=== PATIENT | male | born 1960 | race African-American/Black ===

== ENCOUNTER 2018-04-03 13:02 | Inpatient (IN) ==
[2018-04-03 13:26] LABS: Baso % (Auto) 0.3 % (0.0-2.0); Eos # (Auto) 0.1 th/mm3 (0.0-0.4); Eos % (Auto) 0.8 % (0.0-4.0); Hematocrit 37.2 % (39.0-51.0); Hemoglobin 12.6 gm/dL (13.0-17.0); Lymph # (Auto) 3.5 th/mm3 (1.0-4.8); Lymph % (Auto) 20.8 % (9.0-44.0); Mean Corpuscular HGB Conc 33.9 % (32.0-36.0); Mean Corpuscular Hemoglobin 29.9 pg (27.0-34.0); Mean Corpuscular Volume 88.3 fL (80.0-100.0); Mean Platelet Volume 7.7 fL (7.0-11.0); Mono % (Auto) 5.9 % (0.0-8.0); Neut # (Auto) 12.3 th/mm3 (1.8-7.7); Neut % (Auto) 72.2 % (16.0-70.0); Platelet Count 198 th/mm3 (150-450); Red Blood Count 4.21 mil/mm3 (4.50-5.90); Red Cell Distribution Width 15.6 % (11.6-17.2)
[2018-04-03] MEDS ORDERED: fentaNYL Citrate Inj 100 MCG/2 ML Ampul ONE ×2 (13:29→16:24)
[2018-04-03 13:42] LABS: Activated Partial Thrombo Time 20.2 sec (24.3-30.1); Prothrombin Time 10.5 sec (9.8-11.6)
[2018-04-03 13:43] LABS: Anion Gap 8 meq/L (5-15); Blood Urea Nitrogen 12 mg/dL (7-18); Chloride 110 meq/L (98-107); Glomerular Filtration Rate 60 mL/min (>89); Glucose,Random 108 mg/dL (74-106); Potassium 4.3 meq/L (3.5-5.1); Sodium 145 meq/L (136-145)
[2018-04-03] MEDS ORDERED: fentaNYL Citrate Inj 100 MCG/2 ML Ampul IV.PUSH ONE (13:43)
[2018-04-03] MEDS ORDERED: HYDROmorphone PF Inj 2 MG/ML Vial IV.PUSH ONE (13:43)
--- NOTE | 2018-04-03 13:43 | ED ---
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 11 (7-18) mg/dL Creatinine 0.92 (0.60-1.30) mg/dL POC Creatinine (0.6-1.3) mg/dL Estimated GFR 85 L (>89) mL/min POC Glucose (68-110) mg/dL Random Glucose 124 H (74-106) mg/dL Lactic Acid (0.4-2.0) mmol/L Calcium 7.1 L* (8.5-10.1) mg/dL Prot Corrected Calcium 7.9 L (8.5-10.1) mg/dL Total Bilirubin (0.2-1.0) mg/dL AST (15-37) U/L ALT (12-78) U/L Alkaline Phosphatase (45-117) U/L Total Creatine Kinase 2599 H (39-308) U/L CK-MB (CK-2) 3.2 (0.5-3.6) ng/mL CK-MB (CK-2) % 0.1 (0.0-4.0) % Total Protein 5.6 L (6.4-8.2) g/dL Albumin (3.4-5.0) g/dL Vit D 1,25-Dihydroxy (18-64) pg/mL Urine Color (Yellw/Straw) Urine Clarity (Clear) Urine pH (5.0-8.5) Ur Specific [place] (1.002-1.035) Urine Protein (Neg-Trace) mg/dL Urine Glucose (UA) (Negative) mg/dL Urine Ketones (Negative) mg/dL Urine Occult Blood (Negative) Urine Nitrate (Negative) Urine Bilirubin (Negative) Urine Urobilinogen (Less than 2) mg/dL Ur Leukocyte Esterase (Negative) Urine RBC (0-3) /hpf Urine WBC (0-5) /hpf Urine Bacteria (None) /hpf Micro UA Comment Ur Microscopic Review Urine Culture Comments Nasal Screen MRSA (PCR) (Negative) Random Vancomycin Comment Urine Opiates Screen (Neg) Ur Barbiturates Screen (Neg) Ur Amphetamines Screen (Neg) U Benzodiazepines Scrn (Neg) Urine Cocaine Screen (Neg) U Cannabinoids Screen (Neg) Serum Alcohol (0-5) mg/dL Blood Type Antibody Screen MTS Gel Crossmatch Bld Prod Order Comment 04/06/18 04/07/18 04/07/18 Range/Units 10:04 04:35 04:35 WBC 8.4 (4.0-11.0) th/mm3 RBC 2.57 L (4.50-5.90) mil/mm3 Hgb 7.6 L (13.0-17.0) gm/dL POC Hgb (Calc) (13.0-17.0) g/dL Hct 22.6 L (39.0-51.0) % POC Hct (39-51.0) % MCV 88.0 (80.0-100.0) fL MCH 29.7 (27.0-34.0) pg MCHC 33.7 (32.0-36.0) % RDW 16.1 (11.6-17.2) % Plt Count 148 L (150-450) th/mm3 MPV 7.8 (7.0-11.0) fL Prelim Diff (Auto) Slide review pending Neut % (Auto) 67.8 (16.0-70.0) % Lymph % (Auto) 17.2 (9.0-44.0) % [place] % (Auto) 12.7 H (0.0-8.0) % Eos % (Auto) 1.4 (0.0-4.0) % Baso % (Auto) 0.9 (0.0-2.0) % Neut # (Auto) 5.7 (1.8-7.7) th/mm3 Lymph # (Auto) 1.5 (1.0-4.8) th/mm3 [place] # (Auto) 1.1 H (0.0-0.9) th/mm3 Eos # (Auto) 0.1 (0.0-0.4) th/mm3 Baso # (Auto) 0.1 (0.0-0.2) th/mm3 WBC Differential Manual diff final Diff Scan Seg Neuts % (Manual) 66 (16-70) % Band Neuts % (Manual) 1 (0-6) % Lymphocytes % (Manual) 17 (9-44) % Monocytes % (Manual) 10 H (0-8) % Eosinophils % (Manual) 3 (0-4) % Metamyelocytes % (Man) 2 H (0-1) % Myelocytes % (Man) 1 H (0-0) % Promyelocytes % (Man) (0-0) % Abs Neuts (Manual) 5.9 (1.8-7.7) th/mm3 Nucleated RBCs/100 WBC (0-0) /100 WBC Differential Comment . Platelet Estimate Low L (Normal) Platelet Morphology Normal (Normal) PT (9.8-11.6) sec INR Ratio APTT (24.3-30.1) sec Fibrinogen (227-377) mg/dL POC Sodium (137-144) mmol/L Sodium 140 (136-145) meq/L POC Potassium (3.6-5.0) mmol/L Potassium 4.1 (3.5-5.1) meq/L POC Chloride (102-111) mmol/L Chloride 104 (98-107) meq/L Carbon Dioxide 29.5 (21.0-32.0) meq/L Anion Gap 7 (5-15) meq/L POC BUN (5-21) mg/dL BUN 9 (7-18) mg/dL Creatinine 0.78 (0.60-1.30) mg/dL POC Creatinine (0.6-1.3) mg/dL Estimated GFR Greater than 89 (>89) mL/min POC Glucose (68-110) mg/dL Random Glucose 101 (74-106) mg/dL Lactic Acid (0.4-2.0) mmol/L Calcium 7.3 L* (8.5-10.1) mg/dL Prot Corrected Calcium 8.2 L (8.5-10.1) mg/dL Total Bilirubin (0.2-1.0) mg/dL AST (15-37) U/L ALT (12-78) U/L Alkaline Phosphatase (45-117) U/L Total Creatine Kinase (39-308) U/L CK-MB (CK-2) (0.5-3.6) ng/mL CK-MB (CK-2) % (0.0-4.0) % Total Protein 5.5 L (6.4-8.2) g/dL Albumin (3.4-5.0) g/dL Vit D 1,25-Dihydroxy 50 (18-64) pg/mL Urine Color (Yellw/Straw) Urine Clarity (Clear) Urine pH (5.0-8.5) Ur Specific [place] (1.002-1.035) Urine Protein (Neg-Trace) mg/dL Urine Glucose (UA) (Negative) mg/dL Urine Ketones (Negative) mg/dL Urine Occult Blood (Negative) Urine Nitrate (Negative) Urine Bilirubin (Negative) Urine Urobilinogen (Less than 2) mg/dL Ur Leukocyte Esterase (Negative) Urine RBC (0-3) /hpf Urine WBC (0-5) /hpf Urine Bacteria (None) /hpf Micro UA Comment Ur Microscopic Review Urine Culture Comments Nasal Screen MRSA (PCR) (Negative) Random Vancomycin Comment Urine Opiates Screen (Neg) Ur Barbiturates Screen (Neg) Ur Amphetamines Screen (Neg) U Benzodiazepines Scrn (Neg) Urine Cocaine Screen (Neg) U Cannabinoids Screen (Neg) Serum Alcohol (0-5) mg/dL Blood Type Antibody Screen MTS Gel Crossmatch Bld Prod Order Comment 04/08/18 04/08/18 04/10/18 Range/Units 03:25 03:25 03:51 WBC 8.8 10.1 (4.0-11.0) th/mm3 RBC 2.69 L 3.02 L (4.50-5.90) mil/mm3 Hgb 8.1 L 8.8 L (13.0-17.0) gm/dL POC Hgb (Calc) (13.0-17.0) g/dL Hct 23.4 L 26.4 L (39.0-51.0) % POC Hct (39-51.0) % MCV 86.7 87.5 (80.0-100.0) fL MCH 29.9 29.1 (27.0-34.0) pg MCHC 34.4 33.2 (32.0-36.0) % RDW 15.8 16.2 (11.6-17.2) % Plt Count 178 259 D (150-450) th/mm3 MPV 7.3 7.6 (7.0-11.0) fL Prelim Diff (Auto) Slide review pending Slide review pending Neut % (Auto) 64.5 64.1 (16.0-70.0) % Lymph % (Auto) 17.7 18.5 (9.0-44.0) % [place] % (Auto) 13.2 H 12.9 H (0.0-8.0) % Eos % (Auto) 4.0 3.9 (0.0-4.0) % Baso % (Auto) 0.6 0.6 (0.0-2.0) % Neut # (Auto) 5.6 6.5 (1.8-7.7) th/mm3 Lymph # (Auto) 1.5 1.9 (1.0-4.8) th/mm3 [place] # (Auto) 1.2 H 1.3 H (0.0-0.9) th/mm3 Eos # (Auto) 0.4 0.4 (0.0-0.4) th/mm3 Baso # (Auto) 0.1 0.1 (0.0-0.2) th/mm3 WBC Differential Manual diff final Manual diff final Diff Scan Seg Neuts % (Manual) 73 H 64 (16-70) % Band Neuts % (Manual) 2 1 (0-6) % Lymphocytes % (Manual) 9 21 (9-44) % Monocytes % (Manual) 10 H 12 H (0-8) % Eosinophils % (Manual) 4 1 (0-4) % Metamyelocytes % (Man) 1 (0-1) % Myelocytes % (Man) 1 H (0-0) % Promyelocytes % (Man) 1 H (0-0) % Abs Neuts (Manual) 6.8 6.7 (1.8-7.7) th/mm3 Nucleated RBCs/100 WBC 2 H (0-0) /100 WBC Differential Comment . . Platelet Estimate Normal Normal (Normal) Platelet Morphology Normal Clumped H (Normal) PT (9.8-11.6) sec INR Ratio APTT (24.3-30.1) sec Fibrinogen (227-377) mg/dL POC Sodium (137-144) mmol/L Sodium 138 (136-145) meq/L POC Potassium (3.6-5.0) mmol/L Potassium 3.5 (3.5-5.1) meq/L POC Chloride (102-111) mmol/L Chloride 101 (98-107) meq/L Carbon Dioxide 28.0 (21.0-32.0) meq/L Anion Gap 9 (5-15) meq/L POC BUN (5-21) mg/dL BUN 6 L (7-18) mg/dL Creatinine 0.82 (0.60-1.30) mg/dL POC Creatinine (0.6-1.3) mg/dL Estimated GFR Greater than 89 (>89) mL/min POC Glucose (68-110) mg/dL Random Glucose 98 (74-106) mg/dL Lactic Acid (0.4-2.0) mmol/L Calcium 7.1 L* (8.5-10.1) mg/dL Prot Corrected Calcium 7.9 L (8.5-10.1) mg/dL Total Bilirubin (0.2-1.0) mg/dL AST (15-37) U/L ALT (12-78) U/L Alkaline Phosphatase (45-117) U/L Total Creatine Kinase 1053 H (39-308) U/L CK-MB (CK-2) Less than 1.0 (0.5-3.6) ng/mL CK-MB (CK-2) % 0.1 (0.0-4.0) % Total Protein 5.6 L (6.4-8.2) g/dL Albumin (3.4-5.0) g/dL Vit D 1,25-Dihydroxy (18-64) pg/mL Urine Color (Yellw/Straw) Urine Clarity (Clear) Urine pH (5.0-8.5) Ur Specific [place] (1.002-1.035) Urine Protein (Neg-Trace) mg/dL Urine Glucose (UA) (Negative) mg/dL Urine Ketones (Negative) mg/dL Urine Occult Blood (Negative) Urine Nitrate (Negative) Urine Bilirubin (Negative) Urine Urobilinogen (Less than 2) mg/dL Ur Leukocyte Esterase (Negative) Urine RBC (0-3) /hpf Urine WBC (0-5) /hpf Urine Bacteria (None) /hpf Micro UA Comment Ur Microscopic Review Urine Culture Comments Nasal Screen MRSA (PCR) (Negative) Random Vancomycin Comment Urine Opiates Screen (Neg) Ur Barbiturates Screen (Neg) Ur Amphetamines Screen (Neg) U Benzodiazepines Scrn (Neg) Urine Cocaine Screen (Neg) U Cannabinoids Screen (Neg) Serum Alcohol (0-5) mg/dL Blood Type Antibody Screen MTS Gel Crossmatch Bld Prod Order Comment 04/10/18 04/10/18 04/11/18 Range/Units 03:51 21:55 00:29 WBC (4.0-11.0) th/mm3 RBC (4.50-5.90) mil/mm3 Hgb (13.0-17.0) gm/dL POC Hgb (Calc) (13.0-17.0) g/dL Hct (39.0-51.0) % POC Hct (39-51.0) % MCV (80.0-100.0) fL MCH (27.0-34.0) pg MCHC (32.0-36.0) % RDW (11.6-17.2) % Plt Count (150-450) th/mm3 MPV (7.0-11.0) fL Prelim Diff (Auto) Neut % (Auto) (16.0-70.0) % Lymph % (Auto) (9.0-44.0) % [place] % (Auto) (0.0-8.0) % Eos % (Auto) (0.0-4.0) % Baso % (Auto) (0.0-2.0) % Neut # (Auto) (1.8-7.7) th/mm3 Lymph # (Auto) (1.0-4.8) th/mm3 [place] # (Auto) (0.0-0.9) th/mm3 Eos # (Auto) (0.0-0.4) th/mm3 Baso # (Auto) (0.0-0.2) th/mm3 WBC Differential Diff Scan Seg Neuts % (Manual) (16-70) % Band Neuts % (Manual) (0-6) % Lymphocytes % (Manual) (9-44) % Monocytes % (Manual) (0-8) % Eosinophils % (Manual) (0-4) % Metamyelocytes % (Man) (0-1) % Myelocytes % (Man) (0-0) % Promyelocytes % (Man) (0-0) % Abs Neuts (Manual) (1.8-7.7) th/mm3 Nucleated RBCs/100 WBC (0-0) /100 WBC Differential Comment Platelet Estimate (Normal) Platelet Morphology (Normal) PT (9.8-11.6) sec INR Ratio APTT (24.3-30.1) sec Fibrinogen (227-377) mg/dL POC Sodium (137-144) mmol/L Sodium 136 (136-145) meq/L POC Potassium (3.6-5.0) mmol/L Potassium 4.7 (3.5-5.1) meq/L POC Chloride (102-111) mmol/L Chloride 99 (98-107) meq/L Carbon Dioxide 29.3 (21.0-32.0) meq/L Anion Gap 8 (5-15) meq/L POC BUN (5-21) mg/dL BUN 12 (7-18) mg/dL Creatinine 0.89 (0.60-1.30) mg/dL POC Creatinine (0.6-1.3) mg/dL Estimated GFR Greater than 89 (>89) mL/min POC Glucose (68-110) mg/dL Random Glucose 91 (74-106) mg/dL Lactic Acid 2.3 H 1.6 (0.4-2.0) mmol/L Calcium 8.6 (8.5-10.1) mg/dL Prot Corrected Calcium (8.5-10.1) mg/dL Total Bilirubin 0.5 (0.2-1.0) mg/dL AST 74 H (15-37) U/L ALT 33 (12-78) U/L Alkaline Phosphatase 105 (45-117) U/L Total Creatine Kinase (39-308) U/L CK-MB (CK-2) (0.5-3.6) ng/mL CK-MB (CK-2) % (0.0-4.0) % Total Protein 6.3 L D (6.4-8.2) g/dL Albumin 1.8 L (3.4-5.0) g/dL Vit D 1,25-Dihydroxy (18-64) pg/mL Urine Color (Yellw/Straw) Urine Clarity (Clear) Urine pH (5.0-8.5) Ur Specific [place] (1.002-1.035) Urine Protein (Neg-Trace) mg/dL Urine Glucose (UA) (Negative) mg/dL Urine Ketones (Negative) mg/dL Urine Occult Blood (Negative) Urine Nitrate (Negative) Urine Bilirubin (Negative) Urine Urobilinogen (Less than 2) mg/dL Ur Leukocyte Esterase (Negative) Urine RBC (0-3) /hpf Urine WBC (0-5) /hpf Urine Bacteria (None) /hpf Micro UA Comment Ur Microscopic Review Urine Culture Comments Nasal Screen MRSA (PCR) (Negative) Random Vancomycin Comment Urine Opiates Screen (Neg) Ur Barbiturates Screen (Neg) Ur Amphetamines Screen (Neg) U Benzodiazepines Scrn (Neg) Urine Cocaine Screen (Neg) U Cannabinoids Screen (Neg) Serum Alcohol (0-5) mg/dL Blood Type Antibody Screen MTS Gel Crossmatch Bld Prod Order Comment 04/11/18 04/12/18 04/12/18 Range/Units 03:54 07:32 18:45 WBC (4.0-11.0) th/mm3 RBC (4.50-5.90) mil/mm3 Hgb (13.0-17.0) gm/dL POC Hgb (Calc) (13.0-17.0) g/dL Hct (39.0-51.0) % POC Hct (39-51.0) % MCV (80.0-100.0) fL MCH (27.0-34.0) pg MCHC (32.0-36.0) % RDW (11.6-17.2) % Plt Count (150-450) th/mm3 MPV (7.0-11.0) fL Prelim Diff (Auto) Neut % (Auto) (16.0-70.0) % Lymph % (Auto) (9.0-44.0) % [place] % (Auto) (0.0-8.0) % Eos % (Auto) (0.0-4.0) % Baso % (Auto) (0.0-2.0) % Neut # (Auto) (1.8-7.7) th/mm3 Lymph # (Auto) (1.0-4.8) th/mm3 [place] # (Auto) (0.0-0.9) th/mm3 Eos # (Auto) (0.0-0.4) th/mm3 Baso # (Auto) (0.0-0.2) th/mm3 WBC Differential Diff Scan Seg Neuts % (Manual) (16-70) % Band Neuts % (Manual) (0-6) % Lymphocytes % (Manual) (9-44) % Monocytes % (Manual) (0-8) % Eosinophils % (Manual) (0-4) % Metamyelocytes % (Man) (0-1) % Myelocytes % (Man) (0-0) % Promyelocytes % (Man) (0-0) % Abs Neuts (Manual) (1.8-7.7) th/mm3 Nucleated RBCs/100 WBC (0-0) /100 WBC Differential Comment Platelet Estimate (Normal) Platelet Morphology (Normal) PT (9.8-11.6) sec INR Ratio APTT (24.3-30.1) sec Fibrinogen (227-377) mg/dL POC Sodium (137-144) mmol/L Sodium (136-145) meq/L POC Potassium (3.6-5.0) mmol/L Potassium (3.5-5.1) meq/L POC Chloride (102-111) mmol/L Chloride (98-107) meq/L Carbon Dioxide (21.0-32.0) meq/L Anion Gap (5-15) meq/L POC BUN (5-21) mg/dL BUN (7-18) mg/dL Creatinine 1.22 1.47 H (0.60-1.30) mg/dL POC Creatinine (0.6-1.3) mg/dL Estimated GFR 74 L 60 L (>89) mL/min POC Glucose (68-110) mg/dL Random Glucose (74-106) mg/dL Lactic Acid (0.4-2.0) mmol/L Calcium (8.5-10.1) mg/dL Prot Corrected Calcium (8.5-10.1) mg/dL Total Bilirubin (0.2-1.0) mg/dL AST (15-37) U/L ALT (12-78) U/L Alkaline Phosphatase (45-117) U/L Total Creatine Kinase 550 H (39-308) U/L CK-MB (CK-2) Less than 1.0 (0.5-3.6) ng/mL CK-MB (CK-2) % 0.2 (0.0-4.0) % Total Protein (6.4-8.2) g/dL Albumin (3.4-5.0) g/dL Vit D 1,25-Dihydroxy (18-64) pg/mL Urine Color (Yellw/Straw) Urine Clarity (Clear) Urine pH (5.0-8.5) Ur Specific [place] (1.002-1.035) Urine Protein (Neg-Trace) mg/dL Urine Glucose (UA) (Negative) mg/dL Urine Ketones (Negative) mg/dL Urine Occult Blood (Negative) Urine Nitrate (Negative) Urine Bilirubin (Negative) Urine Urobilinogen (Less than 2) mg/dL Ur Leukocyte Esterase (Negative) Urine RBC (0-3) /hpf Urine WBC (0-5) /hpf Urine Bacteria (None) /hpf Micro UA Comment Ur Microscopic Review Urine Culture Comments Nasal Screen MRSA (PCR) (Negative) Random Vancomycin 13.8 Comment Urine Opiates Screen (Neg) Ur Barbiturates Screen (Neg) Ur Amphetamines Screen (Neg) U Benzodiazepines Scrn (Neg) Urine Cocaine Screen (Neg) U Cannabinoids Screen (Neg) Serum Alcohol (0-5) mg/dL Blood Type Antibody Screen MTS Gel Crossmatch Bld Prod Order Comment 10/11/2404/13/18 04/13/18 Range/Units 03:45 05:11 07:26 WBC (4.0-11.0) th/mm3 RBC (4.50-5.90) mil/mm3 Hgb 7.3 L (13.0-17.0) gm/dL POC Hgb (Calc) (13.0-17.0) g/dL Hct 22.5 L (39.0-51.0) % POC Hct (39-51.0) % MCV (80.0-100.0) fL MCH (27.0-34.0) pg MCHC (32.0-36.0) % RDW (11.6-17.2) % Plt Count (150-450) th/mm3 MPV (7.0-11.0) fL Prelim Diff (Auto) Neut % (Auto) (16.0-70.0) % Lymph % (Auto) (9.0-44.0) % [place] % (Auto) (0.0-8.0) % Eos % (Auto) (0.0-4.0) % Baso % (Auto) (0.0-2.0) % Neut # (Auto) (1.8-7.7) th/mm3 Lymph # (Auto) (1.0-4.8) th/mm3 [place] # (Auto) (0.0-0.9) th/mm3 Eos # (Auto) (0.0-0.4) th/mm3 Baso # (Auto) (0.0-0.2) th/mm3 WBC Differential Diff Scan Seg Neuts % (Manual) (16-70) % Band Neuts % (Manual) (0-6) % Lymphocytes % (Manual) (9-44) % Monocytes % (Manual) (0-8) % Eosinophils % (Manual) (0-4) % Metamyelocytes % (Man) (0-1) % Myelocytes % (Man) (0-0) % Promyelocytes % (Man) (0-0) % Abs Neuts (Manual) (1.8-7.7) th/mm3 Nucleated RBCs/100 WBC (0-0) /100 WBC Differential Comment Platelet Estimate (Normal) Platelet Morphology (Normal) PT (9.8-11.6) sec INR Ratio APTT (24.3-30.1) sec Fibrinogen (227-377) mg/dL POC Sodium (137-144) mmol/L Sodium (136-145) meq/L POC Potassium (3.6-5.0) mmol/L Potassium (3.5-5.1) meq/L POC Chloride (102-111) mmol/L Chloride (98-107) meq/L Carbon Dioxide (21.0-32.0) meq/L Anion Gap (5-15) meq/L POC BUN (5-21) mg/dL BUN (7-18) mg/dL Creatinine 1.27 (0.60-1.30) mg/dL POC Creatinine (0.6-1.3) mg/dL Estimated GFR 71 L (>89) mL/min POC Glucose (68-110) mg/dL Random Glucose (74-106) mg/dL Lactic Acid (0.4-2.0) mmol/L Calcium (8.5-10.1) mg/dL Prot Corrected Calcium (8.5-10.1) mg/dL Total Bilirubin (0.2-1.0) mg/dL AST (15-37) U/L ALT (12-78) U/L Alkaline Phosphatase (45-117) U/L Total Creatine Kinase (39-308) U/L CK-MB (CK-2) (0.5-3.6) ng/mL CK-MB (CK-2) % (0.0-4.0) % Total Protein (6.4-8.2) g/dL Albumin (3.4-5.0) g/dL Vit D 1,25-Dihydroxy (18-64) pg/mL Urine Color (Yellw/Straw) Urine Clarity (Clear) Urine pH (5.0-8.5) Ur Specific [place] (1.002-1.035) Urine Protein (Neg-Trace) mg/dL Urine Glucose (UA) (Negative) mg/dL Urine Ketones (Negative) mg/dL Urine Occult Blood (Negative) Urine Nitrate (Negative) Urine Bilirubin (Negative) Urine Urobilinogen (Less than 2) mg/dL Ur Leukocyte Esterase (Negative) Urine RBC (0-3) /hpf Urine WBC (0-5) /hpf Urine Bacteria (None) /hpf Micro UA Comment Ur Microscopic Review Urine Culture Comments Nasal Screen MRSA (PCR) (Negative) Random Vancomycin Comment Urine Opiates Screen (Neg) Ur Barbiturates Screen (Neg) Ur Amphetamines Screen (Neg) U Benzodiazepines Scrn (Neg) Urine Cocaine Screen (Neg) U Cannabinoids Screen (Neg) Serum Alcohol (0-5) mg/dL Blood Type O Positive Antibody Screen Negative MTS Gel Crossmatch See Detail Bld Prod Order Comment 04/14/18 04/15/18 04/16/18 Range/Units 04:29 05:46 15:40 WBC (4.0-11.0) th/mm3 RBC (4.50-5.90) mil/mm3 Hgb 8.3 L 8.6 L (13.0-17.0) gm/dL POC Hgb (Calc) (13.0-17.0) g/dL Hct 25.0 L 26.1 L (39.0-51.0) % POC Hct (39-51.0) % MCV (80.0-100.0) fL MCH (27.0-34.0) pg MCHC (32.0-36.0) % RDW (11.6-17.2) % Plt Count (150-450) th/mm3 MPV (7.0-11.0) fL Prelim Diff (Auto) Neut % (Auto) (16.0-70.0) % Lymph % (Auto) (9.0-44.0) % [place] % (Auto) (0.0-8.0) % Eos % (Auto) (0.0-4.0) % Baso % (Auto) (0.0-2.0) % Neut # (Auto) (1.8-7.7) th/mm3 Lymph # (Auto) (1.0-4.8) th/mm3 [place] # (Auto) (0.0-0.9) th/mm3 Eos # (Auto) (0.0-0.4) th/mm3 Baso # (Auto) (0.0-0.2) th/mm3 WBC Differential Diff Scan Seg Neuts % (Manual) (16-70) % Band Neuts % (Manual) (0-6) % Lymphocytes % (Manual) (9-44) % Monocytes % (Manual) (0-8) % Eosinophils % (Manual) (0-4) % Metamyelocytes % (Man) (0-1) % Myelocytes % (Man) (0-0) % Promyelocytes % (Man) (0-0) % Abs Neuts (Manual) (1.8-7.7) th/mm3 Nucleated RBCs/100 WBC (0-0) /100 WBC Differential Comment Platelet Estimate (Normal) Platelet Morphology (Normal) PT (9.8-11.6) sec INR Ratio APTT (24.3-30.1) sec Fibrinogen (227-377) mg/dL POC Sodium (137-144) mmol/L Sodium (136-145) meq/L POC Potassium (3.6-5.0) mmol/L Potassium (3.5-5.1) meq/L POC Chloride (102-111) mmol/L Chloride (98-107) meq/L Carbon Dioxide (21.0-32.0) meq/L Anion Gap (5-15) meq/L POC BUN (5-21) mg/dL BUN (7-18) mg/dL Creatinine 1.12 (0.60-1.30) mg/dL POC Creatinine (0.6-1.3) mg/dL Estimated GFR 82 L (>89) mL/min POC Glucose (68-110) mg/dL Random Glucose (74-106) mg/dL Lactic Acid (0.4-2.0) mmol/L Calcium (8.5-10.1) mg/dL Prot Corrected Calcium (8.5-10.1) mg/dL Total Bilirubin (0.2-1.0) mg/dL AST (15-37) U/L ALT (12-78) U/L Alkaline Phosphatase (45-117) U/L Total Creatine Kinase (39-308) U/L CK-MB (CK-2) (0.5-3.6) ng/mL CK-MB (CK-2) % (0.0-4.0) % Total Protein (6.4-8.2) g/dL Albumin (3.4-5.0) g/dL Vit D 1,25-Dihydroxy (18-64) pg/mL Urine Color (Yellw/Straw) Urine Clarity (Clear) Urine pH (5.0-8.5) Ur Specific [place] (1.002-1.035) Urine Protein (Neg-Trace) mg/dL Urine Glucose (UA) (Negative) mg/dL Urine Ketones (Negative) mg/dL Urine Occult Blood (Negative) Urine Nitrate (Negative) Urine Bilirubin (Negative) Urine Urobilinogen (Less than 2) mg/dL Ur Leukocyte Esterase (Negative) Urine RBC (0-3) /hpf Urine WBC (0-5) /hpf Urine Bacteria (None) /hpf Micro UA Comment Ur Microscopic Review Urine Culture Comments Nasal Screen MRSA (PCR) (Negative) Random Vancomycin Comment Urine Opiates Screen (Neg) Ur Barbiturates Screen (Neg) Ur Amphetamines Screen (Neg) U Benzodiazepines Scrn (Neg) Urine Cocaine Screen (Neg) U Cannabinoids Screen (Neg) Serum Alcohol (0-5) mg/dL Blood Type Antibody Screen MTS Gel Crossmatch Bld Prod Order Comment 04/20/18 04/20/18 04/20/18 Range/Units 02:30 02:30 03:16 WBC 12.7 H (4.0-11.0) th/mm3 RBC 2.94 L (4.50-5.90) mil/mm3 Hgb 8.6 L (13.0-17.0) gm/dL POC Hgb (Calc) (13.0-17.0) g/dL Hct 25.4 L (39.0-51.0) % POC Hct (39-51.0) % MCV 86.4 (80.0-100.0) fL MCH 29.2 (27.0-34.0) pg MCHC 33.7 (32.0-36.0) % RDW 15.5 (11.6-17.2) % Plt Count 502 H D (150-450) th/mm3 MPV 7.0 (7.0-11.0) fL Prelim Diff (Auto) Slide review pending Neut % (Auto) 73.4 H (16.0-70.0) % Lymph % (Auto) 14.6 (9.0-44.0) % [place] % (Auto) 11.3 H (0.0-8.0) % Eos % (Auto) 0.3 (0.0-4.0) % Baso % (Auto) 0.4 (0.0-2.0) % Neut # (Auto) 9.3 H (1.8-7.7) th/mm3 Lymph # (Auto) 1.9 (1.0-4.8) th/mm3 [place] # (Auto) 1.4 H (0.0-0.9) th/mm3 Eos # (Auto) 0.0 (0.0-0.4) th/mm3 Baso # (Auto) 0.1 (0.0-0.2) th/mm3 WBC Differential . Diff Scan Auto diff confirmed Seg Neuts % (Manual) (16-70) % Band Neuts % (Manual) (0-6) % Lymphocytes % (Manual) (9-44) % Monocytes % (Manual) (0-8) % Eosinophils % (Manual) (0-4) % Metamyelocytes % (Man) (0-1) % Myelocytes % (Man) (0-0) % Promyelocytes % (Man) (0-0) % Abs Neuts (Manual) (1.8-7.7) th/mm3 Nucleated RBCs/100 WBC (0-0) /100 WBC Differential Comment . Platelet Estimate High H (Normal) Platelet Morphology Normal (Normal) PT (9.8-11.6) sec INR Ratio APTT (24.3-30.1) sec Fibrinogen (227-377) mg/dL POC Sodium (137-144) mmol/L Sodium 129 L (136-145) meq/L POC Potassium (3.6-5.0) mmol/L Potassium 4.6 (3.5-5.1) meq/L POC Chloride (102-111) mmol/L Chloride 95 L (98-107) meq/L Carbon Dioxide 29.3 (21.0-32.0) meq/L Anion Gap 5 (5-15) meq/L POC BUN (5-21) mg/dL BUN 22 H (7-18) mg/dL Creatinine 1.31 H (0.60-1.30) mg/dL POC Creatinine (0.6-1.3) mg/dL Estimated GFR 69 L (>89) mL/min POC Glucose (68-110) mg/dL Random Glucose 118 H (74-106) mg/dL Lactic Acid (0.4-2.0) mmol/L Calcium 8.6 (8.5-10.1) mg/dL Prot Corrected Calcium (8.5-10.1) mg/dL Total Bilirubin (0.2-1.0) mg/dL AST (15-37) U/L ALT (12-78) U/L Alkaline Phosphatase (45-117) U/L Total Creatine Kinase (39-308) U/L CK-MB (CK-2) (0.5-3.6) ng/mL CK-MB (CK-2) % (0.0-4.0) % Total Protein (6.4-8.2) g/dL Albumin (3.4-5.0) g/dL Vit D 1,25-Dihydroxy 29 (18-64) pg/mL Urine Color (Yellw/Straw) Urine Clarity (Clear) Urine pH (5.0-8.5) Ur Specific [place] (1.002-1.035) Urine Protein (Neg-Trace) mg/dL Urine Glucose (UA) (Negative) mg/dL Urine Ketones (Negative) mg/dL Urine Occult Blood (Negative) Urine Nitrate (Negative) Urine Bilirubin (Negative) Urine Urobilinogen (Less than 2) mg/dL Ur Leukocyte Esterase (Negative) Urine RBC (0-3) /hpf Urine WBC (0-5) /hpf Urine Bacteria (None) /hpf Micro UA Comment Ur Microscopic Review Urine Culture Comments Nasal Screen MRSA (PCR) (Negative) Random Vancomycin Comment Urine Opiates Screen (Neg) Ur Barbiturates Screen (Neg) Ur Amphetamines Screen (Neg) U Benzodiazepines Scrn (Neg) Urine Cocaine Screen (Neg) U Cannabinoids Screen (Neg) Serum Alcohol (0-5) mg/dL Blood Type Antibody Screen MTS Gel Crossmatch Bld Prod Order Comment 04/23/18 04/23/18 04/26/18 Range/Units 03:40 03:40 04:13 WBC 8.1 (4.0-11.0) th/mm3 RBC 3.02 L (4.50-5.90) mil/mm3 Hgb 8.7 L (13.0-17.0) gm/dL POC Hgb (Calc) (13.0-17.0) g/dL Hct 26.5 L (39.0-51.0) % POC Hct (39-51.0) % MCV 87.7 (80.0-100.0) fL MCH 28.8 (27.0-34.0) pg MCHC 32.8 (32.0-36.0) % RDW 15.6 (11.6-17.2) % Plt Count 412 (150-450) th/mm3 MPV 7.1 (7.0-11.0) fL Prelim Diff (Auto) Slide review pending Neut % (Auto) 55.4 (16.0-70.0) % Lymph % (Auto) 25.6 (9.0-44.0) % [place] % (Auto) 13.9 H (0.0-8.0) % Eos % (Auto) 4.3 H (0.0-4.0) % Baso % (Auto) 0.8 (0.0-2.0) % Neut # (Auto) 4.5 (1.8-7.7) th/mm3 Lymph # (Auto) 2.1 (1.0-4.8) th/mm3 [place] # (Auto) 1.1 H (0.0-0.9) th/mm3 Eos # (Auto) 0.3 (0.0-0.4) th/mm3 Baso # (Auto) 0.1 (0.0-0.2) th/mm3 WBC Differential Manual diff final Diff Scan Seg Neuts % (Manual) 51 (16-70) % Band Neuts % (Manual) 4 (0-6) % Lymphocytes % (Manual) 29 (9-44) % Monocytes % (Manual) 6 (0-8) % Eosinophils % (Manual) 7 H (0-4) % Metamyelocytes % (Man) 2 H (0-1) % Myelocytes % (Man) 1 H (0-0) % Promyelocytes % (Man) (0-0) % Abs Neuts (Manual) 4.7 (1.8-7.7) th/mm3 Nucleated RBCs/100 WBC (0-0) /100 WBC Differential Comment . Platelet Estimate Normal (Normal) Platelet Morphology Normal (Normal) PT (9.8-11.6) sec INR Ratio APTT (24.3-30.1) sec Fibrinogen (227-377) mg/dL POC Sodium (137-144) mmol/L Sodium 135 L 135 L (136-145) meq/L POC Potassium (3.6-5.0) mmol/L Potassium 4.8 4.4 (3.5-5.1) meq/L POC Chloride (102-111) mmol/L Chloride 97 L 97 L (98-107) meq/L Carbon Dioxide 30.1 30.1 (21.0-32.0) meq/L Anion Gap 8 8 (5-15) meq/L POC BUN (5-21) mg/dL BUN 12 9 (7-18) mg/dL Creatinine 1.06 0.98 (0.60-1.30) mg/dL POC Creatinine (0.6-1.3) mg/dL Estimated GFR 88 L Greater than 89 (>89) mL/min POC Glucose (68-110) mg/dL Random Glucose 94 108 H (74-106) mg/dL Lactic Acid (0.4-2.0) mmol/L Calcium 8.5 7.9 L (8.5-10.1) mg/dL Prot Corrected Calcium (8.5-10.1) mg/dL Total Bilirubin 0.3 (0.2-1.0) mg/dL AST 34 (15-37) U/L ALT 14 (12-78) U/L Alkaline Phosphatase 104 (45-117) U/L Total Creatine Kinase (39-308) U/L CK-MB (CK-2) (0.5-3.6) ng/mL CK-MB (CK-2) % (0.0-4.0) % Total Protein 7.0 (6.4-8.2) g/dL Albumin 1.9 L (3.4-5.0) g/dL Vit D 1,25-Dihydroxy (18-64) pg/mL Urine Color (Yellw/Straw) Urine Clarity (Clear) Urine pH (5.0-8.5) Ur Specific [place] (1.002-1.035) Urine Protein (Neg-Trace) mg/dL Urine Glucose (UA) (Negative) mg/dL Urine Ketones (Negative) mg/dL Urine Occult Blood (Negative) Urine Nitrate (Negative) Urine Bilirubin (Negative) Urine Urobilinogen (Less than 2) mg/dL Ur

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
[2018-04-03] MEDS ORDERED: Succinylcholine Inj 100 MG/5 ML Syringe IV.PUSH ONE (14:10)
[2018-04-03] MEDS ORDERED: Lidocaine PF 1% Inj 5 ML Syringe OTHER ONE (14:10)
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
[2018-04-03] MEDS ORDERED: Phenylephrine/NS 1000 MCG/10ML Syringe IV.PUSH ONE (14:15)
[2018-04-03] MEDS ORDERED: ceFAZolin 2 GM Premix Inj 2 GM/50 ML PIGGYBACK IV.SIG ONE (14:16)
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
[2018-04-03] MEDS ORDERED: Glycopyrrolate Inj 1 MG/5 ML Syringe IV.PUSH ONE (15:20)
[2018-04-03] MEDS ORDERED: Neostigmine Inj 5 MG/5 ML Syringe IV.PUSH ONE (15:20)
[2018-04-03] MEDS ORDERED: Bisacodyl 10 MG Supp RECTAL PRN (15:22)
[2018-04-03] MEDS ORDERED: Post-op Orders (for Pharmacy) OTHER STA (15:22)
[2018-04-03] MEDS ORDERED: HYDROmorphone PF Inj 1 MG/ML Ampul IV.PUSH PRN (15:22)
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
--- NOTE | 2018-04-03 16:15 | XR ---
EXAM DATE: 04/03/2018 12:00 AM EDT AGE/SEX: 89 years / Male INDICATIONS: I+D of the left tibia. CLINICAL DATA: This is the patient's subsequent encounter. Patient reports that signs and symptoms h ave been present for 1 day and indicates a pain score of Nonresponsive. MEDICAL/SURGICAL HISTORY: Non-responsive. Non-responsive. COMPARISON: No prior exams available for comparison. FINDINGS: Spot films reveal oblique fracture through the distal femur. Also fractures of the medial and lateral malleolus. CONCLUSION: Fractures of the distal femur and distal tibia and fibula as above. Electronically signed by: Chaim Hanna MD 04/03/2018 4:14 PM EDT
[2018-04-03] MEDS ORDERED: Morphine Inj 4 MG/ML Vial ONE (16:24)
[2018-04-03] MEDS ORDERED: *Meperidine Inj 25 MG/ML Vial PERIprocedural Use ONLY ONE (16:28)
[2018-04-03] MEDS ORDERED: *morphine SULFATE 4 MG/ML PERIprocedure ONLY ONE ×2 (16:51→16:59)
[2018-04-03] MEDS: Pantoprazole Inj 40 MG Vial IV.PUSH SCH (18:32)
[2018-04-03] MEDS ORDERED: Naloxone Inj 0.4 MG/ML Vial IV.PUSH PRN (18:40)
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
[2018-04-03] MEDS: Senna/Docusate Sodium 8.6/50 MG Tablet PO SCH (21:06)
[2018-04-03] MEDS: HYDROmorphone PF Inj 2 MG/ML Vial IV.PUSH PRN (21:07)
[2018-04-03] MEDS: ceFAZolin Inj 2,000 MG in Sodium Chlor 0.9% Inj 80 ML IV.SIG SCH (21:39)
[2018-04-03 21:46] LABS: Hematocrit 28.3 % (39.0-51.0); Hemoglobin 9.5 gm/dL (13.0-17.0)
[2018-04-03] MEDS: Gentamicin/NS 80 mg Premix 100 ML IV.SIG SCH (22:12)
[2018-04-04] MEDS: HYDROmorphone PCA Inj 6 MG/30 ML PCA.VIAL PCA PRN ×2 (00:43→12:04)
[2018-04-04] MEDS: Chlorhexidine Gluconate 2% 1 Pack (2 Cloths) TOPICAL SCH (03:06)
[2018-04-04] MEDS ORDERED: Chlorhexidine Gluconate 2% 1 Pack (2 Cloths) TOPICAL PRN (04:00)
[2018-04-04] MEDS: ceFAZolin Inj 2,000 MG in Sodium Chlor 0.9% Inj 80 ML IV.SIG SCH ×3 (06:05→22:00)
[2018-04-04] MEDS: Gentamicin/NS 80 mg Premix 100 ML IV.SIG SCH ×3 (06:38→22:00)
--- NOTE | 2018-04-04 08:22 | P.PNOP ---
Subjective Interval history: s/p I&D with exfix and vac application left leg doing well. resting comfortably Physical Exam Vital signs: Vital Signs 04/03/18 13:42 04/03/18 16:13 04/03/18 16:30 Temperature 98.2 F Pulse Rate 120 H 113 H Respiratory Rate 18 18 Blood Pressure 100/68 100/67 Pulse Oximetry 100 98 98 04/03/18 16:45 04/03/18 17:00 04/03/18 18:00 Temperature 97.9 F 97.7 F Pulse Rate 108 H 101 H 110 H Respiratory Rate 18 18 22 Blood Pressure 106/72 110/66 107/60 Pulse Oximetry 98 98 04/03/18 19:52 04/03/18 20:00 04/03/18 21:37 Temperature 97.5 F L Pulse Rate 108 H Respiratory Rate 20 12 Blood Pressure 95/61 L Pulse Oximetry 100 100 04/04/18 00:00 04/04/18 04:00 04/04/18 06:31 Temperature 97.8 F 98.5 F Pulse Rate 100 H 96 H Respiratory Rate 24 18 12 Blood Pressure 107/73 131/66 Pulse Oximetry 100 100 Intake & Output 04/03/18 04/04/18 04/04/18 18:59 06:59 18:59 Intake Total 4170 / 4170 3740 / 3740 Output Total 915 / 915 870 / 870 Balance 3255 / 3255 2870 / 2870 Weight 94 kg 100.3 kg Intake: IV 50 / 50 2300 / 2300 LR 1000 mL Inj 1,000 ML @ 125 1000 / 1000 mls/hr IV.CONT .Q8H [facility] Rx#: [id number] Gentamicin/NS 80 mg Premix 100 100 / 100 ML @ 200 mls/hr IV.SIG Q8H [facility] Rx#:[id number] LR 1000 mL Inj 1,000 ML @ 999 1000 / 1000 mls/hr IV.SIG BOLUS ONE Rx#: [id number] Ancef 2 GM Premix Inj 2 gm In 50 / 50 50 ml @ 0 mls/hr IV.SIG .STK- MED ONE Rx#:[id number] Ancef Inj 2,000 MG In NS Inj 80 200 / 200 ML @ 200 mls/hr IV.SIG Q8H [facility] Rx#:[id number] Oral 620 / 620 1440 / 1440 Anesthesia Amount 3500 / 3500 Output: Estimated Blood Loss 150 / 150 Urine Amount (Catheter) 425 / 425 400 / 400 Indwelling Urethral Catheter 425 / 425 400 / 400 Wound Vac Amount 340 / 340 470 / 470 Left Leg 340 / 340 470 / 470 Other: Mode Setting Left Leg Continuous Continuous Right Lower Leg Continuous Date of Last Bowel Movement 04/03/18 04/03/18 Weight On Admission 87.09 kg Narrative: LLE: dressings clean and dry. intact. +vac. good seal. +exfix and splint - Urinary Catheter Management Indwelling Urethral Catheter Cath placed during this visit: yes Reason for continuing: Other continuation reason Insertion date: 04/03/18 Insertion time: 14:10 Results - Labs CBC & Chem 7: 04/03/18 21:34 04/03/18 13:05 Laboratory Results - last 24 hr 04/03/18 04/03/18 04/03/18 13:05 13:05 13:05 WBC 17.0 H RBC 4.21 L Hgb 12.6 L POC Hgb (Calc) 12.6 L Hct 37.2 L POC Hct 37.0 L MCV 88.3 MCH 29.9 MCHC 33.9 RDW 15.6 Plt Count 198 MPV 7.7 Neut % (Auto) 72.2 H Lymph % (Auto) 20.8 Carver % (Auto) 5.9 Eos % (Auto) 0.8 Baso % (Auto) 0.3 Neut # (Auto) 12.3 H Lymph # (Auto) 3.5 Carver # (Auto) 1.0 H Eos # (Auto) 0.1 Baso # (Auto) 0.0 WBC Differential . Differential Comment Auto diff final PT 10.5 INR 1.0 APTT 20.2 L Fibrinogen POC Sodium 142 Sodium POC Potassium 4.4 Potassium POC Chloride 104 Chloride Carbon Dioxide Anion Gap POC BUN 11 BUN Creatinine POC Creatinine 1.1 Estimated GFR POC Glucose 108 Random Glucose Calcium Nasal Screen MRSA (PCR) Serum Alcohol Blood Type Antibody Screen 04/03/18 04/03/18 04/03/18 13:05 13:05 13:05 WBC RBC Hgb POC Hgb (Calc) Hct POC Hct MCV MCH MCHC RDW Plt Count MPV Neut % (Auto) Lymph % (Auto) Carver % (Auto) Eos % (Auto) Baso % (Auto) Neut # (Auto) Lymph # (Auto) Carver # (Auto) Eos # (Auto) Baso # (Auto) WBC Differential Differential Comment PT INR APTT Fibrinogen 257 POC Sodium Sodium 145 POC Potassium Potassium 4.3 POC Chloride Chloride 110 H Carbon Dioxide 27.0 Anion Gap 8 POC BUN BUN 12 Creatinine 1.06 POC Creatinine Estimated GFR 60 L POC Glucose Random Glucose 108 H Calcium 8.0 L Nasal Screen MRSA (PCR) Serum Alcohol Less than 3 Blood Type O Positive Antibody Screen Negative 04/03/18 04/03/18 19:50 21:34 WBC RBC Hgb 9.5 L D POC Hgb (Calc) Hct 28.3 L POC Hct MCV MCH MCHC RDW Plt Count MPV Neut % (Auto) Lymph % (Auto) Carver % (Auto) Eos % (Auto) Baso % (Auto) Neut # (Auto) Lymph # (Auto) Carver # (Auto) Eos # (Auto) Baso # (Auto) WBC Differential Differential Comment PT INR APTT Fibrinogen POC Sodium Sodium POC Potassium Potassium POC Chloride Chloride Carbon Dioxide Anion Gap POC BUN BUN Creatinine POC Creatinine Estimated GFR POC Glucose Random Glucose Calcium Nasal Screen MRSA (PCR) Not detected Serum Alcohol Blood Type Antibody Screen - Imaging Impressions Knee CT 04/03/18 00:00 CONCLUSION: 1. There is a oblique distracted fracture through the distal femur involving the lateral femoral condyle. 2. There is complete dislocation of the patella laterally. 3. Small fracture involving the very top of the fibula. 4. Subcutaneous air is seen throughout the soft tissues surrounding the knee joint. Tibia/Fibula X-Ray 04/03/18 00:00 CONCLUSION: Marked improvement in previous lateral subluxation at the tarsometatarsal joints. Reduction of previous dislocation of the great toe. Displaced fracture at the third metatarsal head and neck remains. Fractures also present at the proximal metatarsals. Tibia/Fibula X-Ray 04/03/18 00:00 CONCLUSION: Fractures of the distal femur and distal tibia and fibula as above. Chest X-Ray 04/03/18 13:04 CONCLUSION: No acute intrathoracic disease. Pelvis X-Ray 04/03/18 13:04 CONCLUSION: There is some deformity involving the superior left pubic ramus suggestive of a nondisplaced fracture. No evidence of joint dislocation. Ankle X-Ray 04/03/18 13:07 CONCLUSION: Probable Lisfranc fracture. Plain films of the foot are warranted for further assessment. The distal tibia and fibula appear intact. I do not have a lateral examination to assess the talus or calcaneus. Femur X-Ray 04/03/18 13:07 CONCLUSION: The bony structures the femur is grossly intact. There is subcutaneous emphysema throughout the soft tissues. No definite joint dislocation at the hip.. There appears to be complete dislocation of the patella laterally. Tibia/Fibula X-Ray 04/03/18 13:08 CONCLUSION: Nondisplaced fractures involving the distal fibula and medial malleolus of the tibia. Abdomen/Pelvis CT 04/03/18 13:09 CONCLUSION: 1. Nondisplaced fracture through the left superior pubic ramus. 2. No acute intra-abdominal or pelvic pathology. Chest CT 04/03/18 13:09 CONCLUSION: 1. 5 mm calcified granuloma in the right upper lung. 2. No acute intrathoracic disease. Foot X-Ray 04/03/18 13:31 CONCLUSION: Lisfranc type fracture dislocation across the tarsometatarsal joints with lateral subluxation at every joint. Dislocation at the first MTP as well. Assessment and Plan - Assessment and Plan 1) Right foot first metatarsal phalangeal joint dislocation 2) right foot first, second, third, fourth, and fifth tarsometatarsal joint dislocations 3) right ankle fibula fracture 4) Open left distal femur fracture 5) open left proximal tibia fracture 6) Left ankle bimalleolar fracture 7) Open left knee joint 8) Degloving injury left leg 9) Pubic rami fractures patient has very complex injuries and will require multiple surgeries. maintain vac plan for repeat I&D later this week with Pasquale
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
[2018-04-04] MEDS: Senna/Docusate Sodium 8.6/50 MG Tablet PO SCH ×2 (09:16→21:48)
[2018-04-04] MEDS: Folic Acid 1 MG Tablet PO SCH (09:16)
[2018-04-04 09:30] LABS: Baso % (Auto) 0.2 % (0.0-2.0); Lymph # (Auto) 1.7 th/mm3 (1.0-4.8); Lymph % (Auto) 19.7 % (9.0-44.0); Mean Corpuscular HGB Conc 33.3 % (32.0-36.0); Mean Corpuscular Hemoglobin 29.8 pg (27.0-34.0); Mean Corpuscular Volume 89.7 fL (80.0-100.0); Mean Platelet Volume 8.4 fL (7.0-11.0); Mono # (Auto) 0.8 th/mm3 (0.0-0.9); Mono % (Auto) 9.2 % (0.0-8.0); Neut # (Auto) 6.2 th/mm3 (1.8-7.7); Neut % (Auto) 70.9 % (16.0-70.0); Platelet Count 137 th/mm3 (150-450); Red Blood Count 2.68 mil/mm3 (4.50-5.90); Red Cell Distribution Width 15.8 % (11.6-17.2); White Blood Count 8.8 th/mm3 (4.0-11.0)
[2018-04-04 10:16] LABS: Albumin 2.8 g/dL (3.4-5.0); Carbon Dioxide 22.9 meq/L (21.0-32.0); Potassium 5.3 meq/L (3.5-5.1); Total Protein 5.6 g/dL (6.4-8.2)
[2018-04-04 11:38] LABS: Bacteria,Urine Rare /hpf; Bilirubin,Urine Negative (Negative); Clarity,Urine Hazy (Clear); Color,Urine Yellow (Yellw/Straw); Glucose,Urine (UA) Negative (Negative); Leukocyte Esterase,Urine Small (Negative); Nitrite,Urine Negative (Negative); Specific Gravity,Urine 1.026 (1.002-1.035)
[2018-04-04 11:42] LABS: Amphetamine Screen,Urine Neg (Neg); Barbiturate Screen,Urine Neg (Neg); Cannabinoid Screen,Urine Neg (Neg); Cocaine Screen,Urine Neg (Neg)
[2018-04-04 11:53] LABS: Opiate Screen,Urine Pos (Neg)
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
[2018-04-04] MEDS ORDERED: Sod Chloride 0.9% Inj 1,000 ML IV.SIG SCH (13:45)
[2018-04-04] MEDS: Sod Chloride 0.9% Inj 1,000 ML IV.CONT SCH ×2 (13:51→21:49)
[2018-04-04] MEDS ORDERED: Sodium Chlor 0.9% Inj 250 ML IV.SIG SCH (14:00)
[2018-04-04] MEDS ORDERED: Enoxaparin Inj 40 MG/0.4 ML Syringe SQ SCH (15:15)
[2018-04-04] MEDS: Pantoprazole Inj 40 MG Vial IV.PUSH SCH (16:37)
[2018-04-04 16:52] LABS: Creatine Kinase MB 44.6 ng/mL (0.5-3.6)
[2018-04-05 04:03] LABS: Baso % (Auto) 0.5 % (0.0-2.0); Hematocrit 23.3 % (39.0-51.0); Hemoglobin 7.8 gm/dL (13.0-17.0); Lymph # (Auto) 1.6 th/mm3 (1.0-4.8); Lymph % (Auto) 19.7 % (9.0-44.0); Mean Corpuscular HGB Conc 33.7 % (32.0-36.0); Mean Corpuscular Hemoglobin 29.9 pg (27.0-34.0); Mean Platelet Volume 8.1 fL (7.0-11.0); Mono # (Auto) 0.6 th/mm3 (0.0-0.9); Neut # (Auto) 5.7 th/mm3 (1.8-7.7); Neut % (Auto) 71.8 % (16.0-70.0); Platelet Count 117 th/mm3 (150-450); Red Blood Count 2.62 mil/mm3 (4.50-5.90); Red Cell Distribution Width 15.6 % (11.6-17.2)
[2018-04-05] MEDS ORDERED: Chlorhexidine Gluconate 2% 1 Pack (2 Cloths) TOPICAL ONE (04:07)
[2018-04-05] MEDS ORDERED: Metoprolol Tartrate 25 MG Tablet PO ONE (04:07)
[2018-04-05 04:26] LABS: Calcium 7.3 mg/dL (8.5-10.1); Carbon Dioxide 25.6 meq/L (21.0-32.0); Potassium 4.5 meq/L (3.5-5.1)
[2018-04-05 04:38] LABS: Total Protein 5.7 g/dL (6.4-8.2)
[2018-04-05] MEDS ORDERED: Sodium Chlor 0.9% Inj 500 ML IV.SIG SCH (05:00)
[2018-04-05] MEDS: HYDROmorphone PCA Inj 6 MG/30 ML PCA.VIAL PCA PRN ×2 (06:00→13:33)
[2018-04-05] MEDS: ceFAZolin Inj 2,000 MG in Sodium Chlor 0.9% Inj 80 ML IV.SIG SCH ×2 (06:45→14:22)
[2018-04-05] MEDS: Sod Chloride 0.9% Inj 1,000 ML IV.CONT SCH ×2 (06:46→15:46)
[2018-04-05] MEDS: Gentamicin/NS 80 mg Premix 100 ML IV.SIG SCH ×3 (06:47→17:44)
[2018-04-05] MEDS ORDERED: ceFAZolin 2 GM Premix Inj 2 GM/50 ML PIGGYBACK IV.SIG ONE (07:08)
[2018-04-05] MEDS ORDERED: Lidocaine PF 1% Inj 5 ML Syringe OTHER ONE (09:00)
[2018-04-05] MEDS: Enoxaparin Inj 30 MG/0.3 ML Syringe SQ SCH ×2 (09:39→20:32)
[2018-04-05] MEDS: Folic Acid 1 MG Tablet PO SCH (09:39)
[2018-04-05] MEDS: Senna/Docusate Sodium 8.6/50 MG Tablet PO SCH ×2 (09:40→20:33)
[2018-04-05] MEDS ORDERED: Post-op Orders (for Pharmacy) OTHER STA (10:03)
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
[2018-04-05] MEDS ORDERED: Morphine Inj 4 MG/ML Vial ONE (11:01)
[2018-04-05] MEDS ORDERED: fentaNYL Citrate Inj 100 MCG/2 ML Ampul ONE ×2 (11:01)
[2018-04-05] MEDS ORDERED: *Meperidine Inj 25 MG/ML Vial PERIprocedural Use ONLY ONE (11:11)
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
[2018-04-05 13:30] LABS: Hematocrit 20.3 % (39.0-51.0); Hemoglobin 6.9 gm/dL (13.0-17.0)
[2018-04-05] MEDS ORDERED: Sodium Chlor 0.9% Inj 250 ML IV.SIG SCH (15:00)
--- NOTE | 2018-04-05 15:07 | OTSOAPIP ---
PATIENT IS OFF FLOOR FOR SURGERY. WILL REATTEMPT EVALUATION TOMORROW. Therapist: ELSA BURNETTE, OTR/L Signature on file
--- NOTE | 2018-04-05 16:08 | XR ---
EXAM DATE: 04/05/2018 12:00 AM EDT AGE/SEX: 57 years / Male INDICATIONS: ORIF left ankle fracture. CLINICAL DATA: This is the patient's subsequent encounter. Patient reports that signs and symptoms h ave been present for 2 days and indicates a pain score of Nonresponsive. MEDICAL/SURGICAL HISTORY: Non-responsive. Non-responsive. [place] [facility] [place]. . FINDINGS: There is plate and screw fixation of the lateral malleolus and lack screw fixation of the medial mall eolus. Normal alignment. CONCLUSION: Fixation left ankle as above. Electronically signed by: Chaim Hanna MD 04/05/2018 4:07 PM EDT
[2018-04-05] MEDS: ceFAZolin 2 GM Premix Inj 2 GM/100 ML BAG IV.SIG SCH (18:11)
[2018-04-05] MEDS: Pantoprazole Inj 40 MG Vial IV.PUSH SCH (18:11)
--- NOTE | 2018-04-05 21:15 | CT ---
EXAM DATE: 04/05/2018 3:13 PM EDT AGE/SEX: 57 years / Male INDICATIONS: Fracture. CLINICAL DATA: This is the patient's initial encounter. Patient reports that signs and symptoms have been present for 1 day and indicates a pain score of 8/10. MEDICAL/SURGICAL HISTORY: None. None. RADIATION DOSE: 7.29 CTDI (mGy) COMPARISON: [facility] – [place] FOOT LIMITED RIGHT 2V, 04/03/2018. . TECHNIQUE: Multiple contiguous axial images were acquired using a multirow detector CT scanner witho ut contrast. Multiplanar reconstruction was performed in the sagittal and coronal planes. Using auto mated exposure control and adjustment of the mA and/or kV according to patient size, radiation dose w as kept as low as reasonably achievable to obtain optimal diagnostic quality images. DICOM format im age data is available electronically for review and comparison. FINDINGS: First digit: Longitudinal fracture through the proximal metaphysis and diametaphysis of the metatarsu s with moderate displacement. Second digit: Dorsal dislocation of the metatarsus and comminuted fracture at the metatarsal tarsal j unction. Third digit: Distal metaphyseal displaced fracture of the metatarsus. The shaft of the metatarsals is dislocated laterally to the phalanges. Fourth digit: Mildly comminuted fracture of the proximal metatarsus and adjacent multangular bone. Fifth digit: Metatarsal bone is intact. Midfoot: There is a comminuted fracture of the lateral aspect of the cuboid bone. Other: Oblique nondisplaced fracture of the distal fibula.. CONCLUSION: 1. Multiple fractures and dislocations. Electronically signed by: Marco Antonio Melara MD 04/05/2018 9:14 PM EDT
[2018-04-05] MEDS: Acetaminophen 325 MG Tablet PO PRN (23:14)
[2018-04-06] MEDS: Gentamicin/NS 80 mg Premix 100 ML IV.SIG SCH ×3 (05:11→19:36)
[2018-04-06] MEDS: Sod Chloride 0.9% Inj 1,000 ML IV.CONT SCH ×3 (05:12→16:58)
[2018-04-06] MEDS: ceFAZolin 2 GM Premix Inj 2 GM/100 ML BAG IV.SIG SCH ×3 (05:12→18:30)
[2018-04-06] MEDS: Chlorhexidine Gluconate 2% 1 Pack (2 Cloths) TOPICAL SCH (05:13)
[2018-04-06] MEDS: Acetaminophen 325 MG Tablet PO PRN ×3 (05:13→23:38)
[2018-04-06] MEDS: Folic Acid 1 MG Tablet PO SCH ×2 (07:57→08:07)
[2018-04-06] MEDS: Senna/Docusate Sodium 8.6/50 MG Tablet PO SCH ×3 (07:58→21:10)
[2018-04-06] MEDS: Enoxaparin Inj 30 MG/0.3 ML Syringe SQ SCH ×3 (07:58→21:10)
[2018-04-06] MEDS: Gabapentin 300 MG Capsule PO SCH ×3 (08:14→18:00)
[2018-04-06] MEDS: Methocarbamol 500 MG Tablet PO SCH ×3 (08:14→21:10)
[2018-04-06] MEDS ORDERED: Enoxaparin Inj 30 MG/0.3 ML Syringe SQ SCH (10:00)
[2018-04-06 10:26] LABS: Baso % (Auto) 0.5 % (0.0-2.0); Eos # (Auto) 0.1 th/mm3 (0.0-0.4); Eos % (Auto) 0.9 % (0.0-4.0); Hematocrit 24.7 % (39.0-51.0); Hemoglobin 8.3 gm/dL (13.0-17.0); Mean Corpuscular HGB Conc 33.6 % (32.0-36.0); Mean Corpuscular Hemoglobin 29.8 pg (27.0-34.0); Mean Corpuscular Volume 88.7 fL (80.0-100.0); Mean Platelet Volume 7.8 fL (7.0-11.0); Mono # (Auto) 0.9 th/mm3 (0.0-0.9); Mono % (Auto) 11.5 % (0.0-8.0); Neut # (Auto) 5.8 th/mm3 (1.8-7.7); Neut % (Auto) 74.1 % (16.0-70.0); Platelet Count 119 th/mm3 (150-450); Red Blood Count 2.78 mil/mm3 (4.50-5.90); Red Cell Distribution Width 16.4 % (11.6-17.2); White Blood Count 7.8 th/mm3 (4.0-11.0)
[2018-04-06 10:47] LABS: Calcium 7.1 mg/dL (8.5-10.1); Carbon Dioxide 26.2 meq/L (21.0-32.0); Potassium 4.2 meq/L (3.5-5.1)
[2018-04-06] MEDS ORDERED: HYDROmorphone PCA Inj 6 MG/30 ML PCA.VIAL PCA PRN (10:58)
[2018-04-06 11:11] LABS: Total Protein 5.6 g/dL (6.4-8.2)
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
[2018-04-06 11:16] LABS: CKMB Percent 0.1 % (0.0-4.0); Creatine Kinase MB 3.2 ng/mL (0.5-3.6)
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
[2018-04-07] MEDS: Gentamicin/NS 80 mg Premix 100 ML IV.SIG SCH ×3 (01:54→17:25)
[2018-04-07] MEDS: ceFAZolin 2 GM Premix Inj 2 GM/100 ML BAG IV.SIG SCH ×3 (03:44→18:16)
[2018-04-07] MEDS: Sod Chloride 0.9% Inj 1,000 ML IV.CONT SCH ×2 (03:45→15:19)
[2018-04-07] MEDS: Methocarbamol 500 MG Tablet PO SCH ×3 (05:39→21:04)
[2018-04-07 06:08] LABS: Baso # (Auto) 0.1 th/mm3 (0.0-0.2); Baso % (Auto) 0.9 % (0.0-2.0); Eos # (Auto) 0.1 th/mm3 (0.0-0.4); Eos % (Auto) 1.4 % (0.0-4.0); Hematocrit 22.6 % (39.0-51.0); Hemoglobin 7.6 gm/dL (13.0-17.0); Lymph # (Auto) 1.5 th/mm3 (1.0-4.8); Lymph % (Auto) 17.2 % (9.0-44.0); Mean Corpuscular HGB Conc 33.7 % (32.0-36.0); Mean Corpuscular Hemoglobin 29.7 pg (27.0-34.0); Mean Platelet Volume 7.8 fL (7.0-11.0); Mono # (Auto) 1.1 th/mm3 (0.0-0.9); Mono % (Auto) 12.7 % (0.0-8.0); Neut # (Auto) 5.7 th/mm3 (1.8-7.7); Neut % (Auto) 67.8 % (16.0-70.0); Platelet Count 148 th/mm3 (150-450); Red Blood Count 2.57 mil/mm3 (4.50-5.90); Red Cell Distribution Width 16.1 % (11.6-17.2); White Blood Count 8.4 th/mm3 (4.0-11.0)
[2018-04-07 06:32] LABS: Anion Gap 7 meq/L (5-15); Blood Urea Nitrogen 9 mg/dL (7-18); Calcium 7.3 mg/dL (8.5-10.1); Carbon Dioxide 29.5 meq/L (21.0-32.0); Chloride 104 meq/L (98-107); Glomerular Filtration Rate Greater Than 89 mL/min (>89); Glucose,Random 101 mg/dL (74-106); Potassium 4.1 meq/L (3.5-5.1); Sodium 140 meq/L (136-145)
[2018-04-07 06:50] LABS: Total Protein 5.5 g/dL (6.4-8.2)
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
[2018-04-07 08:26] LABS: Eosinophils 3 % (0-4); Lymphocytes 17 % (9-44); Metamyelocytes 2 % (0-1); Monocytes 10 % (0-8); Myelocytes 1 % (0-0); Platelet Morphology Normal (Normal)
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
[2018-04-07] MEDS: Senna/Docusate Sodium 8.6/50 MG Tablet PO SCH ×2 (09:18→21:04)
[2018-04-07] MEDS: Acetaminophen 325 MG Tablet PO PRN ×2 (09:18→15:09)
[2018-04-07] MEDS: Folic Acid 1 MG Tablet PO SCH (09:18)
[2018-04-07] MEDS: Enoxaparin Inj 30 MG/0.3 ML Syringe SQ SCH ×2 (09:18→21:04)
[2018-04-07] MEDS: Gabapentin 300 MG Capsule PO SCH ×3 (09:18→17:25)
--- NOTE | 2018-04-07 10:25 | XR ---
EXAM DATE: 04/07/2018 8:54 AM EDT AGE/SEX: 57 years / Male INDICATIONS: Fever. CLINICAL DATA: This is the patient's initial encounter. Patient reports that signs and symptoms have been present for 2 days and indicates a pain score of 0/10. MEDICAL/SURGICAL HISTORY: None. None. [place] [facility] [place] [facility] [place]. . FINDINGS: Portable AP view of the chest demonstrates a normal-sized cardiac silhouette. Lungs are underinflated with mild bibasilar opacity. No pleural effusion or pneumothorax is identified. Bones and soft tissu es demonstrate no acute abnormality. CONCLUSION: Mildly underinflated examination with bibasilar opacity representing either atelectasis or airspace c onsolidation. Electronically signed by: Travis Noriega MD 04/07/2018 10:24 AM EDT
[2018-04-08] MEDS: Acetaminophen 325 MG Tablet PO PRN (00:52)
[2018-04-08] MEDS: HYDROmorphone PF Inj 2 MG/ML Vial IV.PUSH PRN ×4 (00:59→21:25)
[2018-04-08] MEDS: Gentamicin/NS 80 mg Premix 100 ML IV.SIG SCH ×3 (01:02→17:12)
[2018-04-08] MEDS: ceFAZolin 2 GM Premix Inj 2 GM/100 ML BAG IV.SIG SCH ×3 (02:15→18:37)
[2018-04-08 05:04] LABS: Baso # (Auto) 0.1 th/mm3 (0.0-0.2); Baso % (Auto) 0.6 % (0.0-2.0); Eos # (Auto) 0.4 th/mm3 (0.0-0.4); Hematocrit 23.4 % (39.0-51.0); Hemoglobin 8.1 gm/dL (13.0-17.0); Lymph # (Auto) 1.5 th/mm3 (1.0-4.8); Lymph % (Auto) 17.7 % (9.0-44.0); Mean Corpuscular HGB Conc 34.4 % (32.0-36.0); Mean Corpuscular Hemoglobin 29.9 pg (27.0-34.0); Mean Corpuscular Volume 86.7 fL (80.0-100.0); Mean Platelet Volume 7.3 fL (7.0-11.0); Mono # (Auto) 1.2 th/mm3 (0.0-0.9); Mono % (Auto) 13.2 % (0.0-8.0); Neut # (Auto) 5.6 th/mm3 (1.8-7.7); Neut % (Auto) 64.5 % (16.0-70.0); Platelet Count 178 th/mm3 (150-450); Red Blood Count 2.69 mil/mm3 (4.50-5.90); Red Cell Distribution Width 15.8 % (11.6-17.2); White Blood Count 8.8 th/mm3 (4.0-11.0)
[2018-04-08 05:42] LABS: Anion Gap 9 meq/L (5-15); Blood Urea Nitrogen 6 mg/dL (7-18); Calcium 7.1 mg/dL (8.5-10.1); Chloride 101 meq/L (98-107); Creatine Kinase 1053 U/L (39-308); Glomerular Filtration Rate Greater Than 89 mL/min (>89); Glucose,Random 98 mg/dL (74-106); Potassium 3.5 meq/L (3.5-5.1); Sodium 138 meq/L (136-145)
[2018-04-08 06:03] LABS: CKMB Percent 0.1 % (0.0-4.0)
[2018-04-08 06:04] LABS: Total Protein 5.6 g/dL (6.4-8.2)
[2018-04-08] MEDS: Sod Chloride 0.9% Inj 1,000 ML IV.CONT SCH ×2 (06:17→17:12)
[2018-04-08] MEDS: Methocarbamol 500 MG Tablet PO SCH ×3 (07:00→21:24)
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
[2018-04-08 07:50] LABS: Eosinophils 4 % (0-4); Lymphocytes 9 % (9-44); Metamyelocytes 1 % (0-1); Monocytes 10 % (0-8); Myelocytes 1 % (0-0); Platelet Estimate Normal (Normal); Platelet Morphology Normal (Normal)
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
[2018-04-08] MEDS: Gabapentin 400 MG Capsule PO SCH ×3 (08:26→18:36)
[2018-04-08] MEDS: Senna/Docusate Sodium 8.6/50 MG Tablet PO SCH ×2 (08:28→21:24)
[2018-04-08] MEDS: Folic Acid 1 MG Tablet PO SCH (08:28)
[2018-04-08] MEDS: Enoxaparin Inj 30 MG/0.3 ML Syringe SQ SCH ×2 (08:28→21:24)
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
[2018-04-09] MEDS: ceFAZolin 2 GM Premix Inj 2 GM/100 ML BAG IV.SIG SCH ×2 (03:58→11:17)
[2018-04-09] MEDS: HYDROmorphone PF Inj 2 MG/ML Vial IV.PUSH PRN ×5 (03:59→23:37)
[2018-04-09] MEDS: Sod Chloride 0.9% Inj 1,000 ML IV.CONT SCH ×2 (06:41→18:24)
[2018-04-09] MEDS: Methocarbamol 500 MG Tablet PO SCH ×2 (06:41→13:20)
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
[2018-04-09] MEDS: Senna/Docusate Sodium 8.6/50 MG Tablet PO SCH ×2 (08:21→20:42)
[2018-04-09] MEDS: Gabapentin 400 MG Capsule PO SCH ×3 (08:21→18:24)
[2018-04-09] MEDS: Folic Acid 1 MG Tablet PO SCH (08:21)
[2018-04-09] MEDS: Enoxaparin Inj 30 MG/0.3 ML Syringe SQ SCH ×2 (09:26→20:42)
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
[2018-04-09] MEDS: Acetaminophen 325 MG Tablet PO PRN ×2 (16:38→23:36)
[2018-04-10] MEDS ORDERED: Chlorhexidine Gluconate 2% 1 Pack (2 Cloths) TOPICAL ONE (03:56)
[2018-04-10] MEDS ORDERED: Sodium Chlor 0.9% Inj 500 ML IV.SIG SCH (04:00)
[2018-04-10] MEDS: HYDROmorphone PF Inj 2 MG/ML Vial IV.PUSH PRN ×2 (05:23→14:56)
--- NOTE | 2018-04-10 06:32 | P.PNOP ---
Subjective Interval history: Resting comfortably with no new complaints Physical Exam Vital signs: Vital Signs 04/09/18 08:00 04/09/18 12:00 04/09/18 16:00 Temperature 99.1 F 99.5 F 99.6 F Pulse Rate 98 H 99 H 109 H Respiratory Rate 16 16 16 Blood Pressure 129/72 146/78 H 142/67 H Pulse Oximetry 98 99 98 04/09/18 18:53 04/09/18 20:00 04/09/18 21:45 Temperature 99.8 F H Pulse Rate 98 H Respiratory Rate 17 19 17 Blood Pressure 132/73 Pulse Oximetry 96 04/10/18 00:00 04/10/18 02:11 04/10/18 02:41 Temperature 101.7 F H 100.0 F H Pulse Rate 104 H Respiratory Rate 19 17 Blood Pressure 136/79 Pulse Oximetry 93 L Intake & Output 04/09/18 04/09/18 04/10/18 06:59 18:59 06:59 Intake Total 950 / 950 700 / 700 Output Total 450 / 450 500 / 500 Balance 500 / 500 700 / 700 -500 / -500 Weight 111.5 kg Intake: IV 500 / 500 100 / 100 Ofirmev Inj 1,000 mg In 100 ml 200 / 200 @ 400 mls/hr IV.SIG Q6H DEEPA Rx# :[id number] Ancef 2 GM Premix Inj 2 gm In 200 / 200 100 / 100 100 ml @ 200 mls/hr IV.SIG Q8H DEEPA Rx#:[id number] Oral 450 / 450 600 / 600 Output: Urine 450 / 450 Wound Vac Amount 500 / 500 Left Leg 500 / 500 Other: Mode Setting Left Leg Continuous Continuous # Voids 3 4 Date of Last Bowel Movement 04/08/18 04/09/18 Narrative: Right lower extremity: No pain with hip or knee range of motion. Examination of the foot reveals splint is in good condition. Portion of the splint is taken down and swelling is continuing to improve over the foot. He has intact sensation all toes with good capillary refills Left lower extremity: No pain with hip range of motion. Examination reveals wound VAC is in good condition and good seal. External fixator in place. Intact sensation all toes. Is able to move toes appropriately - Urinary Catheter Management Indwelling Urethral Catheter Cath placed during this visit: yes, but has since been removed by the nurse Reason for continuing: Acute urinary retention Insertion date: 04/03/18 Insertion time: 14:10 Removal date: 04/07/18 Removal time: 09:30 Results - Labs CBC & Chem 7: 04/08/18 03:25 04/08/18 03:25 Microbiology 04/07/18 09:25 Blood - Other Aerobic Blood Culture - Preliminary No growth in 2 days 04/07/18 09:25 Blood - Other Anaerobic Blood Culture - Preliminary No growth in 2 days 04/07/18 09:30 Blood - Other Aerobic Blood Culture - Preliminary No growth in 2 days 04/07/18 09:30 Blood - Other Anaerobic Blood Culture - Preliminary No growth in 2 days 04/07/18 11:55 Random Urine Urine Culture - Final No growth in 48 hours Assessment and Plan - Assessment and Plan Right foot first metatarsal phalangeal joint dislocation, right foot first, second, third, fourth, and fifth tarsometatarsal joint dislocations and right ankle fibula fracture Open left distal femur and proximal tibia fracture with open knee joint with meniscus injury. Degloving injury left leg. 2 I&D's and wound vacs, POD # 4 Left ankle bimalleolar fracture with open reduction internal fixation on 2017 Pubic rami fractures -nonoperative Right hand minimally displaced fracture of the fifth digit proximal phalanx patient has very complex injuries and will require multiple surgeries. maintain vac and continue with veriflow plan for repeat I&D today with Pasquale with wound VAC change. Patient will require muscle rotational flap and will proceed if the leg is healthy. We will also plan later this week for surgery to the right foot with its multiple injuries. At this time it will continue to maintain itself in a splint and elevate to decrease swelling. It is too swollen at this point for any invasive procedures Hold Lovenox Incentive spirometry N.p.o. after midnight
[2018-04-10 06:33] LABS: Baso # (Auto) 0.1 th/mm3 (0.0-0.2); Baso % (Auto) 0.6 % (0.0-2.0); Eos # (Auto) 0.4 th/mm3 (0.0-0.4); Eos % (Auto) 3.9 % (0.0-4.0); Hematocrit 26.4 % (39.0-51.0); Hemoglobin 8.8 gm/dL (13.0-17.0); Lymph # (Auto) 1.9 th/mm3 (1.0-4.8); Lymph % (Auto) 18.5 % (9.0-44.0); Mean Corpuscular HGB Conc 33.2 % (32.0-36.0); Mean Corpuscular Hemoglobin 29.1 pg (27.0-34.0); Mean Corpuscular Volume 87.5 fL (80.0-100.0); Mean Platelet Volume 7.6 fL (7.0-11.0); Mono # (Auto) 1.3 th/mm3 (0.0-0.9); Mono % (Auto) 12.9 % (0.0-8.0); Neut # (Auto) 6.5 th/mm3 (1.8-7.7); Neut % (Auto) 64.1 % (16.0-70.0); Platelet Count 259 th/mm3 (150-450); Red Blood Count 3.02 mil/mm3 (4.50-5.90); Red Cell Distribution Width 16.2 % (11.6-17.2); White Blood Count 10.1 th/mm3 (4.0-11.0)
[2018-04-10 07:02] LABS: Alanine Aminotransferase 33 U/L (12-78); Albumin 1.8 g/dL (3.4-5.0); Alkaline Phosphatase 105 U/L (45-117); Anion Gap 8 meq/L (5-15); Aspartate Aminotransferase 74 U/L (15-37); Blood Urea Nitrogen 12 mg/dL (7-18); Calcium 8.6 mg/dL (8.5-10.1); Carbon Dioxide 29.3 meq/L (21.0-32.0); Chloride 99 meq/L (98-107); Glomerular Filtration Rate Greater Than 89 mL/min (>89); Glucose,Random 91 mg/dL (74-106); Potassium 4.7 meq/L (3.5-5.1); Sodium 136 meq/L (136-145); Total Protein 6.3 g/dL (6.4-8.2)
[2018-04-10 07:24] LABS: Eosinophils 1 % (0-4); Lymphocytes 21 % (9-44); Monocytes 12 % (0-8); Promyelocyte 1 % (0-0); Tallied Nucleated RBC 2 (0-0)
[2018-04-10 07:25] LABS: Platelet Estimate Normal (Normal); Platelet Morphology Clumped (Normal)
[2018-04-10] MEDS: Folic Acid 1 MG Tablet PO SCH (08:11)
[2018-04-10] MEDS: Enoxaparin Inj 30 MG/0.3 ML Syringe SQ SCH (08:12)
[2018-04-10] MEDS: Gabapentin 400 MG Capsule PO SCH ×3 (08:13→17:20)
[2018-04-10] MEDS: Senna/Docusate Sodium 8.6/50 MG Tablet PO SCH ×2 (08:14→20:55)
[2018-04-10] MEDS ORDERED: ceFAZolin 2 GM Premix Inj 2 GM/50 ML PIGGYBACK IV.SIG ONE (09:27)
[2018-04-10] MEDS ORDERED: Lidocaine PF 1% Inj 5 ML Syringe OTHER ONE (10:00)
[2018-04-10] MEDS ORDERED: Post-op Orders (for Pharmacy) OTHER STA (11:02)
--- NOTE | 2018-04-10 11:14 | P.OP ---
- Preoperative Diagnosis (1) Open fracture of left distal femur, type III, with routine healing Date of procedure: 04/10/18 Procedure: Irrigation and debridement of open tibia and fibula fractures,Open reduction internal fixation left distal femur lateral condyle fracture, rotational muscle flap left medial gastroc muscle Anesthesia: LAILA Surgeon: Ceferino Moore MD Mending Carrier: SCOTT Schuler PA-C The surgical procedure was assisted by my physician physician's assistant. My P.A. presence was necessary throughout this case for the manipulation and positioning of the surgical extremity. My P.A. was assisting me throughout the duration of this procedure. The skill set of a physician physician's assistant was medically necessary to complete this procedure. During the surgical case the instructor adjunct surgical technician was working at the back table and the physician physician's assistant was directly assisting me. Operation and Findings: Juan returns operating today for scheduled surgery. Informed consent was confirmed and OpSite was marked. He is brought operating. Is given IV sedation and general anesthesia. Timeout procedure was performed. The external fixator was now partially removed. The clamps and bars were removed. The pins were left in place. Left leg was prepped with alcohol followed Hibiclens and draped in usual sterile fashion. Procedure began with irrigation debridement open fractures. The distal femur and proximal tibia fractures were exposed. Curettes were used to debride bone. An excisional debridement was performed. A portion of skin and fascia were excised sharply. Soft tissue and bone were now thoroughly irrigated with pulsatile lavage. Overall the wound appeared to be clean and healthy. Next attention was turned to the lateral femoral condyle. A 3 inch incision was made over the lateral aspect of the distal femur. Subcutaneous tissue was dissected Bovie. Iliotibial band was split in line with fibers. The fracture was visualized. The fracture was manipulated. Fracture site was cleaned with curettes. Fracture was mobilized and then reduced. Fracture tenaculum was used to reduce and compress fracture fragment. Multiplanar fluoroscopy confirmed excellent fracture. At this three 3.5 mm cortical lag screws were placed from anterior to posterior. Good compression was obtained. Fracture tenaculum was removed. Fluoroscopy confirmed excellent fracture. Incision was thoroughly irrigated. Fascia was closed with 0 PDS, subcutaneous tissues closed with 3-0 PDS, skin was closed with sunny. Next attention was turned towards the gastroc muscle flap. The medial gastroc muscle was visualized. The muscle belly was dissected out. Care was taken to avoid the vascular sedation of the muscle. The distal portion of the muscle was from the soleus. The muscle flap was now mobilized. A Bovie was used to incise the fascia and tendon distally. The muscle belly was carefully mobilized. The proximal muscle was left intact to avoid the vascular sedation. The muscle belly was now rotated around the medial aspect of the knee. The distal femur and proximal tibia fractures were completely covered. The muscle belly was now sutured in place using #1 PDS. The edges of the muscle were tacked down with 3-0 PDS. At this point a large VAC dressing was placed over the wound. VAC dressing was sealed carefully. The external fixator was now placed to help protect the distal femur fracture. Patient was awakened and transferred to recovery in stable condition. Needle sponge counts were correct.
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
[2018-04-10] MEDS ORDERED: fentaNYL Citrate Inj 100 MCG/2 ML Ampul ONE ×2 (12:09)
[2018-04-10] MEDS ORDERED: *morphine SULFATE 10 MG/ML PERIprocedure ONLY ONE ×2 (12:24→12:36)
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
[2018-04-10] MEDS ORDERED: Vancomycin Inj 1,500 MG in Sodium Chlor 0.9% Inj 500 ML IV.SIG ONE (15:12)
[2018-04-10] MEDS ORDERED: Vancomycin Consult Pharmacy OTHER PRN (15:13)
--- NOTE | 2018-04-10 15:30 | XR ---
EXAM DATE: 04/10/2018 12:00 AM EDT AGE/SEX: 57 years / Male INDICATIONS: ORIF left femur fracture. CLINICAL DATA: This is the patient's subsequent encounter. Patient reports that signs and symptoms h ave been present for 1 week and indicates a pain score of Nonresponsive. MEDICAL/SURGICAL HISTORY: Non-responsive. Non-responsive. COMPARISON: [facility] [place] LEFT 2V, 04/03/2018. . FINDINGS: Multiple coned-down views of the left knee were obtained intraoperatively using a matrix camera. This demonstrates interval placement of 3 lag-type screws into the distal lateral femoral condyle fixing the fracture which is now in anatomic alignment. Patella is intact. CONCLUSION: Status post open rigid internal fixation. Electronically signed by: Mahamed Gomez MD 04/10/2018 3:29 PM EDT
[2018-04-10] MEDS: Ketorolac Inj 30 MG/ML (IVP) Vial IV.PUSH SCH ×2 (15:39→22:43)
[2018-04-10] MEDS: Sod Chloride 0.9% Inj 1,000 ML IV.CONT SCH (15:39)
[2018-04-10] MEDS: Piperacil/Tazo 4.5 GM Premix 4.5 GM/100 ML BAG IV.SIG SCH ×2 (16:40→22:44)
--- NOTE | 2018-04-10 17:18 | ECG ---
Date Performed: 04/10/2018 Time Performed: 08:23:01 PTAGE: 57 years EKG: SINUS TACHYCARDIA ABNORMAL RHYTHM ECG NO PREVIOUS TRACING DOCTOR: Earle Boateng Interpretating Date/Time 04/10/2018 17:14:04
[2018-04-10] MEDS: ceFAZolin 2 GM Premix Inj 2 GM/50 ML PIGGYBACK IV.SIG SCH (17:20)
[2018-04-10] MEDS: Gentamicin/NS 80 mg Premix 100 ML IV.SIG SCH (18:06)
[2018-04-10] MEDS: Vancomycin Inj 2,000 MG in Sodium Chlor 0.9% Inj 500 ML IV.SIG SCH (18:34)
[2018-04-10] MEDS: Acetaminophen 325 MG Tablet PO PRN (20:54)
[2018-04-11] MEDS: ceFAZolin 2 GM Premix Inj 2 GM/50 ML PIGGYBACK IV.SIG SCH ×3 (01:19→17:08)
[2018-04-11] MEDS: Gentamicin/NS 80 mg Premix 100 ML IV.SIG SCH ×3 (03:05→18:05)
[2018-04-11] MEDS: Piperacil/Tazo 4.5 GM Premix 4.5 GM/100 ML BAG IV.SIG SCH ×3 (04:48→16:03)
[2018-04-11] MEDS: Vancomycin Inj 2,000 MG in Sodium Chlor 0.9% Inj 500 ML IV.SIG SCH (05:53)
[2018-04-11] MEDS: Ketorolac Inj 30 MG/ML (IVP) Vial IV.PUSH SCH ×2 (06:00→16:03)
[2018-04-11] MEDS: HYDROmorphone PF Inj 2 MG/ML Vial IV.PUSH PRN ×2 (06:10→06:40)
--- NOTE | 2018-04-11 06:22 | P.PNOP ---
Subjective Interval history: POD 1 s/p ORIF left distal lateral femur POD 1 s/p soleus muscle flap left leg POD 6 s/p ORIF left ankle s/p right foot fracture/dislocation s/p right hand fx s/p left open leg wound doing well. pain controlled. no complaints. Physical Exam Vital signs: Vital Signs 04/10/18 08:00 04/10/18 11:58 04/10/18 12:00 Temperature 100.6 F H 100.2 F H 100.3 F H Pulse Rate 99 H 114 H 114 H Respiratory Rate 14 14 14 Blood Pressure 138/78 188/90 H 151/74 H Pulse Oximetry 97 100 04/10/18 12:15 04/10/18 12:30 04/10/18 12:45 Temperature 100.3 F H 100.3 F H 100.3 F H Pulse Rate 111 H 109 H 106 H Respiratory Rate 14 14 14 Blood Pressure 146/82 H 148/74 H 140/78 Pulse Oximetry 100 100 100 04/10/18 13:20 04/10/18 15:26 04/10/18 16:00 Temperature 99.4 F 100.4 F H Pulse Rate 110 H 112 H Respiratory Rate 18 14 18 Blood Pressure 137/80 112/70 Pulse Oximetry 95 96 04/10/18 20:00 04/10/18 20:52 04/10/18 22:42 Temperature 101.3 F H 103.0 F H 102.3 F H Pulse Rate 113 H Respiratory Rate 18 Blood Pressure 154/79 H Pulse Oximetry 98 04/11/18 00:00 04/11/18 01:53 04/11/18 04:00 Temperature 100.3 F H 100.6 F H Pulse Rate 117 H 113 H Respiratory Rate 18 19 18 Blood Pressure 110/56 L 143/82 H Pulse Oximetry 99 98 Intake & Output 04/10/18 04/10/18 04/11/18 06:59 18:59 06:59 Intake Total 1730 / 1730 620 / 620 Output Total 500 / 500 145 / 145 Balance -500 / -500 1585 / 1585 620 / 620 Intake: IV 1250 / 1250 620 / 620 Gentamicin/NS 80 mg Premix 100 100 / 100 ML @ 200 mls/hr IV.SIG Q8H DEEPA Rx#:[id number] LR 1000 mL Inj 1,000 ML @ 30 1000 / 1000 mls/hr IV.SIG .Q24H DEEPA Rx#: [id number] Zosyn 4.5 GM Premix 4.5 gm In 100 / 100 100 / 100 100 ml @ 200 mls/hr IV.SIG Q6H DEEPA Rx#:[id number] Vancomycin Inj 2,000 MG In NS 520 / 520 Inj 500 ML @ 250 mls/hr IV.SIG Q12H DEEPA Rx#:[id number] Ancef 2 GM Premix Inj 2 gm In 50 / 50 50 ml @ 100 mls/hr IV.SIG Q8H DEEPA Rx#:[id number] Oral 480 / 480 Output: Estimated Blood Loss 75 / 75 Wound Drainage 70 / 70 Left Foot 70 / 70 Wound Vac Amount 500 / 500 Left Leg 500 / 500 Other: Mode Setting Left Leg Continuous Continuous # Voids 5 Date of Last Bowel Movement 04/09/18 04/09/18 Narrative: LLE: +vac dressings. intact. good seal. +exfix. nvi. RLE: +splint. intact. NVI - Urinary Catheter Management Indwelling Urethral Catheter Cath placed during this visit: yes, but has since been removed by the nurse Reason for continuing: Acute urinary retention Insertion date: 04/03/18 Insertion time: 14:10 Removal date: 04/07/18 Removal time: 09:30 Results - Labs CBC & Chem 7: 04/10/18 03:51 04/11/18 03:54 Laboratory Results - last 24 hr 04/06/18 04/10/18 04/10/18 10:04 03:51 03:51 WBC 10.1 RBC 3.02 L Hgb 8.8 L Hct 26.4 L MCV 87.5 MCH 29.1 MCHC 33.2 RDW 16.2 Plt Count 259 D MPV 7.6 Prelim Diff (Auto) Slide review pending Neut % (Auto) 64.1 Lymph % (Auto) 18.5 [place] % (Auto) 12.9 H Eos % (Auto) 3.9 Baso % (Auto) 0.6 Neut # (Auto) 6.5 Lymph # (Auto) 1.9 [place] # (Auto) 1.3 H Eos # (Auto) 0.4 Baso # (Auto) 0.1 WBC Differential Manual diff final Seg Neuts % (Manual) 64 Band Neuts % (Manual) 1 Lymphocytes % (Manual) 21 Monocytes % (Manual) 12 H Eosinophils % (Manual) 1 Promyelocytes % (Man) 1 H Abs Neuts (Manual) 6.7 Nucleated RBCs/100 WBC 2 H Differential Comment . Platelet Estimate Normal Platelet Morphology Clumped H Sodium 136 Potassium 4.7 Chloride 99 Carbon Dioxide 29.3 Anion Gap 8 BUN 12 Creatinine 0.89 Estimated GFR Greater than 89 Random Glucose 91 Lactic Acid Calcium 8.6 Total Bilirubin 0.5 AST 74 H ALT 33 Alkaline Phosphatase 105 Total Protein 6.3 L D Albumin 1.8 L Vit D 1,25-Dihydroxy 50 04/10/18 04/11/18 04/11/18 21:55 00:29 03:54 WBC RBC Hgb Hct MCV MCH MCHC RDW Plt Count MPV Prelim Diff (Auto) Neut % (Auto) Lymph % (Auto) [place] % (Auto) Eos % (Auto) Baso % (Auto) Neut # (Auto) Lymph # (Auto) [place] # (Auto) Eos # (Auto) Baso # (Auto) WBC Differential Seg Neuts % (Manual) Band Neuts % (Manual) Lymphocytes % (Manual) Monocytes % (Manual) Eosinophils % (Manual) Promyelocytes % (Man) Abs Neuts (Manual) Nucleated RBCs/100 WBC Differential Comment Platelet Estimate Platelet Morphology Sodium Potassium Chloride Carbon Dioxide Anion Gap BUN Creatinine 1.22 Estimated GFR 74 L Random Glucose Lactic Acid 2.3 H 1.6 Calcium Total Bilirubin AST ALT Alkaline Phosphatase Total Protein Albumin Vit D 1,25-Dihydroxy Microbiology 04/07/18 09:25 Blood - Other Aerobic Blood Culture - Preliminary No growth in 3 days 04/07/18 09:25 Blood - Other Anaerobic Blood Culture - Preliminary No growth in 3 days 04/07/18 09:30 Blood - Other Aerobic Blood Culture - Preliminary No growth in 3 days 04/07/18 09:30 Blood - Other Anaerobic Blood Culture - Preliminary No growth in 3 days - Imaging Impressions Knee X-Ray 04/10/18 00:00 CONCLUSION: Status post open rigid internal fixation. Assessment and Plan - Assessment and Plan POD 1 s/p ORIF left distal lateral femur POD 1 s/p soleus muscle flap left leg POD 6 s/p ORIF left ankle s/p right foot fracture/dislocation s/p right hand fx s/p left open leg wound NWB BLE maintain vac at all times left leg maintain splint right foot and hand will plan for repeat I&D left leg and ORIF right foot Monday
[2018-04-11] MEDS: Sod Chloride 0.9% Inj 1,000 ML IV.CONT SCH (08:43)
[2018-04-11] MEDS: Folic Acid 1 MG Tablet PO SCH (08:55)
[2018-04-11] MEDS: Gabapentin 400 MG Capsule PO SCH ×3 (08:55→17:08)
[2018-04-11] MEDS: Senna/Docusate Sodium 8.6/50 MG Tablet PO SCH ×2 (08:56→21:02)
[2018-04-11] MEDS ORDERED: Enoxaparin Inj 30 MG/0.3 ML Syringe SQ SCH (11:00)
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
[2018-04-12] MEDS: Acetaminophen 325 MG Tablet PO PRN (00:37)
[2018-04-12] MEDS: Piperacil/Tazo 4.5 GM Premix 4.5 GM/100 ML BAG IV.SIG SCH ×5 (00:37→23:06)
[2018-04-12] MEDS: Ketorolac Inj 30 MG/ML (IVP) Vial IV.PUSH SCH ×3 (00:38→17:00)
[2018-04-12] MEDS: ceFAZolin 2 GM Premix Inj 2 GM/50 ML PIGGYBACK IV.SIG SCH ×3 (02:59→17:01)
[2018-04-12] MEDS: Gentamicin/NS 80 mg Premix 100 ML IV.SIG SCH ×2 (04:28→13:22)
[2018-04-12] MEDS ORDERED: Pharmacy Ordered Lab Info OTHER ONE (04:45)
[2018-04-12] MEDS: Sod Chloride 0.9% Inj 1,000 ML IV.CONT SCH (06:14)
--- NOTE | 2018-04-12 06:38 | P.PNOP ---
Subjective Interval history: Resting comfortably with no new complaints. Wound VAC has been operating efficiently Physical Exam Vital signs: Vital Signs 04/11/18 08:00 04/11/18 09:25 04/11/18 11:04 Temperature 98.4 F 100 F H Pulse Rate 101 H 105 H Respiratory Rate 16 18 18 Blood Pressure 114/61 139/61 Pulse Oximetry 96 95 04/11/18 13:07 04/11/18 15:56 04/11/18 16:00 Temperature 99.2 F Pulse Rate 120 H Respiratory Rate 18 18 18 Blood Pressure 85/66 L Pulse Oximetry 93 L 04/11/18 16:33 04/11/18 16:36 04/11/18 19:06 Temperature 99.6 F Pulse Rate 111 H Respiratory Rate 18 18 18 Blood Pressure 113/61 Pulse Oximetry 97 04/11/18 22:24 04/12/18 00:25 04/12/18 03:15 Temperature 102.4 F H 100 F H Pulse Rate 123 H 100 H Respiratory Rate 18 18 Blood Pressure 121/61 118/70 Pulse Oximetry 97 92 L 94 L Intake & Output 04/11/18 04/11/18 04/12/18 06:59 18:59 06:59 Intake Total 870 / 870 2019 350 / 350 Output Total 800 / 800 40 / 40 Balance 70 / 70 1979 350 / 350 Weight 107.4 kg 107.4 kg Intake: IV 870 / 870 2019 350 / 350 NS Inj 1,000 ML @ 50 mls/hr IV. 1000 / 1000 CONT .Q20H DEEPA Rx#:[id number] Gentamicin/NS 80 mg Premix 100 100 / 100 200 / 200 100 / 100 ML @ 200 mls/hr IV.SIG Q8H DEEPA Rx#:[id number] Zosyn 4.5 GM Premix 4.5 gm In 200 / 200 200 / 200 200 / 200 100 ml @ 200 mls/hr IV.SIG Q6H DEEPA Rx#:[id number] Vancomycin Inj 2,000 MG In NS 520 / 520 520 / 520 Inj 500 ML @ 250 mls/hr IV.SIG Q12H DEEPA Rx#:[id number] Ancef 2 GM Premix Inj 2 gm In 50 / 50 100 / 100 50 / 50 50 ml @ 100 mls/hr IV.SIG Q8H DEEPA Rx#:[id number] Oral 0 / 0 Output: Urine 800 / 800 Wound Vac Amount 40 / 40 Left Leg 40 / 40 Other: Mode Setting Left Leg Continuous Continuous Intermittent # Voids 2 Date of Last Bowel Movement 04/09/18 # Bowel Movements 0 Narrative: Right lower extremity: No pain with hip or knee motion or palpation. Splint intact over foot. Splint is taken down showing skin that is intact over the foot. Swelling is continued to improve he has slightly diminished sensation over the dorsum of his foot. He has intact sensation in his toes. He has active movement of his toes. Left lower extremity: No pain with hip range of motion. External fixation in place with wound VAC in place appropriate seal. Intact distal short leg splint. Intact sensation in toes with good capillary refills - Urinary Catheter Management Indwelling Urethral Catheter Cath placed during this visit: yes, but has since been removed by the nurse Reason for continuing: Acute urinary retention Insertion date: 04/03/18 Insertion time: 14:10 Removal date: 04/07/18 Removal time: 09:30 Results - Labs CBC & Chem 7: 04/10/18 03:51 04/11/18 03:54 Microbiology 04/10/18 21:20 Sputum - Expectorated Sputum Gram Stain - Final 04/10/18 21:55 Blood - Peripheral Aerobic Blood Culture - Preliminary No growth in 1 day 04/10/18 21:55 Blood - Peripheral Anaerobic Blood Culture - Preliminary No growth in 1 day 04/10/18 21:03 Blood - Peripheral Aerobic Blood Culture - Preliminary No growth in 1 day 04/10/18 21:03 Blood - Peripheral Anaerobic Blood Culture - Preliminary No growth in 1 day 04/07/18 09:25 Blood - Other Aerobic Blood Culture - Preliminary No growth in 4 days 04/07/18 09:25 Blood - Other Anaerobic Blood Culture - Preliminary No growth in 4 days 04/07/18 09:30 Blood - Other Aerobic Blood Culture - Preliminary No growth in 4 days 04/07/18 09:30 Blood - Other Anaerobic Blood Culture - Preliminary No growth in 4 days - Imaging Impressions Chest X-Ray 04/11/18 00:00 CONCLUSION: Negative for an acute process Assessment and Plan - Assessment and Plan POD 2 s/p ORIF left distal lateral femur POD 2 s/p soleus muscle flap left leg POD 7 s/p ORIF left ankle s/p right foot fracture/dislocation s/p right hand fx s/p left open leg wound NWB BLE npo maintain vac at all times left leg maintain splint right foot and hand will plan for repeat I&D left leg and ORIF right foot today
[2018-04-12] MEDS ORDERED: Bupivacaine/Epinephrine Inj 0.25% 50 ML Vial ONE (07:13)
[2018-04-12] MEDS: Gabapentin 400 MG Capsule PO SCH ×3 (08:00→17:00)
[2018-04-12] MEDS: Senna/Docusate Sodium 8.6/50 MG Tablet PO SCH ×2 (08:00→20:28)
[2018-04-12] MEDS: Folic Acid 1 MG Tablet PO SCH (08:00)
[2018-04-12] MEDS ORDERED: Chlorhexidine Gluconate 2% 1 Pack (2 Cloths) TOPICAL ONE ×2 (08:07→08:08)
[2018-04-12] MEDS ORDERED: Metoprolol Tartrate 25 MG Tablet PO ONE ×2 (08:07→08:08)
[2018-04-12 08:15] LABS: Creatine Kinase 550 U/L (39-308)
[2018-04-12 08:34] LABS: CKMB Percent 0.2 % (0.0-4.0)
[2018-04-12] MEDS ORDERED: Lidocaine PF 1% Inj 5 ML Syringe OTHER ONE (09:00)
[2018-04-12] MEDS ORDERED: Sodium Chlor 0.9% Inj 500 ML IV.SIG SCH ×2 (09:00)
[2018-04-12] MEDS ORDERED: Post-op Orders (for Pharmacy) OTHER STA (11:16)
--- NOTE | 2018-04-12 11:30 | P.OP ---
- Preoperative Diagnosis (1) Dislocation of tarsometatarsal joint of right foot (2) Open fracture of left distal femur, type III, with routine healing (3) Right fibular fracture Date of procedure: 04/12/18 Procedure: Open reduction internal fixation right foot first tarsometatarsal joint, open reduction internal fixation right foot second tarsometatarsal joint, open reduction internal fixation right foot third tarsometatarsal joint, open reduction internal fixation right foot third metatarsal fracture, reduction and pinning of right foot fourth tarsometatarsal dislocation, wound VAC dressing change left leg Anesthesia: GETA Surgeon: Ceferino Moore MD District Wildlife Manager: SCOTT Schuler PA-C The surgical procedure was assisted by my physician housekeeper and laundry assistant. My P.A. presence was necessary throughout this case for the manipulation and positioning of the surgical extremity. My P.A. was assisting me throughout the duration of this procedure. The skill set of a physician housekeeper and laundry assistant was medically necessary to complete this procedure. During the surgical case the surgical rn was working at the back table and the physician housekeeper and laundry assistant was directly assisting me. Operation and Findings: Patient was seen and evaluated preoperatively and found to have displaced right midfoot fracture dislocations. He also had fibula fracture which was minimally displaced initially. He also has type III open left distal femur and proximal tibia fractures. Informed consent was obtained after detailed discussion of the risk and benefits of surgery. Operative site was marked. Patient brought to operating room and given IV sedation and general anesthesia. The right lower extremity was now prepped with alcohol followed by Hibiclens and draped in usual sterile fashion. IV antibiotics were administered prior to procedure. Time out procedure was now performed to confirm both the patient and procedure. Procedure began with a 3 inch incision over the dorsum of the midfoot. Incision was centered between the first and second tarsometatarsal joints. Subcutaneous tissue was dissected with Bovie. The EHL tendon was identified. The EHL tendon was now retracted laterally to expose the first tarsometatarsal joint. Next the second tarsometatarsal joint was exposed. The neurovascular bundle was retracted medially. The second tarsometatarsal joint was now visualized. Attention was now turned towards reduction. The second tarsometatarsal joint was manipulated. The joint surface was cleaned with curettes. Using a fracture tenaculum the second metatarsal was reduced into anatomic alignment. A K wire was used to hold provisional fixation. The first tarsometatarsal joint was now manually held in anatomic alignment. A K wire was placed across this joint for additional temporary stabilization. Next attention was turned towards the third tarsometatarsal joint. The joint was visualized through the same incision.. The joint was mainly reduced. K wires were used to hold provisional fixation. Fluoroscopy confirmed appropriate alignment. At this point attention was turned toward stabilization of the first second and third tarsal metatarsal joints. 3.5 cortical lag screws were placed across the first and second tarsometatarsal joints. A third screw was placed from the medial cuneiform into the base of the second metatarsal. A 2.7 mm lag screw was placed across the third tarsometatarsal joint. Screws were predrilled and premeasured for appropriate length. Fluoroscopy confirmed appropriate pin placement. Next attention was turned towards the third metatarsal fracture. There was 100 % displacement of the fracture. Attempts were made at closed reduction. I was unable to achieve appropriate reduction. A 2 cm incision was made directly over the fracture site. Soft tissue was dissected bluntly. Fracture site was visualized. The fracture was mainly reduced. A 0.62 K wire was now advanced through the metatarsal head into the shaft of the metatarsal. Fluoroscopy confirmed appropriate pin placement. Next, the fourth, and fifth tarsometatarsal joints were manually reduced. These keyed into place with a cuboid. At this point attention was turned towards pinning of the fourth tarsometatarsal joint. The joints were held in a reduced position. A K wire was placed at the distal end of the fourth metatarsal. The K wire was advanced up the metatarsal canal. K wire was now advanced into the cuboid. Fluoroscopy confirmed excellent alignment of fracture/dislocation. Incisions were thoroughly irrigated. Hemostasis was obtained. Incisions were now closed with 3-0 Vicryl and 3-0 nylon. Jergens balls were now placed over the 3 K wires. These K wires were now bent and cut appropriately. At this point the ankle fracture was visualized under fluoroscopy. There was displacement of the distal fibula fracture. There was slight subluxation of the ankle joint. Decision was made to proceed with open reduction to fixation of the fibula. A 4 inch incision was made of the distal fibula. Subcutaneous tissue was dissected Bovie. Fracture site was visualized. Fracture was mainly reduced with fracture tenaculums. A 2.7 cortical lag screw was placed to compress fracture. A Synthes one third tubular plate was selected and contoured to fit the fibula. Plate was provisionally held both K wires. 3.5 cortical screws were used to compress plate to bone. 3 screws were placed above and below fracture. Fluoroscopy confirmed excellent alignment of fracture with well-placed hardware. Incisions were closed with 3-0 Vicryl and 3 -0 nylon. Sterile dressings were applied with Xeroform, soft roll, and a well molded well-padded splint. Patient was awakened and transferred to recovery in stable condition. Nexus was turned towards the left leg. The VAC dressing was removed. Overall the tissue appeared to be healthy. The wound was thoroughly irrigated with sterile saline. A extra large VAC dressing was now cut to fit the wound. VAC dressing was sealed appropriately. Patient was awakened and transferred to recovery in stable condition.
[2018-04-12] MEDS ORDERED: fentaNYL Citrate Inj 100 MCG/2 ML Ampul ONE (12:45)
[2018-04-12] MEDS ORDERED: Ketorolac Inj 30 MG/ML (IVP) Vial IV.PUSH SCH (13:00)
--- NOTE | 2018-04-12 14:44 | XR ---
EXAM DATE: 04/12/2018 12:00 AM EDT AGE/SEX: 57 years / Male INDICATIONS: ORIF right foot fracture. CLINICAL DATA: This is the patient's subsequent encounter. Patient reports that signs and symptoms h ave been present for 2 weeks and indicates a pain score of Nonresponsive. MEDICAL/SURGICAL HISTORY: Non-responsive. Non-responsive. COMPARISON: [facility] – [place] FOOT [place] RIGHT 2V, 04/03/2018. . FINDINGS: This demonstrates placement of K wires through the third and fourth metatarsals and into the lateral cuneiform and cuboid. Is been placement of 4 surgical screws as well 3 extending through the base of the first through third metatarsal into the cuneiforms the fourth extending from the medial cuneiform into the base of the second metatarsal. The alignment of the metatarsals is now near-anatomic. There is a fracture involving the base of the first metatarsal without significant change. CONCLUSION: Status post open rigid internal fixation. Electronically signed by: Mahamed Gomez MD 04/12/2018 2:43 PM EDT
--- NOTE | 2018-04-12 14:46 | XR ---
EXAM DATE: 04/12/2018 12:00 AM EDT AGE/SEX: 57 years / Male INDICATIONS: ORIF right ankle fracture. CLINICAL DATA: This is the patient's subsequent encounter. Patient reports that signs and symptoms h ave been present for 2 weeks and indicates a pain score of Nonresponsive. MEDICAL/SURGICAL HISTORY: Non-responsive. Non-responsive. COMPARISON: [facility] – [place] COM[place]TE RIGHT 3V, 04/12/2018. . FINDINGS: Multiple coned-down views of the ankle were obtained and demonstrate interval placement of a screw pl ate fixation device along the distal fibula. There is a single surgical screw in place as well. The f racture fragments are in anatomic alignment. The ankle mortise is congruent. CONCLUSION: Status post open rigid internal fixation. Electronically signed by: Mahamed Gomez MD 04/12/2018 2:44 PM EDT
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
--- NOTE | 2018-04-12 15:48 | ECG ---
Date Performed: 04/12/2018 Time Performed: 04:44:40 PTAGE: 57 years EKG: Sinus rhythm SEPTAL MYOCARDIAL INFARCTION , OF INDETERMINATE AGE ABNORMAL ECG PREVIOUS TRACING : 04/10/2018 08.23 Since the previous tracing, no significant change noted DOCTOR: Fela Henley Interpretating Date/Time 04/12/2018 15:46:42
[2018-04-12] MEDS: HYDROmorphone PF Inj 2 MG/ML Vial IV.PUSH PRN ×2 (16:00→21:25)
[2018-04-12 19:49] LABS: Vancomycin,Random 13.8 Comment
[2018-04-13] MEDS: ceFAZolin 2 GM Premix Inj 2 GM/50 ML PIGGYBACK IV.SIG SCH ×3 (01:58→17:15)
[2018-04-13] MEDS: HYDROmorphone PF Inj 2 MG/ML Vial IV.PUSH PRN ×2 (01:58→05:44)
[2018-04-13] MEDS: Sod Chloride 0.9% Inj 1,000 ML IV.CONT SCH ×2 (02:46→21:58)
[2018-04-13] MEDS: Ketorolac Inj 30 MG/ML (IVP) Vial IV.PUSH SCH ×2 (05:25→17:15)
[2018-04-13 05:29] LABS: Hematocrit 22.5 % (39.0-51.0); Hemoglobin 7.3 gm/dL (13.0-17.0)
[2018-04-13] MEDS: Piperacil/Tazo 4.5 GM Premix 4.5 GM/100 ML BAG IV.SIG SCH (05:48)
[2018-04-13] MEDS ORDERED: Sodium Chlor 0.9% Inj 250 ML IV.SIG SCH (07:00)
[2018-04-13] MEDS ORDERED: Vancomycin Inj 1,000 MG in Sodium Chlor 0.9% Inj 250 ML IV.SIG SCH (09:00)
[2018-04-13] MEDS: Famotidine 20 MG Tablet PO SCH ×2 (09:25→21:59)
[2018-04-13] MEDS: Senna/Docusate Sodium 8.6/50 MG Tablet PO SCH ×2 (09:25→21:59)
[2018-04-13] MEDS: Folic Acid 1 MG Tablet PO SCH (09:25)
[2018-04-13] MEDS: Gabapentin 400 MG Capsule PO SCH ×3 (09:25→17:15)
[2018-04-13] MEDS: Lactobacillus Acidophilus/L. Spores Tablet PO SCH ×3 (09:40→17:15)
--- NOTE | 2018-04-13 09:51 | P.PNOP ---
Subjective Interval history: Pain is controlled. No new complaints. Patient has a very good attitude Physical Exam Vital signs: Vital Signs 04/12/18 12:00 04/12/18 12:38 04/12/18 12:45 Temperature 97.1 F L 98.6 F Pulse Rate 94 H 96 H 92 H Respiratory Rate 18 16 16 Blood Pressure 123/76 114/71 112/70 Pulse Oximetry 92 L 95 95 04/12/18 13:00 04/12/18 13:26 04/12/18 15:02 Temperature 98.6 F Pulse Rate 92 H 93 H Respiratory Rate 16 16 18 Blood Pressure 102/68 105/70 Pulse Oximetry 95 95 04/12/18 15:35 04/12/18 16:00 04/12/18 16:01 Temperature 98 F Pulse Rate 94 H Respiratory Rate 18 17 Blood Pressure 120/66 Pulse Oximetry 93 L 95 04/12/18 16:30 04/12/18 17:30 04/12/18 20:00 Temperature 97.8 F Pulse Rate 97 H Respiratory Rate 18 18 20 Blood Pressure 136/69 Pulse Oximetry 95 04/13/18 00:00 04/13/18 04:00 04/13/18 05:55 Temperature 97.6 F 98.6 F Pulse Rate 99 H 100 H Respiratory Rate 20 20 17 Blood Pressure 136/67 136/64 Pulse Oximetry 98 98 04/13/18 06:11 04/13/18 08:00 Temperature 98.1 F Pulse Rate 95 H Respiratory Rate 17 14 Blood Pressure 121/62 Pulse Oximetry 98 Intake & Output 04/12/18 04/13/18 04/13/18 18:59 06:59 18:59 Intake Total 2300 / 2300 700 / 700 Output Total 400 / 400 1400 / 1400 Balance 1900 / 1900 -700 / -700 Weight 107.4 kg Intake: IV 300 / 300 250 / 250 Zosyn 4.5 GM Premix 4.5 gm In 200 / 200 200 / 200 100 ml @ 200 mls/hr IV.SIG Q6H DEEPA Rx#:[id number] Ancef 2 GM Premix Inj 2 gm In 100 / 100 50 / 50 50 ml @ 100 mls/hr IV.SIG Q8H DEEPA Rx#:[id number] Oral 500 / 500 450 / 450 Anesthesia Amount 1500 / 1500 Output: Urine 350 / 350 1400 / 1400 Estimated Blood Loss 50 / 50 Other: Mode Setting Left Leg Intermittent Continuous # Voids 1 Date of Last Bowel Movement 04/09/18 # Bowel Movements 0 Narrative: Right lower extremity: No pain with hip or knee range of motion. Short leg splint in place. Intact sensation in all toes with good capillary refills. Left lower extremity: No pain to palpation of hip. He has external fixator in place. Wound VAC is intact with appropriate seal at 100 mmHg at DPC 3: 1. Short leg splint in place. Intact distal pulses and good capillary refill - Urinary Catheter Management Indwelling Urethral Catheter Cath placed during this visit: yes, but has since been removed by the nurse Reason for continuing: Acute urinary retention Insertion date: 04/03/18 Insertion time: 14:10 Removal date: 04/07/18 Removal time: 09:30 Results - Labs CBC & Chem 7: 04/13/18 05:11 04/13/18 03:45 Laboratory Results - last 24 hr 04/12/18 04/13/18 04/13/18 18:45 03:45 05:11 Hgb 7.3 L Hct 22.5 L Creatinine 1.47 H 1.27 Estimated GFR 60 L 71 L Random Vancomycin 13.8 Blood Type Antibody Screen MTS Gel Crossmatch Bld Prod Order Comment 04/13/18 07:26 Hgb Hct Creatinine Estimated GFR Random Vancomycin Blood Type O Positive Antibody Screen Negative MTS Gel Crossmatch See Detail Bld Prod Order Comment Microbiology 04/10/18 21:20 Sputum - Expectorated Sputum Gram Stain - Final 04/10/18 21:20 Sputum - Expectorated Sputum Sputum Culture - Preliminary Heavy growth normal respiratory andrew at 24 hours 04/10/18 21:55 Blood - Peripheral Aerobic Blood Culture - Preliminary No growth in 2 days 04/10/18 21:55 Blood - Peripheral Anaerobic Blood Culture - Preliminary No growth in 2 days 04/10/18 21:03 Blood - Peripheral Aerobic Blood Culture - Preliminary No growth in 2 days 04/10/18 21:03 Blood - Peripheral Anaerobic Blood Culture - Preliminary No growth in 2 days 04/07/18 09:25 Blood - Other Aerobic Blood Culture - Final No growth in 5 days 04/07/18 09:25 Blood - Other Anaerobic Blood Culture - Final No growth in 5 days 04/07/18 09:30 Blood - Other Aerobic Blood Culture - Final No growth in 5 days 04/07/18 09:30 Blood - Other Anaerobic Blood Culture - Final No growth in 5 days - Imaging Impressions Ankle X-Ray 04/12/18 00:00 CONCLUSION: Status post open rigid internal fixation. Foot X-Ray 04/12/18 00:00 CONCLUSION: Status post open rigid internal fixation. Assessment and Plan - Assessment and Plan POD 1 open reduction internal fixation of right Lisfranc fracture dislocations of foot and distal fibula fracture ORIF POD 3 s/p ORIF left distal lateral femur POD 3 s/p soleus muscle flap left leg POD 8 s/p ORIF left ankle s/p right hand fx s/p left open leg wound Nonweightbearing bilateral lower extremities NPO after midnight on Monday night maintain vac at all times left leg 100 mg of mercury with DPC 3:1 maintain splint right foot and hand will plan for repeat I&D with wound VAC change left leg possibly Monday
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
[2018-04-13] MEDS: levoFLOXacin 750 MG Tablet PO SCH (11:36)
[2018-04-13] MEDS: Enoxaparin Inj 30 MG/0.3 ML Syringe SQ SCH ×2 (11:37→21:58)
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
[2018-04-14] MEDS: ceFAZolin 2 GM Premix Inj 2 GM/50 ML PIGGYBACK IV.SIG SCH ×2 (02:45→09:30)
[2018-04-14 04:59] LABS: Hemoglobin 8.3 gm/dL (13.0-17.0)
[2018-04-14] MEDS ORDERED: Pharmacy Ordered Lab Info OTHER ONE (08:45)
[2018-04-14] MEDS: Enoxaparin Inj 30 MG/0.3 ML Syringe SQ SCH ×2 (09:30→21:20)
[2018-04-14] MEDS: Lactobacillus Acidophilus/L. Spores Tablet PO SCH ×3 (09:31→17:48)
[2018-04-14] MEDS: Folic Acid 1 MG Tablet PO SCH (09:31)
[2018-04-14] MEDS: Gabapentin 400 MG Capsule PO SCH ×3 (09:31→17:48)
[2018-04-14] MEDS: Famotidine 20 MG Tablet PO SCH ×2 (09:31→21:21)
[2018-04-14] MEDS: levoFLOXacin 750 MG Tablet PO SCH (09:31)
[2018-04-14] MEDS: Senna/Docusate Sodium 8.6/50 MG Tablet PO SCH ×2 (09:34→21:20)
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
[2018-04-14] MEDS: Sod Chloride 0.9% Inj 1,000 ML IV.CONT SCH (17:49)
[2018-04-15] MEDS: Enoxaparin Inj 30 MG/0.3 ML Syringe SQ SCH ×2 (10:18→20:10)
[2018-04-15] MEDS: levoFLOXacin 750 MG Tablet PO SCH (10:19)
[2018-04-15] MEDS: Senna/Docusate Sodium 8.6/50 MG Tablet PO SCH ×2 (10:20→20:14)
[2018-04-15] MEDS: Folic Acid 1 MG Tablet PO SCH (10:20)
[2018-04-15] MEDS: Gabapentin 400 MG Capsule PO SCH ×3 (10:20→17:40)
[2018-04-15] MEDS: Famotidine 20 MG Tablet PO SCH ×2 (10:21→20:13)
[2018-04-15] MEDS: Lactobacillus Acidophilus/L. Spores Tablet PO SCH ×3 (10:21→17:40)
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
[2018-04-15] MEDS: Sod Chloride 0.9% Inj 1,000 ML IV.CONT SCH (19:28)
[2018-04-16] MEDS ORDERED: Sodium Chlor 0.9% Inj 500 ML IV.CONT ONE (01:45)
[2018-04-16] MEDS ORDERED: Chlorhexidine Gluconate 2% 1 Pack (2 Cloths) TOPICAL ONE (01:45)
--- NOTE | 2018-04-16 06:36 | P.PNOP ---
Subjective Interval history: POD 4 s/p ORIF right foot POD 6 s/p ORIF left distal femur and soleus flap POD 11 s/p ORIF left ankle s/p right hand fx doing well. no changes. resting comfortably Physical Exam Vital signs: Vital Signs 04/15/18 08:00 04/15/18 12:00 04/15/18 16:00 Temperature 100.2 F H 99.7 F H 99.5 F Pulse Rate 105 H 112 H 108 H Respiratory Rate 17 17 18 Blood Pressure 129/71 121/70 122/75 Pulse Oximetry 97 97 96 04/15/18 16:19 04/15/18 20:00 04/15/18 20:44 Temperature 100.3 F H Pulse Rate 112 H Respiratory Rate 18 18 17 Blood Pressure 121/70 Pulse Oximetry 95 04/16/18 00:00 04/16/18 00:47 04/16/18 04:00 Temperature 99.7 F H 98.3 F Pulse Rate 113 H 107 H Respiratory Rate 18 17 18 Blood Pressure 118/67 131/81 Pulse Oximetry 97 96 04/16/18 05:33 Temperature Pulse Rate Respiratory Rate 18 Blood Pressure Pulse Oximetry Intake & Output 04/15/18 04/15/18 04/16/18 06:59 18:59 06:59 Intake Total 1360 / 1360 Output Total 2775 / 2775 1000 / 1000 2099 / 2099 Balance -2775 / -2775 360 / 360 -2100 / -2100 Weight 111.5 kg 111.5 kg Intake: IV 1000 / 1000 NS Inj 1,000 ML @ 50 mls/hr IV. 1000 / 1000 CONT .Q20H DEEPA Rx#:[id number] Oral 360 / 360 Output: Urine 2775 / 2775 1000 / 1000 2099 / 2100 Other: Mode Setting Left Leg Continuous Continuous Continuous Date of Last Bowel Movement 04/14/18 04/14/18 04/14/18 # Bowel Movements 0 Narrative: RLE: +splint. intact. nvi LLE: +exfix and splint. intact. +vac. good seal. - Urinary Catheter Management Indwelling Urethral Catheter Cath placed during this visit: yes, but has since been removed by the nurse Reason for continuing: Acute urinary retention Insertion date: 04/03/18 Insertion time: 14:10 Removal date: 04/07/18 Removal time: 09:30 Results - Labs CBC & Chem 7: 04/14/18 04:29 04/15/18 05:46 Laboratory Results - last 24 hr 04/15/18 05:46 Creatinine 1.12 Estimated GFR 82 L Microbiology 04/10/18 21:55 Blood - Peripheral Aerobic Blood Culture - Final No growth in 5 days 04/10/18 21:55 Blood - Peripheral Anaerobic Blood Culture - Final No growth in 5 days 04/10/18 21:03 Blood - Peripheral Aerobic Blood Culture - Final No growth in 5 days 04/10/18 21:03 Blood - Peripheral Anaerobic Blood Culture - Final No growth in 5 days Assessment and Plan - Assessment and Plan POD 4 open reduction internal fixation of right Lisfranc fracture dislocations of foot and distal fibula fracture ORIF POD 6 s/p ORIF left distal lateral femur POD 6 s/p soleus muscle flap left leg POD 11 s/p ORIF left ankle s/p right hand fx s/p left open leg wound Nonweightbearing bilateral lower extremities resume diet NPO after midnight on monday night maintain vac at all times left leg 100 mg of mercury with DPC 3:1 maintain splint right foot and hand will plan for repeat I&D with wound VAC change left leg monday
[2018-04-16] MEDS ORDERED: Lidocaine PF 1% Inj 5 ML Syringe OTHER ONE (10:21)
[2018-04-16] MEDS ORDERED: Neostigmine Inj 5 MG/5 ML Syringe IV.PUSH ONE (10:21)
[2018-04-16] MEDS ORDERED: Ketorolac Inj 30 MG/ML (IVP) Vial IV.PUSH ONE (10:21)
[2018-04-16] MEDS ORDERED: Glycopyrrolate Inj 1 MG/5 ML Syringe IV.PUSH ONE (10:21)
[2018-04-16] MEDS ORDERED: Labetalol HCl Inj 100 MG/20 ML Vial IV.CONT ONE (10:21)
[2018-04-16] MEDS ORDERED: Phenylephrine/NS 1000 MCG/10ML Syringe IV.PUSH ONE (10:21)
[2018-04-16] MEDS ORDERED: Post-op Orders (for Pharmacy) OTHER STA (11:22)
--- NOTE | 2018-04-16 11:28 | P.OP ---
- Preoperative Diagnosis (1) Degloving injury of left lower leg (2) Open fracture of left distal femur, type III, with routine healing Date of procedure: 04/16/18 Procedure: Irrigation and debridement of left leg, application of wound VAC dressing, soleus rotational muscle flap Anesthesia: BRADYA Surgeon: Ceferino Moore MD Zoology Technical Officer: SCOTT Schuler PA-C The surgical procedure was assisted by my physician assistant professor sculpture. My P.A. presence was necessary throughout this case for the manipulation and positioning of the surgical extremity. My P.A. was assisting me throughout the duration of this procedure. The skill set of a physician assistant professor sculpture was medically necessary to complete this procedure. During the surgical case the pharmacy technologist was working at the back table and the physician assistant professor sculpture was directly assisting me. Operation and Findings: Juan returned to the operating room today for treatment of his left leg injuries. Informed consent was obtained and OpSite was marked. He is brought the operating room. Patient was given IV sedation and general anesthesia. The left leg was prepped with alcohol followed Hibiclens and draped in usual sterile fashion. Timeout procedure was performed. Procedure began with debridement of the wound. There was additional necrotic skin over the tibia. Full-thickness skin flaps were excised. An excisional debridement was performed. Small portions of muscle were also excised. After thorough debridement of necrotic tissue, the wound was thoroughly irrigated with pulsatile lavage. At this point the wound was examined. There was a large portion of the tibia shaft which is exposed. There does not appear to be any granulation tissue forming over this region. Decision was made to proceed with soleus flap. The soleus muscle was identified and mobilized. The medial half of the soleus muscle was used for a flap. Distally the medial half of the muscle and tendon were transected. The muscle was now split in line with fibers. The muscle was now rotated over to cover the majority of the exposed tibia. The muscle was now sutured into place using 2-0 PDS. The muscle appeared to be relatively healthy and viable. Next attention was turned to wound VAC dressing. A VAC dressing was cut to fit the wound. VAC dressing was sealed appropriately. Sterile dressings were applied. Patient was awakened and transferred to recovery in stable condition.
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
[2018-04-16] MEDS ORDERED: fentaNYL Citrate Inj 100 MCG/2 ML Ampul IV.PUSH ONE (12:08)
[2018-04-16] MEDS: Lactobacillus Acidophilus/L. Spores Tablet PO SCH ×3 (12:32→17:51)
[2018-04-16] MEDS: Folic Acid 1 MG Tablet PO SCH (12:32)
[2018-04-16] MEDS: Sod Chloride 0.9% Inj 1,000 ML IV.CONT SCH (12:32)
[2018-04-16] MEDS: Enoxaparin Inj 30 MG/0.3 ML Syringe SQ SCH ×2 (12:32→21:57)
[2018-04-16] MEDS: Famotidine 20 MG Tablet PO SCH ×2 (12:33→21:57)
[2018-04-16] MEDS: Gabapentin 400 MG Capsule PO SCH ×3 (12:33→17:51)
[2018-04-16] MEDS: Senna/Docusate Sodium 8.6/50 MG Tablet PO SCH ×2 (12:33→21:57)
[2018-04-16] MEDS: levoFLOXacin 750 MG Tablet PO SCH (15:16)
[2018-04-16 16:32] LABS: Hematocrit 26.1 % (39.0-51.0); Hemoglobin 8.6 gm/dL (13.0-17.0)
[2018-04-17] MEDS: Sod Chloride 0.9% Inj 1,000 ML IV.CONT SCH (06:13)
--- NOTE | 2018-04-17 06:44 | P.PNOP ---
Subjective Interval history: Resting comfortably with no new complaints Physical Exam Vital signs: Vital Signs 04/16/18 08:00 04/16/18 12:01 04/16/18 12:15 Temperature 98.6 F 98 F Pulse Rate 108 H 91 H 91 H Respiratory Rate 19 16 16 Blood Pressure 115/78 93/60 L 95/66 L Pulse Oximetry 94 L 95 95 04/16/18 12:28 04/16/18 12:30 04/16/18 13:24 Temperature 98.2 F 98.2 F Pulse Rate 96 H 92 H 95 H Respiratory Rate 16 16 18 Blood Pressure 105/73 98/70 L 113/67 Pulse Oximetry 95 95 92 L 04/16/18 16:00 04/16/18 20:00 04/17/18 00:00 Temperature 97.8 F 98.6 F 98.9 F Pulse Rate 101 H 99 H 112 H Respiratory Rate 18 17 17 Blood Pressure 103/60 111/66 94/55 L Pulse Oximetry 97 94 L 96 04/17/18 04:00 Temperature 98.5 F Pulse Rate 105 H Respiratory Rate 18 Blood Pressure 128/68 Pulse Oximetry 97 Intake & Output 04/16/18 04/16/18 04/17/18 06:59 18:59 06:59 Output Total 2099 775 / 775 3250 / 3250 Balance -2100 / -2100 -775 / -775 -3250 / -3250 Weight 111.5 kg 111.4 kg Output: Urine 2099 750 / 750 3125 / 3125 Estimated Blood Loss 25 / 25 Wound Vac Amount 125 / 125 Left Leg 125 / 125 Other: Mode Setting Left Leg Continuous Continuous Intermittent # Voids 1 Date of Last Bowel Movement 04/14/18 04/14/18 Narrative: Right lower extremity: No pain with hip or knee range of motion. Short leg splint in place. Clean and dry. Intact sensation all toes good capillary refills Left lower extremity: Clean dry dressings intact. Wound VAC in place with appropriate seal. Short leg splint in place. Intact sensation distally with good capillary refill. Is able to move his toes appropriately - Urinary Catheter Management Indwelling Urethral Catheter Cath placed during this visit: yes, but has since been removed by the nurse Reason for continuing: Acute urinary retention Insertion date: 04/03/18 Insertion time: 14:10 Removal date: 04/07/18 Removal time: 09:30 Results - Labs CBC & Chem 7: 04/16/18 15:40 04/15/18 05:46 Laboratory Results - last 24 hr 04/16/18 15:40 Hgb 8.6 L Hct 26.1 L Assessment and Plan - Assessment and Plan POD5 open reduction internal fixation of right Lisfranc fracture dislocations of foot and distal fibula fracture ORIF POD 7 s/p ORIF left distal lateral femur POD 7 s/p soleus muscle flap left leg, POD 1 Gastroc flap and vac change POD 12 s/p ORIF left ankle s/p right hand fx s/p left open leg wound Nonweightbearing bilateral lower extremities NPO after midnight on Monday night maintain vac at all times left leg 100 mg of mercury with DPC 3:1 maintain splint right foot and hand will plan for repeat I&D with wound VAC change left leg
[2018-04-17] MEDS: Gabapentin 400 MG Capsule PO SCH ×3 (08:25→18:13)
[2018-04-17] MEDS: Lactobacillus Acidophilus/L. Spores Tablet PO SCH ×3 (08:25→18:13)
[2018-04-17] MEDS: Senna/Docusate Sodium 8.6/50 MG Tablet PO SCH ×2 (08:25→21:49)
[2018-04-17] MEDS: Famotidine 20 MG Tablet PO SCH ×2 (08:25→21:48)
[2018-04-17] MEDS: Folic Acid 1 MG Tablet PO SCH (08:26)
[2018-04-17] MEDS: Enoxaparin Inj 30 MG/0.3 ML Syringe SQ SCH ×2 (08:26→21:48)
[2018-04-17] MEDS: levoFLOXacin 750 MG Tablet PO SCH (08:26)
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
[2018-04-18] MEDS: Sod Chloride 0.9% Inj 1,000 ML IV.CONT SCH ×2 (04:24→22:48)
--- NOTE | 2018-04-18 06:37 | P.PNOP ---
Subjective Interval history: Resting comfortably with no new complaints Physical Exam Vital signs: Vital Signs 04/17/18 08:00 04/17/18 10:35 04/17/18 12:00 Temperature 98.2 F 98.1 F Pulse Rate 104 H 109 H Respiratory Rate 16 18 16 Blood Pressure 102/62 124/65 Pulse Oximetry 96 95 04/17/18 15:10 04/17/18 16:35 04/17/18 20:05 Temperature 98.5 F 98.8 F Pulse Rate 109 H 110 H Respiratory Rate 17 20 18 Blood Pressure 123/70 127/78 Pulse Oximetry 98 95 04/17/18 23:28 Temperature 99.1 F Pulse Rate 113 H Respiratory Rate 18 Blood Pressure 115/68 Pulse Oximetry 96 Intake & Output 04/17/18 04/17/18 04/18/18 06:59 18:59 06:59 Output Total 3250 / 3250 20 / 20 2400 / 2400 Balance -3250 / -3250 -20 / -20 -2400 / -2400 Weight 111.4 kg Output: Urine 3125 / 3125 2200 / 2200 Wound Drainage 200 / 200 Left Foot 200 / 200 Wound Vac Amount 125 / 125 20 / 20 Left Leg 125 / 125 20 / 20 Other: Mode Setting Left Leg Intermittent Intermittent Intermittent Date of Last Bowel Movement 04/14/18 04/14/18 04/17/18 Narrative: Right lower extremity: Splint intact. Clean dry dressings intact. Intact sensation all toes Left lower extremity: External fixator in place. Clean dry dressings in place wound VAC intact with appropriate seal. Intact sensation in all toes. Good capillary refills. He is able to plantarflex and dorsiflex his toes - Urinary Catheter Management Indwelling Urethral Catheter Cath placed during this visit: yes, but has since been removed by the nurse Reason for continuing: Acute urinary retention Insertion date: 04/03/18 Insertion time: 14:10 Removal date: 04/07/18 Removal time: 09:30 Results - Labs CBC & Chem 7: 04/16/18 15:40 04/15/18 05:46 Assessment and Plan - Assessment and Plan POD6 open reduction internal fixation of right Lisfranc fracture dislocations of foot and distal fibula fracture ORIF POD 8 s/p ORIF left distal lateral femur POD 8 s/p soleus muscle flap left leg, POD 2 Gastroc flap and vac change POD 13 s/p ORIF left ankle s/p right hand fx s/p left open leg wound Nonweightbearing bilateral lower extremities NPO after midnight on Monday night maintain vac at all times left leg 100 mg of mercury with DPC 3:1 maintain splint right foot and hand will plan for repeat I&D with wound VAC change left leg
[2018-04-18] MEDS: Enoxaparin Inj 30 MG/0.3 ML Syringe SQ SCH ×2 (08:16→21:53)
[2018-04-18] MEDS: Folic Acid 1 MG Tablet PO SCH (08:16)
[2018-04-18] MEDS: levoFLOXacin 750 MG Tablet PO SCH (08:17)
[2018-04-18] MEDS: Lactobacillus Acidophilus/L. Spores Tablet PO SCH ×3 (08:17→17:12)
[2018-04-18] MEDS: Gabapentin 400 MG Capsule PO SCH ×3 (08:17→17:12)
[2018-04-18] MEDS: Famotidine 20 MG Tablet PO SCH ×2 (08:17→21:54)
[2018-04-18] MEDS: Senna/Docusate Sodium 8.6/50 MG Tablet PO SCH ×2 (08:17→21:54)
--- NOTE | 2018-04-18 15:20 | P.PNWCN ---
Wound Care Nurse Consult Description: Received consult from Arlen WALLACE for R buttock and evrob for specialty bed Communicated with: REZA Connors and Arlen WALLACE Recommendation: Please contact orthopedic surgeon for large area of induration with fluctuance to R lateral and posterior thigh area. Please apply Riters cream to open wounds to R lateral and posterior thigh areas BID and PRN and leave open to air, unless drainage or pain is noted, then cover with ABD pads secured with paper tape. Wound/Pressure Injury - Patient Status Premedicated for Pain Prior to Dressing Change: No - Wound Right lateral Posterior thigh Wound Type: Traumatic Wound Is This a Chronic Wound: No Requested from Provider a Wound Care Consult: Yes Wound Bed Appearance: [place], Yellow Wound Bed Appearance: Wounds noted to R lateral and posterior thigh presents with 60% pink tissue and ~40% yellow tissue. Surrounding Tissue Appearance: [place] Surrounding Tissue Temperature: Warm Drainage Amount: None Drainage Odor: No Odor Dressing Status: Open to Air Wound Margin Description: jagged and irregular - Additional Information Patient seen on for evaluation of R buttock and specialty bed. Patient is able to turn self without assistance slightly to L side to reveal large area of indurated fluctuance measuring ~30cm x ~20cm. Removed adhesive foam dressing in place to lateral R thigh to reveal Friction related appearing wounds within the indurated area. Wounds are dry and non draining, without foul odor. Call was placed to Arlen WALLACE to notify her of findings. Wounds were cleansed with normal saline and left open to air.
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
[2018-04-19] MEDS ORDERED: Metoprolol Tartrate 25 MG Tablet PO ONE (05:04)
[2018-04-19] MEDS ORDERED: Chlorhexidine Gluconate 2% 1 Pack (2 Cloths) TOPICAL ONE (05:04)
[2018-04-19] MEDS ORDERED: Sodium Chlor 0.9% Inj 500 ML IV.SIG SCH (06:00)
--- NOTE | 2018-04-19 06:36 | P.PNOP ---
Subjective Interval history: Resting comfortably with no new complaints. Physical Exam Vital signs: Vital Signs 04/18/18 08:00 04/18/18 12:00 04/18/18 16:00 Temperature 99.2 F 99.3 F 99.1 F Pulse Rate 110 H 132 H 116 H Respiratory Rate 18 Blood Pressure 123/75 130/79 125/67 Pulse Oximetry 98 98 96 04/18/18 16:20 04/18/18 20:00 04/18/18 23:35 Temperature 99.5 F 98.5 F Pulse Rate 128 H Respiratory Rate 16 Blood Pressure 130/76 162/70 H Pulse Oximetry 98 97 04/18/18 23:53 04/19/18 02:00 04/19/18 04:00 Temperature 99.9 F H 99.5 F Pulse Rate 112 H 111 H Respiratory Rate 18 Blood Pressure 109/78 103/75 Pulse Oximetry 97 96 04/19/18 04:52 Temperature Pulse Rate Respiratory Rate 17 Blood Pressure Pulse Oximetry Intake & Output 04/18/18 04/18/18 04/19/18 06:59 18:59 06:59 Intake Total 240 / 240 Output Total 3000 / 3000 2100 / 2100 1325 / 1325 Balance -2760 / -2760 -2100 / -2100 -1325 / -1325 Weight 104.6 kg 105 kg Intake: Oral 240 / 240 Output: Urine 2800 / 2800 2000 / 2000 1325 / 1325 Wound Drainage 200 / 200 Left Foot 200 / 200 Wound Vac Amount 100 / 100 Left Leg 100 / 100 Other: Mode Setting Left Leg Intermittent Intermittent Continuous Date of Last Bowel Movement 04/17/18 04/14/18 04/18/18 # Bowel Movements 0 1 Narrative: Right lower extremity: Relatively large serous collection over the right hip. Does not appear to be infected or draining. No pain with knee range of motion. Short leg splint in place. Intact sensation in all toes with good capillary refills. Left lower extremity: No pain with hip range of motion. External fixator in place with wound VAC intact. Appropriate seal. Intact sensation distally in toes. Short leg splint in place with posterior and stirrup. - Urinary Catheter Management Indwelling Urethral Catheter Cath placed during this visit: yes, but has since been removed by the nurse Reason for continuing: Acute urinary retention Insertion date: 04/03/18 Insertion time: 14:10 Removal date: 04/07/18 Removal time: 09:30 Results - Labs CBC & Chem 7: 04/16/18 15:40 04/15/18 05:46 Assessment and Plan - Assessment and Plan POD7 open reduction internal fixation of right Lisfranc fracture dislocations of foot and distal fibula fracture ORIF POD 9 s/p ORIF left distal lateral femur POD 9 s/p soleus muscle flap left leg, POD 3 Gastroc flap and vac change POD 14 s/p ORIF left ankle s/p right hand fx s/p left open leg wound Large serous collection right hip -continue to watch and let body reabsorb. It will take weeks to months to fully reabsorb Nonweightbearing bilateral lower extremities, nonweightbearing right hand NPO maintain vac at all times left leg 100 mg of mercury with DPC 3:1 maintain splint right foot and hand will plan for repeat I&D with wound VAC change left leg Today
[2018-04-19] MEDS: Enoxaparin Inj 30 MG/0.3 ML Syringe SQ SCH ×2 (09:35→20:05)
[2018-04-19] MEDS: Folic Acid 1 MG Tablet PO SCH (09:35)
[2018-04-19] MEDS: Lactobacillus Acidophilus/L. Spores Tablet PO SCH ×3 (09:35→17:24)
[2018-04-19] MEDS: levoFLOXacin 750 MG Tablet PO SCH ×2 (09:35→11:16)
[2018-04-19] MEDS: Senna/Docusate Sodium 8.6/50 MG Tablet PO SCH ×2 (09:36→20:04)
[2018-04-19] MEDS: Famotidine 20 MG Tablet PO SCH ×3 (09:36→20:04)
[2018-04-19] MEDS: Gabapentin 400 MG Capsule PO SCH ×4 (09:36→17:24)
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
[2018-04-19] MEDS ORDERED: Sodium Chlor 0.9% Inj 250 ML ONE (11:19)
[2018-04-19] MEDS ORDERED: ceFAZolin 2 GM Premix Inj 2 GM/50 ML PIGGYBACK IV.SIG ONE (11:19)
[2018-04-19] MEDS ORDERED: Phenylephrine/NS 1000 MCG/10ML Syringe IV.PUSH ONE (11:39)
[2018-04-19] MEDS ORDERED: Lidocaine PF 1% Inj 5 ML Syringe OTHER ONE (11:39)
[2018-04-19] MEDS ORDERED: Post-op Orders (for Pharmacy) OTHER STA (12:11)
--- NOTE | 2018-04-19 12:14 | P.OP ---
- Preoperative Diagnosis (1) Open fracture of left distal femur, type III, with routine healing (2) Degloving injury of left lower leg Date of procedure: 04/19/18 Procedure: Irrigation and debridement of left leg/tibia with application of wound VAC dressing Anesthesia: LAILA Surgeon: Ceferino Moore MD Operation and Findings: Juan schwarz operating today for treatment of left leg injury. Informed consent was confirmed and operative site was marked. He is brought the operating room. He was given IV sedation and general anesthesia. Left leg was prepped with alcohol followed Hibiclens and draped in usual sterile fashion. Timeout procedure was performed. Procedure began with debridement of the left leg. A portion of the soleus muscle flap was necrotic. The distal third of the muscle was excised. Curettes and rongeurs were used to perform excisional debridement. Curettes were used to clean bone. A large portion of the tibia is still exposed. After completion of excisional debridement, the wound was thoroughly irrigated with pulsatile lavage. At this point a VAC dressing was reapplied. VAC dressing was sealed appropriately. The seal was checked. Patient was awakened and transferred to recovery room in stable condition.
[2018-04-19] MEDS ORDERED: fentaNYL Citrate Inj 100 MCG/2 ML Ampul IV.PUSH ONE (12:44)
[2018-04-19] MEDS ORDERED: *Meperidine Inj 25 MG/ML Vial PERIprocedural Use ONLY ONE (13:20)
[2018-04-19] MEDS: Sod Chloride 0.9% Inj 1,000 ML IV.CONT SCH (16:50)
[2018-04-19] MEDS: ceFAZolin Inj 2,000 MG in Sodium Chlor 0.9% Inj 80 ML IV.SIG SCH (20:04)
[2018-04-20] MEDS: ceFAZolin Inj 2,000 MG in Sodium Chlor 0.9% Inj 80 ML IV.SIG SCH ×3 (04:23→21:40)
[2018-04-20 05:14] LABS: Baso # (Auto) 0.1 th/mm3 (0.0-0.2); Baso % (Auto) 0.4 % (0.0-2.0); Eos % (Auto) 0.3 % (0.0-4.0); Hematocrit 25.4 % (39.0-51.0); Hemoglobin 8.6 gm/dL (13.0-17.0); Lymph # (Auto) 1.9 th/mm3 (1.0-4.8); Lymph % (Auto) 14.6 % (9.0-44.0); Mean Corpuscular HGB Conc 33.7 % (32.0-36.0); Mean Corpuscular Hemoglobin 29.2 pg (27.0-34.0); Mean Corpuscular Volume 86.4 fL (80.0-100.0); Mono # (Auto) 1.4 th/mm3 (0.0-0.9); Mono % (Auto) 11.3 % (0.0-8.0); Neut # (Auto) 9.3 th/mm3 (1.8-7.7); Neut % (Auto) 73.4 % (16.0-70.0); Platelet Count 502 th/mm3 (150-450); Red Blood Count 2.94 mil/mm3 (4.50-5.90); Red Cell Distribution Width 15.5 % (11.6-17.2); White Blood Count 12.7 th/mm3 (4.0-11.0)
[2018-04-20 05:16] LABS: Calcium 8.6 mg/dL (8.5-10.1); Carbon Dioxide 29.3 meq/L (21.0-32.0); Potassium 4.6 meq/L (3.5-5.1)
[2018-04-20 06:19] LABS: Platelet Morphology Normal (Normal)
--- NOTE | 2018-04-20 07:03 | P.PNOP ---
Subjective Interval history: Resting comfortably with no new complaints Physical Exam Vital signs: Vital Signs 04/19/18 07:45 04/19/18 08:00 04/19/18 12:45 Temperature 98.9 F 99.5 F Pulse Rate 107 H 108 H Respiratory Rate 17 18 20 Blood Pressure 97/67 L 119/81 Pulse Oximetry 96 100 04/19/18 13:00 04/19/18 13:15 04/19/18 13:30 Temperature Pulse Rate 104 H 103 H 103 H Respiratory Rate 15 16 15 Blood Pressure 119/80 103/75 108/74 Pulse Oximetry 100 100 100 04/19/18 13:37 04/19/18 13:45 04/19/18 14:04 Temperature 99.2 F 97.6 F Pulse Rate 100 H 104 H Respiratory Rate 13 15 Blood Pressure 105/74 107/75 Pulse Oximetry 100 100 99 04/19/18 15:38 04/19/18 17:54 04/19/18 20:00 Temperature 98.3 F 99.0 F Pulse Rate 106 H 109 H Respiratory Rate 18 18 18 Blood Pressure 108/67 114/54 L Pulse Oximetry 93 L 95 04/19/18 23:40 04/20/18 00:00 04/20/18 04:00 Temperature 98.0 F 98.6 F Pulse Rate 90 110 H Respiratory Rate 17 18 18 Blood Pressure 111/69 119/81 Pulse Oximetry 95 98 Intake & Output 04/19/18 04/19/18 04/20/18 06:59 18:59 06:59 Intake Total 1050 / 1050 100 / 100 Output Total 1325 / 1325 800 / 800 1775 / 1775 Balance -1325 / -1325 250 / 250 -1675 / -1675 Weight 105 kg 105 kg Intake: IV 300 / 300 100 / 100 NS Inj 250 ML @ 0 mls/hr .ROUTE 250 / 250 .[facility] Rx#:[id number] Ancef 2 GM Premix Inj 2 gm In 50 / 50 50 ml @ 0 mls/hr IV.SIG .[facility]K- [facility] Rx#:[id number] Ancef Inj 2,000 MG In NS Inj 80 100 / 100 ML @ 200 mls/hr IV.SIG Q8H [facility] Rx#:[id number] Oral 750 / 750 Output: Urine 1325 / 1325 800 / 800 1775 / 1775 Other: Mode Setting Left Leg Continuous Continuous Continuous Date of Last Bowel Movement 04/18/18 04/18/18 04/18/18 # Bowel Movements 1 Narrative: Right upper extremity: No pain with shoulder elbow range of motion. Splint intact over hand. Intact sensation in all fingers. right lower extremity: Relatively large serous collection over the right hip. Does not appear to be infected or draining. No pain with knee range of motion. Short leg splint in place. Intact sensation in all toes with good capillary refills. Left lower extremity: No pain with hip range of motion. External fixator in place with wound VAC intact. Appropriate seal. Intact sensation distally in toes. Short leg splint in place with posterior and stirrup. - Urinary Catheter Management Indwelling Urethral Catheter Cath placed during this visit: yes, but has since been removed by the nurse Reason for continuing: Acute urinary retention Insertion date: 04/03/18 Insertion time: 14:10 Removal date: 04/07/18 Removal time: 09:30 Results - Labs CBC & Chem 7: 04/20/18 02:30 04/20/18 02:30 Laboratory Results - last 24 hr 04/20/18 04/20/18 02:30 02:30 WBC 12.7 H RBC 2.94 L Hgb 8.6 L Hct 25.4 L MCV 86.4 MCH 29.2 MCHC 33.7 RDW 15.5 Plt Count 502 H D MPV 7.0 Prelim Diff (Auto) Slide review pending Neut % (Auto) 73.4 H Lymph % (Auto) 14.6 Mathews % (Auto) 11.3 H Eos % (Auto) 0.3 Baso % (Auto) 0.4 Neut # (Auto) 9.3 H Lymph # (Auto) 1.9 Mathews # (Auto) 1.4 H Eos # (Auto) 0.0 Baso # (Auto) 0.1 WBC Differential . Diff Scan Auto diff confirmed Differential Comment . Platelet Estimate High H Platelet Morphology Normal Sodium 129 L Potassium 4.6 Chloride 95 L Carbon Dioxide 29.3 Anion Gap 5 BUN 22 H Creatinine 1.31 H Estimated GFR 69 L Random Glucose 118 H Calcium 8.6 Assessment and Plan - Assessment and Plan POD8 open reduction internal fixation of right Lisfranc fracture dislocations of foot and distal fibula fracture ORIF POD 10 s/p ORIF left distal lateral femur POD 10 s/p soleus muscle flap left leg, POD 4 Gastroc flap and vac change POD 15 s/p ORIF left ankle s/p right hand fx s/p left open leg wound Large serous collection right hip -continue to watch and let body reabsorb. It will take weeks to months to fully reabsorb Nonweightbearing bilateral lower extremities, nonweightbearing right hand NPO after midnight on Monday night for planned surgery on Monday maintain vac at all times left leg 100 mg of mercury with DPC 3:1 maintain splint right foot and hand will plan for repeat I&D with wound VAC change left leg Monday X-rays ordered today of right hand and left ankle
[2018-04-20] MEDS: Enoxaparin Inj 30 MG/0.3 ML Syringe SQ SCH ×2 (09:05→21:48)
[2018-04-20] MEDS: Lactobacillus Acidophilus/L. Spores Tablet PO SCH ×3 (09:05→17:23)
[2018-04-20] MEDS: Folic Acid 1 MG Tablet PO SCH (09:05)
[2018-04-20] MEDS: levoFLOXacin 750 MG Tablet PO SCH (09:05)
[2018-04-20] MEDS: Famotidine 20 MG Tablet PO SCH ×2 (09:06→21:46)
[2018-04-20] MEDS: Gabapentin 400 MG Capsule PO SCH ×3 (09:06→17:23)
[2018-04-20] MEDS: Senna/Docusate Sodium 8.6/50 MG Tablet PO SCH ×2 (09:06→21:55)
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
[2018-04-21] MEDS: ceFAZolin Inj 2,000 MG in Sodium Chlor 0.9% Inj 80 ML IV.SIG SCH ×2 (04:14→13:04)
--- NOTE | 2018-04-21 07:20 | P.PNOP ---
Subjective Interval history: Patient resting comfortably. No acute events Physical Exam Vital signs: Vital Signs 04/20/18 08:00 04/20/18 12:00 04/20/18 16:00 Temperature 98.2 F 98.4 F 97.8 F Pulse Rate 97 H 115 H 114 H Respiratory Rate 12 16 16 Blood Pressure 118/71 122/71 110/72 Pulse Oximetry 97 98 97 04/20/18 20:00 04/20/18 22:14 04/21/18 00:00 Temperature 99.5 F 98.2 F Pulse Rate 112 H 107 H Respiratory Rate 18 18 18 Blood Pressure 117/77 115/78 Pulse Oximetry 97 97 04/21/18 04:00 Temperature 99.4 F Pulse Rate 109 H Respiratory Rate 18 Blood Pressure 127/76 Pulse Oximetry 96 Intake & Output 04/20/18 04/21/18 04/21/18 18:59 06:59 18:59 Intake Total 1760 / 1760 200 / 200 Output Total 975 / 975 1575 / 1575 Balance 785 / 785 -1375 / -1375 Weight 105 kg Intake: IV 200 / 200 200 / 200 Ancef Inj 2,000 MG In NS Inj 80 200 / 200 200 / 200 ML @ 200 mls/hr IV.SIG Q8H [facility] Rx#:[id number] Oral 1560 / 1560 Output: Urine 975 / 975 1425 / 1425 Wound Drainage 150 / 150 Left Foot 150 / 150 Other: Mode Setting Left Leg Intermittent Date of Last Bowel Movement 04/18/18 # Bowel Movements 0 Narrative: Awake, alert, no acute distress Right lower extremity: Splint in place. Wiggle his toes. Brisk cap refill Left lower extremity: Ex-fix, splint and VAC in place. VAC with good seal. Brisk cap refill. - Urinary Catheter Management Indwelling Urethral Catheter Cath placed during this visit: yes, but has since been removed by the nurse Reason for continuing: Acute urinary retention Insertion date: 04/03/18 Insertion time: 14:10 Removal date: 04/07/18 Removal time: 09:30 Results - Labs CBC & Chem 7: 04/20/18 02:30 04/20/18 02:30 - Imaging Impressions Ankle X-Ray 04/20/18 00:00 CONCLUSION: Orthopedic hardware with good alignment. No significant change in the appearance of the fractures at this point. Hand X-Ray 04/20/18 00:00 CONCLUSION: No change in the fifth proximal phalangeal fracture. Assessment and Plan - Assessment and Plan POD9 open reduction internal fixation of right Lisfranc fracture dislocations of foot and distal fibula fracture ORIF POD 11 s/p ORIF left distal lateral femur POD 11 s/p soleus muscle flap left leg, POD 5 Gastroc flap and vac change POD 16 s/p ORIF left ankle s/p right hand fx s/p left open leg wound Large serous collection right hip -continue to watch and let body reabsorb. It will take weeks to months to fully reabsorb Nonweightbearing bilateral lower extremities, nonweightbearing right hand NPO after midnight on Monday night for planned surgery on Monday maintain vac at all times left leg 100 mg of mercury with DPC 3:1 maintain splint right foot and hand will plan for repeat I&D with wound VAC change left leg Monday X-rays ordered today of right hand and left ankle
[2018-04-21] MEDS: Enoxaparin Inj 30 MG/0.3 ML Syringe SQ SCH ×2 (08:41→22:09)
[2018-04-21] MEDS: Gabapentin 400 MG Capsule PO SCH ×3 (08:42→17:51)
[2018-04-21] MEDS: Lactobacillus Acidophilus/L. Spores Tablet PO SCH ×3 (08:42→17:52)
[2018-04-21] MEDS: Senna/Docusate Sodium 8.6/50 MG Tablet PO SCH ×2 (08:42→22:09)
[2018-04-21] MEDS: Folic Acid 1 MG Tablet PO SCH (08:42)
[2018-04-21] MEDS: Famotidine 20 MG Tablet PO SCH ×2 (08:42→22:09)
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
--- NOTE | 2018-04-22 06:54 | P.PNOP ---
Subjective Interval history: Resting comfortably this morning. Reports pain relatively well controlled Physical Exam Vital signs: Vital Signs 04/21/18 08:00 04/21/18 12:00 04/21/18 16:00 Temperature 100.2 F H 98.2 F 99.4 F Pulse Rate 105 H 108 H 108 H Respiratory Rate 16 16 18 Blood Pressure 118/78 113/79 133/80 Pulse Oximetry 94 L 93 L 96 04/21/18 20:00 04/22/18 00:00 Temperature 98.4 F 98.4 F Pulse Rate 115 H 109 H Respiratory Rate 18 17 Blood Pressure 115/68 120/71 Pulse Oximetry 97 97 Intake & Output 04/21/18 04/21/18 04/22/18 06:59 18:59 06:59 Intake Total 200 / 200 1180 / 1180 1680 / 1680 Output Total 1575 / 1575 65 / 65 1350 / 1350 Balance -1375 / -1375 1115 / 1115 330 / 330 Weight 105 kg 99.3 kg Intake: IV 200 / 200 100 / 100 Ancef Inj 2,000 MG In NS Inj 80 200 / 200 100 / 100 ML @ 200 mls/hr IV.SIG Q8H DEEPA Rx#:[id number] Oral 1080 / 1080 1680 / 1680 Output: Urine 1425 / 1425 1275 / 1275 Wound Drainage 150 / 150 65 / 65 75 / 75 Left Foot 150 / 150 65 / 65 75 / 75 Other: Mode Setting Right lateral Posterior thigh Intermittent # Voids 4 Date of Last Bowel Movement 04/18/18 04/18/18 04/21/18 # Bowel Movements 1 Narrative: Awake, alert, no acute distress Right lower extremity: Splint in place. Patient wiggles toes and has brisk cap refill. Left lower extremity: Splint, ex-fix and wound VAC in place. Wound VAC with good seal. Patient wiggles toes and has brisk cap refill. - Urinary Catheter Management Indwelling Urethral Catheter Cath placed during this visit: yes, but has since been removed by the nurse Reason for continuing: Acute urinary retention Insertion date: 04/03/18 Insertion time: 14:10 Removal date: 04/07/18 Removal time: 09:30 Results - Labs CBC & Chem 7: 04/20/18 02:30 04/20/18 02:30 Assessment and Plan - Assessment and Plan POD10 open reduction internal fixation of right Lisfranc fracture dislocations of foot and distal fibula fracture ORIF POD 12 s/p ORIF left distal lateral femur POD 12 s/p soleus muscle flap left leg, POD 6 Gastroc flap and vac change POD 17 s/p ORIF left ankle s/p right hand fx s/p left open leg wound Large serous collection right hip -continue to watch and let body reabsorb. It will take weeks to months to fully reabsorb Nonweightbearing bilateral lower extremities, nonweightbearing right hand NPO after midnight on Monday night for planned surgery on Monday maintain vac at all times left leg 100 mg of mercury with DPC 3:1 maintain splint right foot and hand will plan for repeat I&D with wound VAC change left leg Monday X-rays ordered today of right hand and left ankle
[2018-04-22] MEDS: Famotidine 20 MG Tablet PO SCH ×2 (08:46→21:04)
[2018-04-22] MEDS: Folic Acid 1 MG Tablet PO SCH (08:46)
[2018-04-22] MEDS: Lactobacillus Acidophilus/L. Spores Tablet PO SCH ×3 (08:46→18:05)
[2018-04-22] MEDS: Gabapentin 400 MG Capsule PO SCH ×3 (08:46→18:05)
[2018-04-22] MEDS: Senna/Docusate Sodium 8.6/50 MG Tablet PO SCH ×2 (08:46→21:04)
[2018-04-22] MEDS: Enoxaparin Inj 30 MG/0.3 ML Syringe SQ SCH ×2 (08:46→21:04)
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
[2018-04-22] MEDS: Nystatin/Diphenhydramine/Lidocaine Mouthwash (Adult) 120 ML Botttle SWISH-SWAL SCH ×4 (18:05→21:06)
--- NOTE | 2018-04-23 06:54 | P.PNOP ---
Subjective Interval history: Resting comfortably Physical Exam Vital signs: Vital Signs 04/22/18 08:00 04/22/18 12:00 04/22/18 16:00 Temperature 98.4 F 98.4 F 98.7 F Pulse Rate 109 H 108 H 110 H Respiratory Rate 16 16 16 Blood Pressure 111/69 109/67 115/72 Pulse Oximetry 95 98 97 04/22/18 20:00 04/23/18 00:00 Temperature 99.3 F 99.1 F Pulse Rate 122 H 112 H Respiratory Rate 18 18 Blood Pressure 130/75 113/66 Pulse Oximetry 95 98 Intake & Output 04/22/18 04/22/18 04/23/18 06:59 18:59 06:59 Intake Total 1680 / 1680 1260 / 1260 Output Total 1350 / 1350 65 / 65 1700 / 1700 Balance 330 / 330 -65 / -65 -440 / -440 Weight 99.3 kg Intake: Oral 1680 / 1680 1260 / 1260 Output: Urine 1275 / 1275 1550 / 1550 Wound Drainage 75 / 75 65 / 65 150 / 150 Left Foot 75 / 75 65 / 65 150 / 150 Other: Mode Setting Left Leg Intermittent Intermittent Right lateral Posterior thigh Intermittent # Voids 1 Date of Last Bowel Movement 04/21/18 04/21/18 04/21/18 Narrative: Right upper extremity: No pain with shoulder elbow range of motion. Splint intact over hand. Intact sensation in all fingers. right lower extremity: Relatively large serous collection over the right hip. Does not appear to be infected or draining. No pain with knee range of motion. Short leg splint in place. Intact sensation in all toes with good capillary refills. Left lower extremity: No pain with hip range of motion. External fixator in place with wound VAC intact. Appropriate seal. Intact sensation distally in toes. Short leg splint in place with posterior and stirrup. - Urinary Catheter Management Indwelling Urethral Catheter Cath placed during this visit: yes, but has since been removed by the nurse Reason for continuing: Acute urinary retention Insertion date: 04/03/18 Insertion time: 14:10 Removal date: 04/07/18 Removal time: 09:30 Results - Labs CBC & Chem 7: 04/20/18 02:30 04/20/18 02:30 Assessment and Plan - Assessment and Plan POD13 open reduction internal fixation of right Lisfranc fracture dislocations of foot and distal fibula fracture ORIF POD 15 s/p ORIF left distal lateral femur POD 15 s/p soleus muscle flap left leg, POD 9 Gastroc flap and vac change POD 20 s/p ORIF left ankle s/p right hand fx s/p left open leg wound Large serous collection right hip -continue to watch and let body reabsorb. It will take weeks to months to fully reabsorb Nonweightbearing bilateral lower extremities, nonweightbearing right hand NPO after midnight on Monday night for planned surgery on Monday maintain vac at all times left leg 100 mg of mercury with DPC 3:1 maintain splint right foot and hand will plan for repeat I&D with wound VAC change left leg Monday X-rays ordered today of right hand and left ankle
[2018-04-23 07:11] LABS: Baso # (Auto) 0.1 th/mm3 (0.0-0.2); Baso % (Auto) 0.8 % (0.0-2.0); Eos # (Auto) 0.3 th/mm3 (0.0-0.4); Eos % (Auto) 4.3 % (0.0-4.0); Hematocrit 26.5 % (39.0-51.0); Hemoglobin 8.7 gm/dL (13.0-17.0); Lymph # (Auto) 2.1 th/mm3 (1.0-4.8); Lymph % (Auto) 25.6 % (9.0-44.0); Mean Corpuscular HGB Conc 32.8 % (32.0-36.0); Mean Corpuscular Hemoglobin 28.8 pg (27.0-34.0); Mean Corpuscular Volume 87.7 fL (80.0-100.0); Mean Platelet Volume 7.1 fL (7.0-11.0); Mono # (Auto) 1.1 th/mm3 (0.0-0.9); Mono % (Auto) 13.9 % (0.0-8.0); Neut # (Auto) 4.5 th/mm3 (1.8-7.7); Neut % (Auto) 55.4 % (16.0-70.0); Platelet Count 412 th/mm3 (150-450); Red Blood Count 3.02 mil/mm3 (4.50-5.90); Red Cell Distribution Width 15.6 % (11.6-17.2); White Blood Count 8.1 th/mm3 (4.0-11.0)
[2018-04-23 07:37] LABS: Alkaline Phosphatase 104 U/L (45-117)
[2018-04-23 07:39] LABS: Alanine Aminotransferase 14 U/L (12-78); Albumin 1.9 g/dL (3.4-5.0); Anion Gap 8 meq/L (5-15); Aspartate Aminotransferase 34 U/L (15-37); Blood Urea Nitrogen 12 mg/dL (7-18); Calcium 8.5 mg/dL (8.5-10.1); Carbon Dioxide 30.1 meq/L (21.0-32.0); Chloride 97 meq/L (98-107); Glomerular Filtration Rate 88 mL/min (>89); Glucose,Random 94 mg/dL (74-106); Potassium 4.8 meq/L (3.5-5.1); Sodium 135 meq/L (136-145)
[2018-04-23 08:27] LABS: Eosinophils 7 % (0-4); Lymphocytes 29 % (9-44); Metamyelocytes 2 % (0-1); Monocytes 6 % (0-8); Myelocytes 1 % (0-0)
[2018-04-23 08:28] LABS: Platelet Estimate Normal (Normal); Platelet Morphology Normal (Normal)
[2018-04-23] MEDS: Lactobacillus Acidophilus/L. Spores Tablet PO SCH ×3 (09:17→17:41)
[2018-04-23] MEDS: Enoxaparin Inj 30 MG/0.3 ML Syringe SQ SCH ×2 (09:17→23:34)
[2018-04-23] MEDS: Famotidine 20 MG Tablet PO SCH ×2 (09:17→20:48)
[2018-04-23] MEDS: Nystatin/Diphenhydramine/Lidocaine Mouthwash (Adult) 120 ML Botttle SWISH-SWAL SCH ×4 (09:17→20:50)
[2018-04-23] MEDS: Senna/Docusate Sodium 8.6/50 MG Tablet PO SCH ×2 (09:17→20:48)
[2018-04-23] MEDS: Gabapentin 400 MG Capsule PO SCH ×3 (09:18→17:41)
[2018-04-23] MEDS: Folic Acid 1 MG Tablet PO SCH (09:18)
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
--- NOTE | 2018-04-23 12:24 | P.PNREH ---
Subjective Interval history: Reports that he was up to chair for 2 hours. No constipation. No difficulty urinating. Eating well. Shift position q 2 hours for pressure relief. Exam - Physical Examination Vital Signs / I&O: Vital Signs 04/22/18 16:00 04/22/18 20:00 04/23/18 00:00 Temperature 98.7 F 99.3 F 99.1 F Pulse Rate 110 H 122 H 112 H Respiratory Rate 16 18 18 Blood Pressure 115/72 130/75 113/66 Pulse Oximetry 97 95 98 04/23/18 08:00 Temperature 98.8 F Pulse Rate 113 H Respiratory Rate 18 Blood Pressure 137/78 Pulse Oximetry 97 Intake & Output 04/22/18 04/23/18 04/23/18 18:59 06:59 18:59 Intake Total 1260 / 1260 Output Total 65 / 65 1700 / 1700 Balance -65 / -65 -440 / -440 Intake: Oral 1260 / 1260 Output: Urine 1550 / 1550 Wound Drainage 65 / 65 150 / 150 Left Foot 65 / 65 150 / 150 Other: Mode Setting Left Leg Intermittent Intermittent Continuous Right lateral Posterior thigh Intermittent # Voids 1 Date of Last Bowel Movement 04/21/18 04/21/18 Intake & Output 04/21/18 04/22/18 04/23/18 04/24/18 06:59 06:59 06:59 06:59 Intake Total 1960 / 1960 2860 / 2860 1260 / 1260 Output Total 2550 / 2550 1415 / 1415 1765 / 1765 Balance -590 / -590 1445 / 1445 -505 / -505 Weight 105 kg 99.3 kg General: No acute distress, Other (Awake and alert; resting comfortably in bed) Date of Last Bowel Movement: 04/21/18 Psychiatric: Cooperative, Appropriate mood & affect - Neurologic Orientation: oriented to: Self, Situation Neurologic: Speech (Clear) Motor: Right Upper Extremity (5/5), Left Upper Extremity (5/5), Right Lower Extremity (Splint in place and moves toes to command with intact sensation), Left Lower Extremity ( External fixator in place with VAC;moves toes to command with intact sensation) Objective Laboratory Results - last 24 hr 04/23/18 04/23/18 03:40 03:40 WBC 8.1 RBC 3.02 L Hgb 8.7 L Hct 26.5 L MCV 87.7 MCH 28.8 MCHC 32.8 RDW 15.6 Plt Count 412 MPV 7.1 Prelim Diff (Auto) Slide review pending Neut % (Auto) 55.4 Lymph % (Auto) 25.6 [place] % (Auto) 13.9 H Eos % (Auto) 4.3 H Baso % (Auto) 0.8 Neut # (Auto) 4.5 Lymph # (Auto) 2.1 [place] # (Auto) 1.1 H Eos # (Auto) 0.3 Baso # (Auto) 0.1 WBC Differential Manual diff final Seg Neuts % (Manual) 51 Band Neuts % (Manual) 4 Lymphocytes % (Manual) 29 Monocytes % (Manual) 6 Eosinophils % (Manual) 7 H Metamyelocytes % (Man) 2 H Myelocytes % (Man) 1 H Abs Neuts (Manual) 4.7 Differential Comment . Platelet Estimate Normal Platelet Morphology Normal Sodium 135 L Potassium 4.8 Chloride 97 L Carbon Dioxide 30.1 Anion Gap 8 BUN 12 Creatinine 1.06 Estimated GFR 88 L Random Glucose 94 Calcium 8.5 Total Bilirubin 0.3 AST 34 ALT 14 Alkaline Phosphatase 104 Total Protein 7.0 Albumin 1.9 L Assessment and Plan (1) Multiple fractures Status: Acute Code(s): T07.XXXA - Unspecified multiple injuries, initial encounter - Plan 1. Continue to mobilize out of bed to bedside chair. Patient is now tolerating 2 hours up in chair 2. Physical therapy is addressing transfer training 3. Will continue to follow for ongoing rehab needs. Case management is assisting with discharge planning.
[2018-04-23] MEDS ORDERED: Chlorhexidine Gluconate 2% 1 Pack (2 Cloths) TOPICAL ONE (22:59)
[2018-04-23] MEDS ORDERED: Sodium Chlor 0.9% Inj 500 ML IV.SIG SCH (23:00)
--- NOTE | 2018-04-24 06:46 | P.PNOP ---
Subjective Interval history: Resting comfortably with no new complaints Physical Exam Vital signs: Vital Signs 04/23/18 08:00 04/23/18 12:00 04/23/18 16:00 Temperature 98.8 F 98.8 F 98.4 F Pulse Rate 113 H 111 H 111 H Respiratory Rate 18 16 18 Blood Pressure 137/78 102/70 101/63 Pulse Oximetry 97 97 97 04/23/18 20:00 04/23/18 23:27 04/24/18 04:00 Temperature 98.8 F 99.6 F 99.2 F Pulse Rate 100 H 100 H 106 H Respiratory Rate 16 16 16 Blood Pressure 119/80 138/58 L 118/64 Pulse Oximetry 98 97 96 04/24/18 06:14 Temperature Pulse Rate Respiratory Rate 18 Blood Pressure Pulse Oximetry Intake & Output 04/23/18 04/23/18 04/24/18 06:59 18:59 06:59 Intake Total 1260 / 1260 0 / 0 Output Total 1700 / 1700 400 / 400 1000 / 1000 Balance -440 / -440 -400 / -400 -1000 / -1000 Weight 99.3 kg Intake: Oral 1260 / 1260 0 / 0 Output: Urine 1550 / 1550 1000 / 1000 Wound Drainage 150 / 150 400 / 400 Left Foot 150 / 150 400 / 400 Other: Mode Setting Left Leg Intermittent Continuous Continuous # Voids 1 3 Date of Last Bowel Movement 04/21/18 04/21/18 04/21/18 Narrative: Right upper extremity: No pain with shoulder elbow range of motion. Splint intact over hand. Intact sensation in all fingers. Right lower extremity: Relatively large serous collection over the right hip. Does not appear to be infected or draining. No pain with knee range of motion. Short leg splint in place. Intact sensation in all toes with good capillary refills. Left lower extremity: No pain with hip range of motion. External fixator in place with wound VAC intact. Appropriate seal. Intact sensation distally in toes. Short leg splint in place with posterior and stirrup. - Urinary Catheter Management Indwelling Urethral Catheter Cath placed during this visit: yes, but has since been removed by the nurse Reason for continuing: Acute urinary retention Insertion date: 04/03/18 Insertion time: 14:10 Removal date: 04/07/18 Removal time: 09:30 Results - Labs CBC & Chem 7: 04/23/18 03:40 04/23/18 03:40 Laboratory Results - last 24 hr 04/23/18 04/23/18 03:40 03:40 WBC 8.1 RBC 3.02 L Hgb 8.7 L Hct 26.5 L MCV 87.7 MCH 28.8 MCHC 32.8 RDW 15.6 Plt Count 412 MPV 7.1 Prelim Diff (Auto) Slide review pending Neut % (Auto) 55.4 Lymph % (Auto) 25.6 [place] % (Auto) 13.9 H Eos % (Auto) 4.3 H Baso % (Auto) 0.8 Neut # (Auto) 4.5 Lymph # (Auto) 2.1 [place] # (Auto) 1.1 H Eos # (Auto) 0.3 Baso # (Auto) 0.1 WBC Differential Manual diff final Seg Neuts % (Manual) 51 Band Neuts % (Manual) 4 Lymphocytes % (Manual) 29 Monocytes % (Manual) 6 Eosinophils % (Manual) 7 H Metamyelocytes % (Man) 2 H Myelocytes % (Man) 1 H Abs Neuts (Manual) 4.7 Differential Comment . Platelet Estimate Normal Platelet Morphology Normal Sodium 135 L Potassium 4.8 Chloride 97 L Carbon Dioxide 30.1 Anion Gap 8 BUN 12 Creatinine 1.06 Estimated GFR 88 L Random Glucose 94 Calcium 8.5 Total Bilirubin 0.3 AST 34 ALT 14 Alkaline Phosphatase 104 Total Protein 7.0 Albumin 1.9 L Microbiology 04/22/18 17:05 Throat Throat Culture - Preliminary Assessment and Plan - Assessment and Plan POD14 open reduction internal fixation of right Lisfranc fracture dislocations of foot and distal fibula fracture ORIF POD 16 s/p ORIF left distal lateral femur POD 16 s/p soleus muscle flap left leg, POD 10 Gastroc flap and vac change POD 21 s/p ORIF left ankle s/p right hand fx s/p left open leg wound Large serous collection right hip -continue to watch and let body reabsorb. It will take weeks to months to fully reabsorb Nonweightbearing bilateral lower extremities, nonweightbearing right hand NPO maintain vac at all times left leg 100 mg of mercury with DPC 3:1 maintain splint right foot and hand will plan for repeat I&D with wound VAC change left leg Monday X-rays ordered today of right hand and left ankle
[2018-04-24] MEDS: Lactobacillus Acidophilus/L. Spores Tablet PO SCH ×3 (09:34→20:03)
[2018-04-24] MEDS: Folic Acid 1 MG Tablet PO SCH (09:34)
[2018-04-24] MEDS: Enoxaparin Inj 30 MG/0.3 ML Syringe SQ SCH ×2 (09:34→20:03)
[2018-04-24] MEDS: Senna/Docusate Sodium 8.6/50 MG Tablet PO SCH ×2 (09:35→20:02)
[2018-04-24] MEDS: Gabapentin 400 MG Capsule PO SCH ×3 (09:35→20:02)
[2018-04-24] MEDS: Nystatin/Diphenhydramine/Lidocaine Mouthwash (Adult) 120 ML Botttle SWISH-SWAL SCH ×4 (09:35→21:25)
[2018-04-24] MEDS: Famotidine 20 MG Tablet PO SCH ×2 (09:35→20:03)
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
[2018-04-24] MEDS ORDERED: Esmolol Bolus Inj 100 MG/10 ML Vial IV.PUSH ONE (15:59)
[2018-04-24] MEDS ORDERED: Lidocaine PF 1% Inj 5 ML Syringe OTHER ONE (15:59)
[2018-04-24] MEDS ORDERED: Post-op Orders (for Pharmacy) OTHER STA (16:50)
--- NOTE | 2018-04-24 17:07 | P.OP ---
- Preoperative Diagnosis (1) Open fracture of left distal femur, type III, with routine healing (2) Degloving injury of left lower leg Date of procedure: 04/24/18 Anesthesia: GETA Surgeon: Ceferino Moore MD Layout Worker: Mark Banks PA-C The surgical procedure was assisted by my physician server assistant. My P.A. presence was necessary throughout this case for the manipulation and positioning of the surgical extremity. My P.A. was assisting me throughout the duration of this procedure. The skill set of a physician server assistant was medically necessary to complete this procedure. During the surgical case the electrical manufacturing technician was working at the back table and the physician server assistant was directly assisting me. Operation and Findings: Juan schwarz operating today for treatment of left leg injury. Informed consent was confirmed and operative site was marked. He is brought the operating room. He was given IV sedation and general anesthesia. Left leg was prepped with alcohol followed Hibiclens and draped in usual sterile fashion. Timeout procedure was performed. Procedure began with debridement of the left leg. Overall the wound appeared to be healthy. Curettes and rongeurs were used to perform excisional debridement. Curettes were used to clean bone. A large portion of the tibia is still exposed. After completion of excisional debridement, the wound was thoroughly irrigated with sterile saline. At this point the wound was covered with AlloMax dermal graft. The graft was cut to fit the wound. The graft was gently sutured in place. The graft was now covered with Adaptic.. At this point a VAC dressing was reapplied. VAC dressing was sealed appropriately. The seal was checked. Patient was awakened and transferred to recovery room in stable condition.
[2018-04-24] MEDS ORDERED: *morphine SULFATE 4 MG/ML PERIprocedure ONLY ONE (18:07)
--- NOTE | 2018-04-25 06:37 | P.PNOP ---
Subjective Interval history: POD 1 s/p I&D left leg with alloderm graft placement POd 13 s/p ORIF right foot POD 15 soleus flap POD 15 ORIF left femur POD 20 ORIF left ankle s/p right hand fx doing well. no changes. resting comfortably Physical Exam Vital signs: Vital Signs 04/24/18 07:41 04/24/18 07:46 04/24/18 12:00 Temperature 99.0 F 98.5 F Pulse Rate 105 H 103 H Respiratory Rate 14 17 18 Blood Pressure 120/69 108/68 Pulse Oximetry 98 97 04/24/18 17:19 04/24/18 17:30 04/24/18 17:45 Temperature 97.5 F L 98.0 F 98.0 F Pulse Rate 99 H 96 H 98 H Respiratory Rate 14 14 14 Blood Pressure 129/86 116/72 116/70 Pulse Oximetry 94 L 97 95 04/24/18 18:17 04/24/18 20:00 04/24/18 20:26 Temperature 98.0 F 98.3 F Pulse Rate 97 H 117 H Respiratory Rate 14 18 18 Blood Pressure 116/72 139/86 Pulse Oximetry 95 96 04/24/18 21:10 04/25/18 00:00 04/25/18 04:00 Temperature 99.3 F 100.2 F H Pulse Rate 115 H 122 H Respiratory Rate 18 18 Blood Pressure 110/66 115/74 Pulse Oximetry 99 98 94 L 04/25/18 04:13 Temperature Pulse Rate Respiratory Rate 18 Blood Pressure Pulse Oximetry Intake & Output 04/24/18 04/24/18 04/25/18 06:59 18:59 06:59 Intake Total 0 / 0 900 / 900 Output Total 1100 / 1100 425 / 425 950 / 950 Balance -1100 / -1100 475 / 475 -950 / -950 Weight 99.3 kg 99 kg Intake: Oral 0 / 0 Anesthesia Amount 900 / 900 Output: Urine 1000 / 1000 300 / 300 950 / 950 Estimated Blood Loss 25 / 25 Wound Drainage 100 / 100 100 / 100 Left Foot 100 / 100 100 / 100 Other: Mode Setting Left Leg Continuous Intermittent Intermittent # Voids 2 Date of Last Bowel Movement 04/21/18 04/21/18 04/21/18 Narrative: LLE: +exfix. +vac. good seal. nvi. dressings clean and dry RLE: +short leg splint intact. nvi - Urinary Catheter Management Indwelling Urethral Catheter Cath placed during this visit: yes, but has since been removed by the nurse Reason for continuing: Acute urinary retention Insertion date: 04/03/18 Insertion time: 14:10 Removal date: 04/07/18 Removal time: 09:30 Results - Labs CBC & Chem 7: 04/23/18 03:40 04/23/18 03:40 Microbiology 04/22/18 17:05 Throat Throat Culture - Final Assessment and Plan - Assessment and Plan POD13 open reduction internal fixation of right Lisfranc fracture dislocations of foot and distal fibula fracture ORIF POD 15 s/p ORIF left distal lateral femur POD 15 s/p soleus muscle flap left leg, POD 10 Gastroc flap and vac change POD 20 s/p ORIF left ankle s/p right hand fx s/p left open leg wound Large serous collection right hip -continue to watch and let body reabsorb. It will take weeks to months to fully reabsorb Nonweightbearing bilateral lower extremities, nonweightbearing right hand regular diet due to minimal granulation tissue intra-op, will consult dietary services maintain vac at all times left leg 125 mmHg with DPC 3:1 maintain splint right foot and hand will plan to maintain vac on left leg til monday
[2018-04-25] MEDS: Famotidine 20 MG Tablet PO SCH ×2 (09:38→21:05)
[2018-04-25] MEDS: Gabapentin 400 MG Capsule PO SCH ×3 (09:38→18:32)
[2018-04-25] MEDS: Senna/Docusate Sodium 8.6/50 MG Tablet PO SCH ×2 (09:39→21:07)
[2018-04-25] MEDS: Lactobacillus Acidophilus/L. Spores Tablet PO SCH ×3 (09:39→18:32)
[2018-04-25] MEDS: Folic Acid 1 MG Tablet PO SCH (09:40)
[2018-04-25] MEDS: Nystatin/Diphenhydramine/Lidocaine Mouthwash (Adult) 120 ML Botttle SWISH-SWAL SCH ×4 (09:49→21:06)
[2018-04-25] MEDS: Enoxaparin Inj 30 MG/0.3 ML Syringe SQ SCH ×2 (09:50→21:06)
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
[2018-04-26 05:03] LABS: Anion Gap 8 meq/L (5-15); Blood Urea Nitrogen 9 mg/dL (7-18); Calcium 7.9 mg/dL (8.5-10.1); Carbon Dioxide 30.1 meq/L (21.0-32.0); Chloride 97 meq/L (98-107); Glomerular Filtration Rate Greater Than 89 mL/min (>89); Glucose,Random 108 mg/dL (74-106); Potassium 4.4 meq/L (3.5-5.1); Sodium 135 meq/L (136-145)
--- NOTE | 2018-04-26 06:37 | P.PNOP ---
Subjective Interval history: POD 2 s/p I&D left leg with alloderm graft POD 14 s/p ORIF right foot POD 16 s/p ORIF left distal femur POD 16 s/p soleus flap left leg POD 21 s/p ORIF right foot s/p right hand fx doing well. no changes. Physical Exam Vital signs: Vital Signs 04/25/18 08:00 04/25/18 12:00 04/25/18 16:00 Temperature 97.5 F L 98.3 F 98.8 F Pulse Rate 124 H 116 H 119 H Respiratory Rate 18 18 15 Blood Pressure 116/70 125/70 115/61 Pulse Oximetry 96 98 98 04/25/18 20:00 04/26/18 00:00 Temperature 99.2 F 99.4 F Pulse Rate 119 H 108 H Respiratory Rate 17 16 Blood Pressure 107/60 118/70 Pulse Oximetry 97 94 L Intake & Output 04/25/18 04/25/18 04/26/18 06:59 18:59 06:59 Intake Total 1480 / 1480 Output Total 1050 / 1050 1000 / 1000 1175 / 1175 Balance -1050 / -1050 -1000 / -1000 305 / 305 Weight 99 kg Intake: IV 1000 / 1000 Oral 480 / 480 Output: Urine 950 / 950 1000 / 1000 1175 / 1175 Wound Drainage 100 / 100 Left Foot 100 / 100 Other: Mode Setting Left Leg Intermittent Intermittent Continuous # Voids 2 Date of Last Bowel Movement 04/21/18 04/25/18 04/25/18 # Bowel Movements 1 Narrative: LLE: +exfix. +vac. good seal. nvi. RLE: +splint. intact . - Urinary Catheter Management Indwelling Urethral Catheter Cath placed during this visit: yes, but has since been removed by the nurse Reason for continuing: Acute urinary retention Insertion date: 04/03/18 Insertion time: 14:10 Removal date: 04/07/18 Removal time: 09:30 Results - Labs CBC & Chem 7: 04/23/18 03:40 04/26/18 04:13 Laboratory Results - last 24 hr 04/20/18 04/26/18 03:16 04:13 Sodium 135 L Potassium 4.4 Chloride 97 L Carbon Dioxide 30.1 Anion Gap 8 BUN 9 Creatinine 0.98 Estimated GFR Greater than 89 Random Glucose 108 H Calcium 7.9 L Vit D 1,25-Dihydroxy 29 Assessment and Plan - Assessment and Plan POD14 open reduction internal fixation of right Lisfranc fracture dislocations of foot and distal fibula fracture ORIF POD 16 s/p ORIF left distal lateral femur POD 16 s/p soleus muscle flap left leg, POD 10 Gastroc flap and vac change POD 21 s/p ORIF left ankle s/p right hand fx s/p left open leg wound Large serous collection right hip -continue to watch and let body reabsorb. It will take weeks to months to fully reabsorb Nonweightbearing bilateral lower extremities, nonweightbearing right hand regular diet due to minimal granulation tissue intra-op, will consult dietary services maintain vac at all times left leg 125 mmHg with DPC 3:1 maintain splint right foot and hand will plan to maintain vac on left leg til monday will order xrays today of right foot and left knee
[2018-04-26 08:38] LABS: Baso # (Auto) 0.1 th/mm3 (0.0-0.2); Baso % (Auto) 0.9 % (0.0-2.0); Eos # (Auto) 0.4 th/mm3 (0.0-0.4); Eos % (Auto) 5.6 % (0.0-4.0); Hematocrit 25.2 % (39.0-51.0); Hemoglobin 8.4 gm/dL (13.0-17.0); Lymph # (Auto) 2.1 th/mm3 (1.0-4.8); Lymph % (Auto) 26.6 % (9.0-44.0); Mean Corpuscular HGB Conc 33.2 % (32.0-36.0); Mean Corpuscular Hemoglobin 28.9 pg (27.0-34.0); Mean Corpuscular Volume 87.1 fL (80.0-100.0); Mono # (Auto) 0.9 th/mm3 (0.0-0.9); Mono % (Auto) 10.8 % (0.0-8.0); Neut # (Auto) 4.4 th/mm3 (1.8-7.7); Neut % (Auto) 56.1 % (16.0-70.0); Platelet Count 305 th/mm3 (150-450); Red Blood Count 2.89 mil/mm3 (4.50-5.90); Red Cell Distribution Width 16.1 % (11.6-17.2); White Blood Count 7.9 th/mm3 (4.0-11.0)
[2018-04-26] MEDS: Gabapentin 400 MG Capsule PO SCH ×3 (08:52→17:01)
[2018-04-26] MEDS: Folic Acid 1 MG Tablet PO SCH (08:52)
[2018-04-26] MEDS: Enoxaparin Inj 30 MG/0.3 ML Syringe SQ SCH ×2 (08:53→21:26)
[2018-04-26] MEDS: Lactobacillus Acidophilus/L. Spores Tablet PO SCH ×3 (08:53→17:01)
[2018-04-26] MEDS: Senna/Docusate Sodium 8.6/50 MG Tablet PO SCH ×2 (08:53→21:26)
[2018-04-26] MEDS: Famotidine 20 MG Tablet PO SCH ×2 (08:53→21:26)
[2018-04-26] MEDS: Nystatin/Diphenhydramine/Lidocaine Mouthwash (Adult) 120 ML Botttle SWISH-SWAL SCH ×3 (08:54→18:38)
--- NOTE | 2018-04-26 10:17 | XR ---
EXAM DATE: 04/26/2018 12:00 AM EDT AGE/SEX: 57 years / Male INDICATIONS: Evaluate right foot fracture. CLINICAL DATA: This is the patient's initial encounter. Patient reports that signs and symptoms have been present for 1 week and indicates a pain score of 5/10. MEDICAL/SURGICAL HISTORY: . . ORIF right foot. ORIF left knee. COMPARISON: [facility] – [place], [place] FOOT RIGHT W/O CONTRAST, 04/05/2018. . FINDINGS: Lateral plate and screw fixation of the distal fibula is noted. There are external fixation pins alexis ersing the third and fourth metatarsals, cuboid, and lateral cuneiform. Screws are seen traversing th e medial, middle cuneiforms and base of first and second metatarsals were comminuted fragments are se en. There are fractures also noted of the fourth proximal phalanx, comminuted. Splint artifact limits osseous detail. CONCLUSION: Postoperative changes are seen with external fixation and internal fixation hardware seen across mult iple fractures. Electronically signed by: Dewayne Avalos MD 04/26/2018 10:16 AM EDT
--- NOTE | 2018-04-26 10:19 | XR ---
EXAM DATE: 04/26/2018 12:00 AM EDT AGE/SEX: 57 years / Male INDICATIONS: Evaluate left knee fracture. CLINICAL DATA: This is the patient's subsequent encounter. Patient reports that signs and symptoms h ave been present for 1 week and indicates a pain score of 5/10. MEDICAL/SURGICAL HISTORY: . ORIF right foot. ORIF left knee. . COMPARISON: [facility] – [place], [place] KNEE LEFT W/O CONTRAST, 04/03/2018. . FINDINGS: Skin sunny are noted and soft tissue swelling is seen. 3 screws traverse the lateral femoral condyl e with excellent alignment of the comminuted left distal femur fracture. No significant effusion. No dislocation. CONCLUSION: Postop changes left knee with soft tissue swelling and hardware placement. Excellent alignment of the distal femur fracture. Electronically signed by: Dewayne Avalos MD 04/26/2018 10:17 AM EDT
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
[2018-04-27] MEDS: Nystatin/Diphenhydramine/Lidocaine Mouthwash (Adult) 120 ML Botttle SWISH-SWAL SCH ×2 (00:31→09:09)
[2018-04-27] MEDS: Gabapentin 400 MG Capsule PO SCH ×3 (09:08→17:44)
[2018-04-27] MEDS: Enoxaparin Inj 30 MG/0.3 ML Syringe SQ SCH ×2 (09:08→22:20)
[2018-04-27] MEDS: Senna/Docusate Sodium 8.6/50 MG Tablet PO SCH ×2 (09:08→22:19)
[2018-04-27] MEDS: Lactobacillus Acidophilus/L. Spores Tablet PO SCH ×3 (09:08→17:44)
[2018-04-27] MEDS: Folic Acid 1 MG Tablet PO SCH (09:08)
[2018-04-27] MEDS: Famotidine 20 MG Tablet PO SCH ×2 (09:08→22:20)
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
[2018-04-28] MEDS: Senna/Docusate Sodium 8.6/50 MG Tablet PO SCH ×2 (09:08→21:47)
[2018-04-28] MEDS: Lactobacillus Acidophilus/L. Spores Tablet PO SCH ×3 (09:08→17:29)
[2018-04-28] MEDS: Folic Acid 1 MG Tablet PO SCH (09:08)
[2018-04-28] MEDS: Famotidine 20 MG Tablet PO SCH ×2 (09:08→21:47)
[2018-04-28] MEDS: Enoxaparin Inj 30 MG/0.3 ML Syringe SQ SCH ×2 (09:08→21:48)
[2018-04-28] MEDS: Gabapentin 400 MG Capsule PO SCH ×3 (09:08→17:29)
[2018-04-29] MEDS: Enoxaparin Inj 30 MG/0.3 ML Syringe SQ SCH ×2 (09:00→20:50)
[2018-04-29] MEDS: Folic Acid 1 MG Tablet PO SCH (09:10)
[2018-04-29] MEDS: Famotidine 20 MG Tablet PO SCH ×2 (09:10→20:44)
[2018-04-29] MEDS: Gabapentin 400 MG Capsule PO SCH ×3 (09:10→17:23)
[2018-04-29] MEDS: Lactobacillus Acidophilus/L. Spores Tablet PO SCH ×3 (09:10→17:23)
[2018-04-29] MEDS: Senna/Docusate Sodium 8.6/50 MG Tablet PO SCH ×2 (09:10→20:44)
--- NOTE | 2018-04-30 06:35 | P.PNOP ---
Subjective Interval history: s/p I&D left leg POD 18 s/p ORIF right foot POD 20 s/p soleus flap POD 20 s/p ORIF left distal femur POD 25 s/p ORIF left ankle s/p right hand fxs doing well. no changes Physical Exam Vital signs: Vital Signs 04/29/18 08:00 04/29/18 12:00 04/29/18 16:00 Temperature 98.0 F 98.1 F 98.4 F Pulse Rate 87 112 H 119 H Respiratory Rate 16 16 16 Blood Pressure 107/63 110/56 L 136/66 Pulse Oximetry 93 L 96 99 04/29/18 20:00 04/30/18 00:00 04/30/18 04:00 Temperature 99.2 F 99.0 F 98.8 F Pulse Rate 111 H 116 H 110 H Respiratory Rate 18 16 16 Blood Pressure 112/70 129/67 113/65 Pulse Oximetry 95 98 98 Intake & Output 04/29/18 04/29/18 04/30/18 06:59 18:59 06:59 Output Total 2150 / 2150 900 / 900 Balance -2150 / -2150 -900 / -900 Weight 101.6 kg 99.1 kg Output: Urine 2150 / 2150 900 / 900 Other: Mode Setting Left Leg Intermittent Right Upper Posterior Thigh Intermittent Intermittent # Voids 2 1,650 Date of Last Bowel Movement 04/28/18 # Bowel Movements 1 Narrative: LLE: +vac. good seal. +exfix. nvi RLE: +splint. intact. nvi - Urinary Catheter Management Indwelling Urethral Catheter Cath placed during this visit: yes, but has since been removed by the nurse Reason for continuing: Acute urinary retention Insertion date: 04/03/18 Insertion time: 14:10 Removal date: 04/07/18 Removal time: 09:30 Results - Labs CBC & Chem 7: 04/26/18 08:14 04/26/18 04:13 Assessment and Plan - Assessment and Plan POD 18 open reduction internal fixation of right Lisfranc fracture dislocations of foot and distal fibula fracture ORIF POD 20 s/p ORIF left distal lateral femur POD 20 s/p soleus muscle flap left leg, POD 10 Gastroc flap and vac change POD 25 s/p ORIF left ankle s/p right hand fx s/p left open leg wound Large serous collection right hip -continue to watch and let body reabsorb. It will take weeks to months to fully reabsorb Nonweightbearing bilateral lower extremities, nonweightbearing right hand regular diet due to minimal granulation tissue intra-op, will consult dietary services maintain vac at all times left leg 125 mmHg with DPC 3:1 maintain splint right foot and hand plan for OR today for I&D and vac change left leg
[2018-04-30] MEDS ORDERED: Chlorhexidine Gluconate 2% 1 Pack (2 Cloths) TOPICAL ONE (09:31)
[2018-04-30] MEDS ORDERED: Metoprolol Tartrate 25 MG Tablet PO ONE (09:31)
[2018-04-30] MEDS ORDERED: Lidocaine PF 1% Inj 5 ML Syringe OTHER ONE (09:56)
[2018-04-30] MEDS ORDERED: Phenylephrine/NS 1000 MCG/10ML Syringe IV.PUSH ONE (09:56)
[2018-04-30] MEDS ORDERED: Sodium Chlor 0.9% Inj 500 ML IV.SIG SCH (10:00)
[2018-04-30] MEDS ORDERED: Post-op Orders (for Pharmacy) OTHER STA (10:33)
--- NOTE | 2018-04-30 10:39 | P.OP ---
- Preoperative Diagnosis (1) Degloving injury of left lower leg Date of procedure: 04/30/18 Procedure: Irrigation and debridement left leg, application of wound VAC dressing Anesthesia: GETA Surgeon: Ceferino Moore MD Adult Care Manager: SCOTT Schuler PA-C The surgical procedure was assisted by my physician cosmetic sales assistant. My P.A. presence was necessary throughout this case for the manipulation and positioning of the surgical extremity. My P.A. was assisting me throughout the duration of this procedure. The skill set of a physician cosmetic sales assistant was medically necessary to complete this procedure. During the surgical case the biomedical electronics technician was working at the back table and the physician cosmetic sales assistant was directly assisting me. Operation and Findings: Juan returns operating today for treatment of left leg injury. Informed consent was confirmed and operative site was marked. He is brought the operating room. He was given IV sedation and general anesthesia. Left leg was prepped with alcohol followed Hibiclens and draped in usual sterile fashion. Timeout procedure was performed. Procedure began with debridement of the left leg. Overall the wound appeared to be healthy. Curettes and rongeurs were used to perform excisional debridement. Curettes were used to clean bone. The [place] graft appears to be incorporating in most areas. After completion of excisional debridement, the wound was thoroughly irrigated with sterile saline. At this point a VAC dressing was reapplied. The VAC dressing was cut to fit the wound. Adaptic was placed over the graft. VAC dressing was sealed appropriately. The seal was checked. Patient was awakened and transferred to recovery room in stable condition.
[2018-04-30] MEDS: Folic Acid 1 MG Tablet PO SCH (14:44)
[2018-04-30] MEDS: Enoxaparin Inj 30 MG/0.3 ML Syringe SQ SCH ×2 (14:45→21:14)
[2018-04-30] MEDS: Lactobacillus Acidophilus/L. Spores Tablet PO SCH ×2 (14:45→18:27)
[2018-04-30] MEDS: Gabapentin 400 MG Capsule PO SCH ×2 (14:46→18:27)
[2018-04-30] MEDS: Senna/Docusate Sodium 8.6/50 MG Tablet PO SCH ×2 (14:46→21:14)
[2018-04-30] MEDS: Famotidine 20 MG Tablet PO SCH ×2 (14:46→21:16)
--- NOTE | 2018-05-01 06:42 | P.PNOP ---
Subjective Interval history: Resting comfortably with no new complaints Physical Exam Vital signs: Vital Signs 04/30/18 08:00 04/30/18 11:25 04/30/18 11:30 Temperature 98.7 F 97.8 F Pulse Rate 101 H 101 H 101 H Respiratory Rate 16 12 11 L Blood Pressure 108/74 107/69 102/70 Pulse Oximetry 97 100 100 04/30/18 11:45 04/30/18 12:00 04/30/18 12:30 Temperature 97.9 F 97.9 F Pulse Rate 98 H 96 H 99 H Respiratory Rate 14 14 18 Blood Pressure 112/72 112/72 117/64 Pulse Oximetry 100 100 94 L 04/30/18 16:00 04/30/18 16:21 04/30/18 20:00 Temperature 97.8 F 98.9 F Pulse Rate 112 H 111 H Respiratory Rate 16 17 Blood Pressure 118/67 122/59 L Pulse Oximetry 97 93 L 96 05/01/18 00:00 05/01/18 04:00 Temperature 99.6 F 99.5 F Pulse Rate 120 H 114 H Respiratory Rate 17 18 Blood Pressure 114/62 111/62 Pulse Oximetry 97 96 Intake & Output 04/30/18 04/30/18 05/01/18 06:59 18:59 06:59 Intake Total 800 / 800 Output Total 605 / 605 1625 / 1625 Balance 195 / 195 -1625 / -1625 Weight 99.1 kg 99.6 kg Intake: Anesthesia Amount 800 / 800 Output: Urine 600 / 600 1625 / 1625 Estimated Blood Loss 5 / 5 Other: Mode Setting Right Upper Posterior Thigh Intermittent Continuous Continuous # Voids 1,650 Date of Last Bowel Movement 04/29/18 Narrative: Left lower extremity: External fixator in place with wound VAC intact. Short leg splint in place. Wound VAC has appropriate seal. Intact sensation in all toes with active movement Right lower extremity: Large serous collection over right thigh. Is not draining and does not appear to be infected. Short leg splint in place. Intact sensation distally with active movement of toes - Urinary Catheter Management Indwelling Urethral Catheter Cath placed during this visit: yes, but has since been removed by the nurse Reason for continuing: Acute urinary retention Insertion date: 04/03/18 Insertion time: 14:10 Removal date: 04/07/18 Removal time: 09:30 Results - Labs CBC & Chem 7: 04/26/18 08:14 04/26/18 04:13 Assessment and Plan - Assessment and Plan POD 19 open reduction internal fixation of right Lisfranc fracture dislocations of foot and distal fibula fracture ORIF POD 21 s/p ORIF left distal lateral femur POD 21 s/p soleus muscle flap left leg, POD 11 Gastroc flap and vac change POD 26 s/p ORIF left ankle s/p right hand fx s/p left open leg wound Large serous collection right hip -continue to watch and let body reabsorb. It will take weeks to months to fully reabsorb Nonweightbearing bilateral lower extremities, nonweightbearing right hand regular diet maintain vac at all times left leg 125 mmHg with DPC 3:1 maintain splint bilateral feet and hand We will plan on wound VAC change on Monday bedside. We will plan for possible discharge to [facility] on Monday with planned wound VAC changes on floor.
[2018-05-01] MEDS: Enoxaparin Inj 30 MG/0.3 ML Syringe SQ SCH ×2 (08:54→21:20)
[2018-05-01] MEDS: Folic Acid 1 MG Tablet PO SCH (08:54)
[2018-05-01] MEDS: Lactobacillus Acidophilus/L. Spores Tablet PO SCH ×3 (08:54→18:20)
[2018-05-01] MEDS: Gabapentin 400 MG Capsule PO SCH ×3 (08:54→18:19)
[2018-05-01] MEDS: Famotidine 20 MG Tablet PO SCH ×2 (08:54→21:19)
[2018-05-01] MEDS: Senna/Docusate Sodium 8.6/50 MG Tablet PO SCH ×2 (08:54→21:19)
--- NOTE | 2018-05-02 07:44 | P.PNOP ---
Subjective Interval history: Resting comfortably with no new complaints Physical Exam Vital signs: Vital Signs 05/01/18 08:00 05/01/18 12:00 05/01/18 16:00 Temperature 98.9 F 98.9 F 98.8 F Pulse Rate 107 H 104 H 106 H Respiratory Rate 18 14 15 Blood Pressure 122/62 128/70 115/64 Pulse Oximetry 97 97 97 05/01/18 20:00 05/02/18 00:00 05/02/18 04:00 Temperature 98.5 F 99 F Pulse Rate 113 H 110 H Respiratory Rate 18 18 18 Blood Pressure 119/74 128/69 Pulse Oximetry 96 98 Intake & Output 05/01/18 05/02/18 05/02/18 18:59 06:59 18:59 Intake Total 720 / 720 240 / 240 Output Total 600 / 600 1000 / 1000 Balance 120 / 120 -760 / -760 Weight 106 kg Intake: Oral 720 / 720 240 / 240 Output: Urine 600 / 600 1000 / 1000 Other: Mode Setting Right Upper Posterior Thigh Continuous Continuous # Voids 1 Date of Last Bowel Movement 04/29/18 05/01/18 # Bowel Movements 1 Narrative: Left lower extremity: External fixator in place with wound VAC intact. Short leg splint in place. Wound VAC has appropriate seal. Intact sensation in all toes with active movement Right lower extremity: Large serous collection over right thigh. Is not draining and does not appear to be infected. Short leg splint in place. Intact sensation distally with active movement of toes - Urinary Catheter Management Indwelling Urethral Catheter Cath placed during this visit: yes, but has since been removed by the nurse Reason for continuing: Acute urinary retention Insertion date: 04/03/18 Insertion time: 14:10 Removal date: 04/07/18 Removal time: 09:30 Results - Labs CBC & Chem 7: 04/26/18 08:14 04/26/18 04:13 Assessment and Plan - Assessment and Plan POD 20 open reduction internal fixation of right Lisfranc fracture dislocations of foot and distal fibula fracture ORIF POD 22 s/p ORIF left distal lateral femur POD 22 s/p soleus muscle flap left leg, POD 12 Gastroc flap and vac change POD 28 s/p ORIF left ankle s/p right hand fx s/p left open leg wound Large serous collection right hip -continue to watch and let body reabsorb. It will take weeks to months to fully reabsorb Nonweightbearing bilateral lower extremities, nonweightbearing right hand regular diet maintain vac at all times left leg 125 mmHg with DPC 3:1 maintain splint bilateral feet and hand We will plan on wound VAC change on Monday bedside. We will plan for possible discharge to [facility] on Monday with planned wound VAC changes on floor.
[2018-05-02] MEDS: Senna/Docusate Sodium 8.6/50 MG Tablet PO SCH ×2 (09:07→21:28)
[2018-05-02] MEDS: Gabapentin 400 MG Capsule PO SCH ×3 (09:07→17:18)
[2018-05-02] MEDS: Enoxaparin Inj 30 MG/0.3 ML Syringe SQ SCH ×2 (09:07→21:28)
[2018-05-02] MEDS: Folic Acid 1 MG Tablet PO SCH (09:07)
[2018-05-02] MEDS: Famotidine 20 MG Tablet PO SCH ×2 (09:07→21:28)
[2018-05-02] MEDS: Lactobacillus Acidophilus/L. Spores Tablet PO SCH ×3 (09:07→17:18)
--- NOTE | 2018-05-03 06:35 | P.PNOP ---
Subjective Interval history: Resting comfortably no new complaints Physical Exam Vital signs: Vital Signs 05/02/18 08:00 05/02/18 12:00 05/02/18 16:00 Temperature 98.7 F 98.3 F 99.0 F Pulse Rate 105 H 103 H 101 H Respiratory Rate 16 16 14 Blood Pressure 105/64 123/65 119/65 Pulse Oximetry 94 L 96 95 05/02/18 20:00 05/03/18 00:00 05/03/18 00:20 Temperature 98.6 F 98.6 F Pulse Rate 112 H 119 H Respiratory Rate 18 18 18 Blood Pressure 122/66 129/71 Pulse Oximetry 99 97 05/03/18 05:03 Temperature Pulse Rate Respiratory Rate 18 Blood Pressure Pulse Oximetry Intake & Output 05/02/18 05/02/18 05/03/18 06:59 18:59 06:59 Intake Total 240 / 240 480 / 480 1780 / 1780 Output Total 1000 / 1000 600 / 600 340 / 340 Balance -760 / -760 -120 / -120 1440 / 1440 Weight 106 kg 106.2 kg Intake: Oral 240 / 240 480 / 480 1780 / 1780 Output: Urine 1000 / 1000 600 / 600 300 / 300 Wound Drainage 40 / 40 Left Foot 40 / 40 Other: Mode Setting Right Upper Posterior Thigh Continuous Continuous # Voids 1 2 Date of Last Bowel Movement 05/01/18 05/01/18 05/02/18 # Bowel Movements 1 0 1 Narrative: Left lower extremity: External fixator in place with wound VAC intact. Short leg splint in place. Wound VAC has appropriate seal. Intact sensation in all toes with active movement Right lower extremity: Large serous collection over right thigh. Is not draining and does not appear to be infected. Short leg splint in place. Intact sensation distally with active movement of toes - Urinary Catheter Management Indwelling Urethral Catheter Cath placed during this visit: yes, but has since been removed by the nurse Reason for continuing: Acute urinary retention Insertion date: 04/03/18 Insertion time: 14:10 Removal date: 04/07/18 Removal time: 09:30 Results - Labs CBC & Chem 7: 04/26/18 08:14 04/26/18 04:13 Assessment and Plan - Assessment and Plan POD 21 open reduction internal fixation of right Lisfranc fracture dislocations of foot and distal fibula fracture ORIF POD 23 s/p ORIF left distal lateral femur POD 23 s/p soleus muscle flap left leg, POD 13 Gastroc flap and vac change POD 29 s/p ORIF left ankle s/p right hand fx s/p left open leg wound Large serous collection right hip -continue to watch and let body reabsorb. It will take weeks to months to fully reabsorb Nonweightbearing bilateral lower extremities, nonweightbearing right hand regular diet maintain vac at all times left leg 125 mmHg with DPC 3:1 maintain splint bilateral feet and hand We will plan on wound VAC change on Monday bedside. We will need an extra large wound VAC, Ioban, four large Adaptic's, three- quarter drape and towels from the OR and bacitracin we will plan for possible discharge to [facility] on Monday with planned wound VAC changes on floor.
[2018-05-03] MEDS: Folic Acid 1 MG Tablet PO SCH (09:15)
[2018-05-03] MEDS: Famotidine 20 MG Tablet PO SCH ×2 (09:15→20:34)
[2018-05-03] MEDS: Gabapentin 400 MG Capsule PO SCH ×4 (09:15→17:12)
[2018-05-03] MEDS: Lactobacillus Acidophilus/L. Spores Tablet PO SCH ×5 (09:15→17:17)
[2018-05-03] MEDS: Enoxaparin Inj 30 MG/0.3 ML Syringe SQ SCH ×2 (09:16→20:34)
[2018-05-03] MEDS: Senna/Docusate Sodium 8.6/50 MG Tablet PO SCH ×2 (12:21→20:34)
[2018-05-04] MEDS ORDERED: Sodium Chlor 0.9% Inj 500 ML IV.CONT ONE (03:30)
[2018-05-04] MEDS ORDERED: Chlorhexidine Gluconate 2% 1 Pack (2 Cloths) TOPICAL ONE (03:30)
[2018-05-04 05:59] VITALS: PULSE 105
--- NOTE | 2018-05-04 07:40 | P.PNOP ---
Subjective Interval history: Resting comfortably with no new complaints. Physical Exam Vital signs: Vital Signs 05/03/18 08:00 05/03/18 12:00 05/03/18 12:22 Temperature 98.7 F 97.8 F Pulse Rate 104 H 108 H Respiratory Rate 18 17 18 Blood Pressure 119/73 140/82 Pulse Oximetry 96 99 05/03/18 16:00 05/03/18 20:00 05/03/18 20:59 Temperature 98.1 F 98.7 F Pulse Rate 109 H 105 H Respiratory Rate 18 16 18 Blood Pressure 116/71 112/70 Pulse Oximetry 96 96 05/04/18 00:00 05/04/18 04:00 Temperature 98.3 F 98.3 F Pulse Rate 108 H 105 H Respiratory Rate 17 17 Blood Pressure 118/72 121/78 Pulse Oximetry 99 97 Intake & Output 05/03/18 05/04/18 05/04/18 18:59 06:59 18:59 Intake Total 1949 Output Total 2225 / 2225 30 / 30 Balance -275 / -275 -30 / -30 Intake: Oral 1949 Output: Urine 2200 / 2200 Wound Drainage 30 / 30 Left Foot 30 / 30 Wound Vac Amount 25 / 25 Right Upper Posterior Thigh 25 / Other: Mode Setting Right Upper Posterior Thigh Continuous Continuous # Voids 2 Date of Last Bowel Movement 05/02/18 # Bowel Movements 1 Narrative: Left lower extremity: External fixator in place with wound VAC intact. Short leg splint in place. Dressing and wound VAC taken down showing maintained collagen grafts over open wounds. There is slight darkening over the anterior tibia of approximately 1 cm x 3 cm. New wound VAC applied with Adaptic and bacitracin between the sponge and the grafts. Seals appropriate at 125 mg of mercury at intermittent 5: 2. Posterior short leg splint reapplied Right lower extremity: Large serous collection over right thigh. Is not draining and does not appear to be infected. Short leg splint in place. Intact sensation distally with active movement of toes - Urinary Catheter Management Indwelling Urethral Catheter Cath placed during this visit: yes, but has since been removed by the nurse Reason for continuing: Acute urinary retention Insertion date: 04/03/18 Insertion time: 14:10 Removal date: 04/07/18 Removal time: 09:30 Results - Labs CBC & Chem 7: 04/26/18 08:14 04/26/18 04:13 Assessment and Plan - Assessment and Plan POD 22 open reduction internal fixation of right Lisfranc fracture dislocations of foot and distal fibula fracture ORIF POD 24 s/p ORIF left distal lateral femur POD 25 s/p soleus muscle flap left leg, POD 14 Gastroc flap and vac change POD 30 s/p ORIF left ankle s/p right hand fx s/p left open leg wound Large serous collection right hip -continue to watch and let body reabsorb. It will take weeks to months to fully reabsorb Nonweightbearing bilateral lower extremities, nonweightbearing right hand regular diet maintain vac at all times left leg 125 mmHg with DPC 5:2 maintain splint bilateral feet and hand DC plans to [facility]. May be discharged when accepted We will plan on wound VAC changes to be done bedside at [facility].
[2018-05-04 08:03] VITALS: BP 125/75; RESP 18; TEMP 98.2; O2SAT 18
[2018-05-04] MEDS: Folic Acid 1 MG Tablet PO SCH (09:52)
[2018-05-04] MEDS: Famotidine 20 MG Tablet PO SCH (09:54)
[2018-05-04] MEDS: Gabapentin 400 MG Capsule PO SCH (09:55)
[2018-05-04] MEDS: Lactobacillus Acidophilus/L. Spores Tablet PO SCH (09:55)
[2018-05-04] MEDS: Enoxaparin Inj 30 MG/0.3 ML Syringe SQ SCH (09:56)
[2018-05-04] MEDS: Senna/Docusate Sodium 8.6/50 MG Tablet PO SCH (09:59)
[2018-05-04] MEDS ORDERED: Influenza (Quadrivalent) Vaccine 0.5 ML Syringe IM ONE (12:00)
== END 2018-05-04 12:07 ==
LOC: NEPI 13:02 → EDBD 14:01 → NEDA 14:01 → N03 17:25 → N06 04-04 17:09
PROVIDERS: ADMIT Surgery Trauma Surgery; ATTEND Orthopaedic Surgery Orthopaedic Trauma
PROC: ORIFANK (2018-04-05 08:51)